=== PATIENT | female | born 1950 | race African-American/Black ===

== ENCOUNTER 2018-09-25 19:46 | Inpatient (IN) | payer OTHER ==
[~2018-09-25] VITALS: Ht 175.3 cm; Wt 109.8 kg
[2018-09-25] MEDS ORDERED: LOSARTAN POTASS25 MG ORAL (20:00)
[2018-09-25] MEDS ORDERED: MULTIVITAMINS1 EA14 PO (20:00)
--- NOTE | 2018-09-25 20:00 | Emergency Room Report ---
History of Present Illness General Chief Complaint: Chest Pain Source: Patient, Medical Record Present Illness HPI Patient presents with complaints of chest pain Reports that she was getting ready to sit down when she felt the pain in the left upper chest radiated to her left arm and shoulder paramedics were summoned patient was given nitroglycerin She was found to have an elevated blood pressure patient reports that she has kidney disease CHF autoimmune disease Patient reports that she is not very good at taking medications as she feels that they have caused her kidney failure denies any other Headache denies any vomiting or diarrhea patient reports that she also has chronic diffuse body pain secondary to her fibromyalgia Allergies: Coded Allergies: GLUTEN (Verified Allergy, Intermediate, 09/25/18) report Nut Tree (Verified Allergy, Intermediate, 09/25/18) breaks out in rash ASPIRIN (Verified Allergy, Unknown, 09/25/18) IODINE (Verified Allergy, Unknown, 09/25/18) PENICILLINS (Verified Allergy, Unknown, 09/25/18) SHELLFISH DERIVED (Verified Allergy, Unknown, 09/25/18) SULFA (SULFONAMIDE ANTIBIOTICS) (Verified Allergy, Unknown, 09/25/18) Patient History Past Medical History: see triage record Pertinent Family History: none Last Menstrual Period: n/a Reviewed Nursing Documentation: PMH: Agreed; PSxH: Agreed Nursing Documentation-PMH Hx COPD: Yes - COPD Review of Systems All Other Systems: negative except mentioned in HPI Physical Exam Vital Signs Date Time Temp Pulse Resp B/P (MAP) Pulse Ox O2 Delivery O2 Flow Rate FiO2 09/25/18 19:38 98.2 60 18 209/112 (144) 99 Room Air Sp02 EP Interpretation: reviewed, normal General Appearance: well appearing, no apparent distress Head: normocephalic, atraumatic Eyes: bilateral eye PERRL, bilateral eye EOMI ENT: hearing grossly normal, normal pharynx, TMs + canals normal, uvula midline Neck: full range of motion, supple, no meningismus, no bony tend Respiratory: lungs clear, normal breath sounds, no rhonchi, no respiratory distress, no retraction, no accessory muscle use Cardiovascular #1: normal peripheral pulses, regular rate, rhythm, no gallop, no JVD, no murmur Gastrointestinal: normal bowel sounds, non tender, soft, no mass, no organomegaly, non-distended, no guarding, no hernia, no pulsatile mass, no rebound Genitourinary: no CVA tenderness Musculoskeletal: other - Some weakness on the left compared to the right from previous CVA Neurologic: oriented x3, responsive, paginator III-XII nml as tested, motor strength/ tone normal, sensory intact Psychiatric: mood/affect normal Skin: palpation normal, other - Edema bilaterally Lymphatic: other - Edema bilaterally Medical Decision Making Diagnostic Impression: Primary Impression: ACS (acute coronary syndrome) Additional Impressions: CHF (congestive heart failure) Hypertensive emergency ER Course Patient is a fairly complex patient with multiple differential to consideration including but not limited to cardiac cardiopulmonary and vascular emergencies Patient's blood work initially are appropriate x-ray shows some evidence of congestion Patient provided with medications continues to do better and requires further inpatient care Labs Test 09/25/18 20:00 White Blood Count 7.1 K/UL (4.8-10.8) Red Blood Count 4.58 M/UL (4.20-5.40) Hemoglobin 13.5 G/DL (12.0-16.0) Hematocrit 40.9 % (37.0-47.0) Mean Corpuscular Volume 89 FL (80-99) Mean Corpuscular Hemoglobin 29.5 PG (27.0-31.0) Mean Corpuscular Hemoglobin Concent 33.0 G/DL (32.0-36.0) Red Cell Distribution Width 12.8 % (11.6-14.8) Platelet Count 217 K/UL (150-450) Mean Platelet Volume 9.1 FL (6.5-10.1) Neutrophils (%) (Auto) 61.8 % (45.0-75.0) Lymphocytes (%) (Auto) 27.2 % (20.0-45.0) Monocytes (%) (Auto) 7.1 % (1.0-10.0) Eosinophils (%) (Auto) 2.6 % (0.0-3.0) Basophils (%) (Auto) 1.3 % (0.0-2.0) Sodium Level 140 MMOL/L (136-145) Potassium Level 4.0 MMOL/L (3.5-5.1) Chloride Level 103 MMOL/L (98-107) Carbon Dioxide Level 30 MMOL/L (21-32) Anion Gap 7 mmol/L (5-15) Blood Urea Nitrogen 19 mg/dL (7-18) Creatinine 1.3 MG/DL (0.55-1.30) Estimat Glomerular Filtration Rate 41.0 mL/min (>60) Glucose Level 110 MG/DL (74-106) Calcium Level 9.9 MG/DL (8.5-10.1) Total Bilirubin 0.4 MG/DL (0.2-1.0) Aspartate Amino Transf (AST/SGOT) 17 U/L (15-37) Alanine Aminotransferase (ALT/SGPT) 25 U/L (12-78) Alkaline Phosphatase 92 U/L (46-116) Total Creatine Kinase 68 U/L (26-308) Creatine Kinase MB < 0.5 NG/ML (0.0-3.6) Creatine Kinase MB Relative Index 0.7 Troponin I 0.005 ng/mL (0.000-0.056) Pro-B-Type Natriuretic Peptide 169 pg/mL (0-125) Total Protein 8.1 G/DL (6.4-8.2) Albumin 4.4 G/DL (3.4-5.0) Globulin 3.7 g/dL Albumin/Globulin Ratio 1.2 (1.0-2.7) Lipase 177 U/L (73-393) EKG Diagnostic Results Rate: normal Rhythm: NSR ST Segments: other - lvh Rhythm Strip Diag. Results EP Interpretation: yes Rate: 66 Rhythm: NSR, no PVC's, no ectopy Chest X-Ray Diagnostic Results Chest X-Ray Diagnostic Results : Chest X-Ray Ordered: Yes # of Views/Limited/Complete: 1 View Indication: Chest Pain EP Interpretation: Yes Interpretation: no consolidation, no effusion, no pneumothorax, other - cardiomegaly Impression: Other - cardiomegaly, mild congestion Electronically Signed by: Lu Diamond DO Last Vital Signs Date Time Temp Pulse Resp B/P (MAP) Pulse Ox O2 Delivery O2 Flow Rate FiO2 09/25/18 19:38 98.2 60 18 209/112 (144) 99 Room Air Status: improved Disposition: ADMITTED INPATIENT Condition: Serious Lu Diamodn DO Sep 25, 2018 20:00
[2018-09-25] MEDS ORDERED: Morphine Sulfate 10mg/ml Inj IVP ONE (20:15)
[2018-09-25 20:20] LABS: BASOPHILS % (AUTO) 1.3 % (0.0-2.0); EOSINOPHILS % (AUTO) 2.6 % (0.0-3.0); HEMATOCRIT 40.9 % (37.0-47.0); HEMOGLOBIN 13.5 G/DL (12.0-16.0); LYMPHOCYTES % (AUTO) 27.2 % (20.0-45.0); MEAN CORPUSCULAR VOLUME 89 FL (80-99); MONOCYTES % (AUTO) 7.1 % (1.0-10.0); NEUTROPHILS % (AUTO) 61.8 % (45.0-75.0); PLATELET COUNT 217 K/UL (150-450); RED BLOOD COUNT 4.58 M/UL (4.20-5.40); RED CELL DISTRIBUTION WIDTH 12.8 % (11.6-14.8); WHITE BLOOD COUNT 7.1 K/UL (4.8-10.8)
[2018-09-25 20:34] LABS: ANION GAP 7 mmol/L (5-15); BLOOD UREA NITROGEN 19 mg/dL (7-18); CALCIUM 9.9 MG/DL (8.5-10.1); CARBON DIOXIDE 30 MMOL/L (21-32); CHLORIDE 103 MMOL/L (98-107); CREATININE 1.3 MG/DL (0.55-1.30); SODIUM 140 MMOL/L (136-145)
[2018-09-25 20:46] VITALS: BP 209/112
--- NOTE | 2018-09-25 20:46 | NUR ---
ER Nurse Note: Pt BIBA 70 from a sober living facility c/o chest pain. Pt stated LT sided chest pain that radiates to LT arm, 10/10 sharp pain, thats been lasting 20-30 mins prior to arrival. Pt a&ox4, BP 210/106 on route, vitals in range besides BP. Pt ambulatory with assist; walker at bedside. Per EMS, 1 spray of nitro given on route, no relief. Pt has not provided urine; will ask again. Will continue to motnior.
[2018-09-25 20:50] LABS: ALANINE AMINOTRANSFERASE 25 U/L (12-78); ALBUMIN 4.4 G/DL (3.4-5.0); ALBUMIN/GLOBULIN RATIO 1.2 (1.0-2.7); ALKALINE PHOSPHATASE 92 U/L (46-116); ASPARTATE AMINO TRANSFERASE 17 U/L (15-37); BILIRUBIN,TOTAL 0.4 MG/DL (0.2-1.0); CKMB < 0.5 NG/ML (0.0-3.6); CREATINE KINASE 68 U/L (26-308)
--- NOTE | 2018-09-25 21:09 | NUR ---
ER Nurse Note: Pt BP 185/92. All orders completed per ERMD orders. Awaiting admission orders and urine. Pt stated she will not take her BP meds because "it is on the list of harmful medications I saw on TV"; but wants to be on a different BP med. All safety measures met; will continue to montior.
[2018-09-25 22:22] VITALS: BP 168/98
--- NOTE | 2018-09-25 22:22 | NUR ---
ER Nurse Note: Report given to CATHLEEN Hackett in telemetry for continuity of care. Pt a&ox4, VSS, no signs of acute distress. All belongings taken with pt; walker taken.
--- NOTE | 2018-09-25 23:00 | NUR ---
NURSE NOTES: Pt arrived on unit. Awake alert and oriented x4 in stable condition. BP has decreased 175/95. Pt belonging form signed, belongings with pt at bedside. Bed is locked in lowest position, side rails x 2, bed alarm on. call light in reach. will continue to monitor.
[2018-09-25 23:08] VITALS: BP 175/95
[2018-09-26] VITALS: BP 148/77
[2018-09-26] MEDS ORDERED: Morphine Sulfate 2mg/ml Inj(IV/IM USE ONLY) IVP PRN (01:00)
--- NOTE | 2018-09-26 07:15 | NUR ---
NURSE NOTES: I received the patient awake and resting in bed. Patient alert and oriented x4. Patient's bed in the lowest and locked position and call light within reach. Patient does not display any signs of distress or SOB. I will continue to monitor the patient and implement care.
[2018-09-26 08:00] VITALS: BP 167/98
--- NOTE | 2018-09-26 11:00 | NUR ---
Social Service Note KEYLA met with patient to assess for homelessness. Patient is alert,oriented and verbally responsive. Patient is residing at [facility] located at [address] [place] [address]. [place] [id number]. KEYLA spoke with youth program director Wojciech [phone] option 3. Wojciech confirmed patient can return to this program upon discharge. Patient requesting permanent housing. SW explained that there is a process in obtaining permanent housing and that her current program assists with this. SW also discussed [facility] Referral form for bridge/interim housing program. Patient would like to complete application and homeless coordinator will help assist with form completion. Patient didn't want to address contributing factors to her homelessness. Patient not interested in shared housing, independent living or any situation in which she needs to share a room. Patient indicates having a mental health disorder however will not provide diagnosis. Rima Enriquez [phone] listed as an emergency contact but patient wouldn't disclose relationship and didn't want her contacted. Patient will return to [facility] upon discharge. Wojciech to be contacted provide to transport. Patient can dc via taxi. Will continue to monitor and assist as needed.
--- NOTE | 2018-09-26 11:56 | NUR ---
HOMELESS COORDINATOR HC spoke with patient and patient is alert and oriented. Patient does have a contact number, . Patient is currently living at [place] [phone] . Patient has been living at this location for two weeks now. Patient has no personal injury legal assistant. Patient is very interested in applying for the permanent housing program. HC will submit application. Patient receives in $1,800 in SSI. Patient states she is currently not using any drugs. Patient states she does have a mental disorder. Patient refuses resources. Patient is okay and aware of returning back to [facility] upon discharge. Patient has a follow up appointment December 19, 2018 @ 11:20am Dr. Rocio Connell at [facility] [address] [place] [phone] .
[2018-09-26 12:00] VITALS: BP 163/88
--- NOTE | 2018-09-26 13:23 | NUR ---
CASE MANAGEMENT:REVIEW 68 YR OLD FEMALE BIBA FROM [place] CC: CHEST PAIN PMH: ALLERGIC TO ASPIRIN SI: HYPERTENSIVE EMERGENCY. 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
--- NOTE | 2018-09-26 14:29 | Consultation ---
Consult Note Consult Note asked to eval for BP management HPI Patient presents with complaints of chest pain Reports that she was getting ready to sit down when she felt the pain in the left upper chest radiated to her left arm and shoulder paramedics were summoned patient was given nitroglycerin She was found to have an elevated blood pressure patient reports that she has kidney disease CHF autoimmune disease Patient reports that she is not very good at taking medications as she feels that they have caused her kidney failure denies any other Headache denies any vomiting or diarrhea patient reports that she also has chronic diffuse body pain secondary to her fibromyalgia Allergies: ASPIRIN (Verified Allergy, Unknown, 09/25/18) IODINE (Verified Allergy, Unknown, 09/25/18) PENICILLINS (Verified Allergy, Unknown, 09/25/18) SHELLFISH DERIVED (Verified Allergy, Unknown, 09/25/18) SULFA (SULFONAMIDE ANTIBIOTICS) (Verified Allergy, Unknown, 09/25/18) Hx COPD: Yes - COPD interviewed examined data reviewed Assessment/Plan HTN OOC Obese COPD CP . r/o Cardiac ischemia BP management UA check labs per orders Gary Pratt MD Sep 26, 2018 14:29
--- NOTE | 2018-09-26 14:31 | Diagnostic Imaging Report ---
Indication: Chest pain Technique: One view of the chest Comparison: Then Findings: Lungs and pleural spaces are clear. The heart is mildly enlarged. Impression: Borderline cardiomegaly. No acute process
--- NOTE | 2018-09-26 15:25 | Cardiology Report ---
APPROVED REPORT EKG Measurement Heart [id number] Sinus bradycardia Moderate voltage criteria for LVH, may be normal variant Borderline ECG
--- NOTE | 2018-09-26 15:25 | NUR ---
*-* INSURANCE *-* ALL CLINICALS AND REVIEWS HAVE BEEN FAXED TO: [employer] NO EVENT MANAGEMENT CONSULTANT ASSIGNED AT THIS TIME PLEASE FAX THE REVIEW/CLINICAL P- [phone] F- [phone]......REVIEW & CLINICALS
[2018-09-26 16:00] VITALS: BP 185/94
[2018-09-26 17:46] LABS: APPEARANCE,URINE CLEAR; BILIRUBIN, URINE NEGATIVE (NEGATIVE); COLOR,URINE PALE YELLOW; GLUCOSE, URINE (UA) NEGATIVE (NEGATIVE); KETONES,URINE NEGATIVE (NEGATIVE); LEUKOCYTE ESTERASE ,URINE NEGATIVE (NEGATIVE); NITRITE,URINE NEGATIVE (NEGATIVE); PH,URINE 8 (4.5-8.0); PROTEIN,URINE NEGATIVE (NEGATIVE); UROBILINOGEN,URINE NORMAL MG/DL (0.0-1.0)
--- NOTE | 2018-09-26 19:13 | NUR ---
HAND-OFF: Report given to Nlei Reynoso RN.
--- NOTE | 2018-09-26 19:15 | NUR ---
NURSE NOTES: Received report from Neli Estevez RN. Patient in bed AAO X4 with no complaints of acute pain or distress at this time. Kept clean, dry, and comfortable in bed at all times. Able to verbally express needs and wants without difficulty. IV line intact and patent and on continuous cardiac monitoring per protocol. On pure-wick for incontinence and changed when soiled PRN. Placed on RA with no S/S of resp distress or SOB noted at this time, 02 sat at 95-96%. Safety precaution in place; siderails X3 up, call light within reach, bed in lowest position, brakes and alarm on at all times. Needs and wants anticipated and attended, will continue plan of care and monitor for any changes noted.
--- NOTE | 2018-09-26 19:26 | Consultation ---
History of Present Illness General Date patient seen: Sep 26, 2018 Chief Complaint: Present Illness Allergies: Coded Allergies: GLUTEN (Verified Allergy, Intermediate, 09/25/18) report Nut Tree (Verified Allergy, Intermediate, 09/25/18) breaks out in rash ASPIRIN (Verified Allergy, Unknown, 09/25/18) IODINE (Verified Allergy, Unknown, 09/25/18) PENICILLINS (Verified Allergy, Unknown, 09/25/18) SHELLFISH DERIVED (Verified Allergy, Unknown, 09/25/18) SULFA (SULFONAMIDE ANTIBIOTICS) (Verified Allergy, Unknown, 09/25/18) Medication History Scheduled Losartan Potassium* (Losartan Potassium*), 25 MG ORAL DAILY, (Reported) Miscellaneous Medications Multivitamin (Multivitamins), 1 EACH PO, (Reported) Patient History Healthcare decision maker Resuscitation status Full Code Advanced Directive on File Physical Exam Last 24 Hour Vital Signs Date Time Temp Pulse Resp B/P (MAP) Pulse Ox O2 Delivery O2 Flow Rate FiO2 09/26/18 16:00 98.7 52 18 185/94 (124) 96 09/26/18 15:34 48 09/26/18 14:45 68 163/88 09/26/18 12:00 98.4 68 20 163/88 (113) 99 09/26/18 11:56 57 09/26/18 11:10 97.9 09/26/18 09:00 Room Air 09/26/18 08:02 52 09/26/18 08:00 97.9 58 20 167/98 (121) 97 09/26/18 04:00 44 09/26/18 01:38 98.2 09/26/18 00:00 52 09/26/18 00:00 98.2 50 18 148/77 (100) 96 09/25/18 23:20 Room Air 09/25/18 23:08 98.6 54 22 175/95 (121) 97 09/25/18 22:22 98.2 82 17 168/98 99 Room Air 09/25/18 22:22 98.2 84 17 168/98 99 Room Air 09/25/18 20:46 60 18 Room Air 09/25/18 20:46 98.2 86 18 209/112 99 Room Air 09/25/18 19:38 98.2 60 18 209/112 (144) 99 Room Air Intake and Output 09/25/18 09/26/18 19:00 07:00 Intake Total 1500 ml Output Total 400 ml Balance 1100 ml IV Total 1500 ml Output Urine Total 400 ml Laboratory Tests Test 09/25/18 20:00 09/26/18 07:00 09/26/18 17:30 White Blood Count 7.1 K/UL (4.8-10.8) Red Blood Count 4.58 M/UL (4.20-5.40) Hemoglobin 13.5 G/DL (12.0-16.0) Hematocrit 40.9 % (37.0-47.0) Mean Corpuscular Volume 89 FL (80-99) Mean Corpuscular Hemoglobin 29.5 PG (27.0-31.0) Mean Corpuscular Hemoglobin Concent 33.0 G/DL (32.0-36.0) Red Cell Distribution Width 12.8 % (11.6-14.8) Platelet Count 217 K/UL (150-450) Mean Platelet Volume 9.1 FL (6.5-10.1) Neutrophils (%) (Auto) 61.8 % (45.0-75.0) Lymphocytes (%) (Auto) 27.2 % (20.0-45.0) Monocytes (%) (Auto) 7.1 % (1.0-10.0) Eosinophils (%) (Auto) 2.6 % (0.0-3.0) Basophils (%) (Auto) 1.3 % (0.0-2.0) Sodium Level 140 MMOL/L (136-145) Potassium Level 4.0 MMOL/L (3.5-5.1) Chloride Level 103 MMOL/L (98-107) Carbon Dioxide Level 30 MMOL/L (21-32) Anion Gap 7 mmol/L (5-15) Blood Urea Nitrogen 19 mg/dL (7-18) H Creatinine 1.3 MG/DL (0.55-1.30) Estimat Glomerular Filtration Rate 41.0 mL/min (>60) Glucose Level 110 MG/DL (74-106) H Calcium Level 9.9 MG/DL (8.5-10.1) Total Bilirubin 0.4 MG/DL (0.2-1.0) Aspartate Amino Transf (AST/SGOT) 17 U/L (15-37) Alanine Aminotransferase (ALT/SGPT) 25 U/L (12-78) Alkaline Phosphatase 92 U/L (46-116) Total Creatine Kinase 68 U/L (26-308) Creatine Kinase MB < 0.5 NG/ML (0.0-3.6) Creatine Kinase MB Relative Index 0.7 Troponin I 0.005 ng/mL (0.000-0.056) Pro-B-Type Natriuretic Peptide 169 pg/mL (0-125) H Total Protein 8.1 G/DL (6.4-8.2) Albumin 4.4 G/DL (3.4-5.0) Globulin 3.7 g/dL Albumin/Globulin Ratio 1.2 (1.0-2.7) Lipase 177 U/L (73-393) Urine Opiates Screen Positive (NEGATIVE) H Urine Barbiturates Screen Negative (NEGATIVE) Phencyclidine (PCP) Screen Negative (NEGATIVE) Urine Amphetamines Screen Negative (NEGATIVE) Urine Benzodiazepines Screen Negative (NEGATIVE) Urine Cocaine Screen Negative (NEGATIVE) Urine Marijuana (THC) Screen Negative (NEGATIVE) Urine Color Pale yellow Urine Appearance Clear Urine pH 8 (4.5-8.0) Urine Specific [place] 1.010 (1.005-1.035) Urine Protein Negative (NEGATIVE) Urine Glucose (UA) Negative (NEGATIVE) Urine Ketones Negative (NEGATIVE) Urine Blood Negative (NEGATIVE) Urine Nitrite Negative (NEGATIVE) Urine Bilirubin Negative (NEGATIVE) Urine Urobilinogen Normal MG/DL (0.0-1.0) Urine Leukocyte Esterase Negative (NEGATIVE) Urine RBC 0 /HPF (0 - 2) Urine WBC 0 /HPF (0 - 2) Urine Squamous Epithelial Cells Few /LPF (NONE/OCC) Urine Bacteria Moderate /HPF (NONE) H Microbiology Date/Time Source Procedure Growth Status 09/25/18 22:10 Rectum Received Height (Feet): 5 Height (Inches): 9.00 Weight (Pounds): 245 Medications Current Medications Medications (Trade) Dose Ordered Sig/Clyde Route PRN Reason Start Time Stop Time Status Last Admin Dose Admin Acetaminophen (Tylenol) 650 mg Q4H PRN ORAL Mild Pain/Temp > 100.5 09/26/18 00:00 10/26/18 00:00 09/26/18 10:40 Amlodipine Besylate (Norvasc) 10 mg DAILY ORAL 09/26/18 14:45 10/26/18 14:44 Hydralazine HCl (Apresoline) 25 mg Q4H PRN ORAL bp over 160 syst 09/26/18 14:45 10/26/18 14:44 Losartan Potassium (Cozaar) 50 mg DAILY ORAL 09/27/18 09:00 10/27/18 08:59 Morphine Sulfate (Morphine Sulfate) 2 mg Q4H PRN IVP For Pain 09/26/18 01:00 10/03/18 00:59 Ondansetron HCl (Zofran) 4 mg Q6H PRN IVP Nausea & Vomiting 09/26/18 01:00 10/26/18 00:59 Assessment/Plan Assessment/Plan: (1) H/o Stroke (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
[2018-09-26 20:00] VITALS: BP 127/59
[2018-09-26] MEDS: Tylenol #3 tab (300mg/30mg) ORAL PRN (20:52)
--- NOTE | 2018-09-26 20:59 | Consultation ---
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 She reports that she was getting ready to sit down when she felt the pain in the left upper chest radiated to her left arm and shoulder. EMS was activated and she was found to be hypertensive at the scene, where she was given Nitroglycerin. She was brought to [facility] where she also reports that she has noted increasing headaches and episodes of blurred vision in the recent past and currently feels , numb / tingly on the left side of her face, arm and leg. She still has residual left weakness from her previously reported stroke but reports that she is weaker presently than she has been since her stroke. Allergies: Coded Allergies: GLUTEN (Verified Allergy, Intermediate, 09/25/18) report Nut Tree (Verified Allergy, Intermediate, 09/25/18) breaks out in rash ASPIRIN (Verified Allergy, Unknown, 09/25/18) IODINE (Verified Allergy, Unknown, 09/25/18) PENICILLINS (Verified Allergy, Unknown, 09/25/18) SHELLFISH DERIVED (Verified Allergy, Unknown, 09/25/18) SULFA (SULFONAMIDE ANTIBIOTICS) (Verified Allergy, Unknown, 09/25/18) Medication History Scheduled Losartan Potassium* (Losartan Potassium*), 25 MG ORAL DAILY, (Reported) Miscellaneous Medications Multivitamin (Multivitamins), 1 EACH PO, (Reported) Patient History History Provided By: Patient, Medical Record Healthcare decision maker Resuscitation status Full Code Advanced Directive on File Past Medical/Surgical History Past Medical/Surgical History: (1) ESRD (end stage renal disease) (2) Fibromyalgia (3) History of CVA with residual deficit (4) CHF (congestive heart failure) Review of Systems Constitutional: Reports: malaise, weakness; Denies: no symptoms, see HPI, chills, sweats, fever, other Eye: Reports: blurred vision; Denies: no symptoms, see HPI, eye pain, tearing, double vision, nose pain, nose congestion, acuity changes, discharge, other ENT: Denies: no symptoms, see HPI, ear pain, ear discharge, nose pain, nose congestion, throat pain, throat swelling, mouth pain, hearing loss, nasal discharge, other Respiratory: Denies: no symptoms, see HPI, cough, orthopnea, shortness of breath, stridor, wheezing, COLEMAN, sputum, other Cardiovascular: Denies: no symptoms, see HPI, chest pain, edema, palpitations, syncope, PND, other Gastrointestinal: Denies: no symptoms, see HPI, abdominal pain, constipation, diarrhea, nausea, vomiting, melena, hematemesis, other Genitourinary: Denies: no symptoms, see HPI, discharge, dysuria, frequency, hematuria, pain, retention, incontinence, urgency, vag bleed/dc, other Musculoskeletal: Reports: joint pain, muscle pain; Denies: no symptoms, see HPI , back pain, gout, joint swelling, muscle stiffness, other Skin: Denies: no symptoms, see HPI, rash, change in color, change in hair/nails , dryness, lesions, other Psychiatric: Reports: anxiety; Denies: no symptoms, see HPI, prior hx, depressed feelings, emotional problems, SI, HI, hallucinations, other Neurological: Reports: headache, numbness, paresthesia, tingling, focal weakness; Denies: no symptoms, see HPI, seizure, tremors, syncope, dizziness, other Endocrine: Reports: excessive sweating Hematologic/Lymphatic: Denies: no symptoms, see HPI, anemia, blood clots, easy bleeding, easy bruising, swollen glands, diathesis, other Physical Exam General Appearance: WD/WN, no apparent distress, alert, obese Lines, tubes and drains: peripheral HEENT: normocephalic, atraumatic, anicteric, mucous membranes moist, PERRL, EOMI, pharynx normal, supple, no JVD Neck: non-tender, normal alignment, supple, normal inspection Respiratory/Chest: normal breath sounds, no respiratory distress, no accessory muscle use Cardiovascular/Chest: normal peripheral pulses, no JVD Extremities: normal capillary refill, non-pitting, calf tenderness, inflammation, moderate edema Skin Exam: normal pigmentation, warm/dry, no diaphoresis Neurologic: alert, oriented x 3, responsive, normal mood/affect, abnormal CN, motor weakness, sensory deficit Musculoskeletal: normal muscle bulk, no effusion Physical Exam Narrative Residual left plegia in face, arm, leg- but reporting new tingling on left face , arm, leg with increased weakness. Has been able to stand and walk. Uses a 4 wheel walker at baseline. Last 24 Hour Vital Signs Date Time Temp Pulse Resp B/P (MAP) Pulse Ox O2 Delivery O2 Flow Rate FiO2 09/26/18 16:00 98.7 52 18 185/94 (124) 96 09/26/18 15:34 48 09/26/18 14:45 68 163/88 09/26/18 12:00 98.4 68 20 163/88 (113) 99 09/26/18 11:56 57 09/26/18 11:10 97.9 09/26/18 09:00 Room Air 09/26/18 08:02 52 09/26/18 08:00 97.9 58 20 167/98 (121) 97 09/26/18 04:00 44 09/26/18 01:38 98.2 09/26/18 00:00 52 09/26/18 00:00 98.2 50 18 148/77 (100) 96 09/25/18 23:20 Room Air 09/25/18 23:08 98.6 54 22 175/95 (121) 97 09/25/18 22:22 98.2 82 17 168/98 99 Room Air 09/25/18 22:22 98.2 84 17 168/98 99 Room Air Intake and Output 09/25/18 09/26/18 19:00 07:00 Intake Total 1500 ml Output Total 400 ml Balance 1100 ml IV Total 1500 ml Output Urine Total 400 ml Laboratory Tests Test 09/26/18 07:00 09/26/18 17:30 Urine Opiates Screen Positive (NEGATIVE) H Urine Barbiturates Screen Negative (NEGATIVE) Phencyclidine (PCP) Screen Negative (NEGATIVE) Urine Amphetamines Screen Negative (NEGATIVE) Urine Benzodiazepines Screen Negative (NEGATIVE) Urine Cocaine Screen Negative (NEGATIVE) Urine Marijuana (THC) Screen Negative (NEGATIVE) Urine Color Pale yellow Urine Appearance Clear Urine pH 8 (4.5-8.0) Urine Specific [place] 1.010 (1.005-1.035) Urine Protein Negative (NEGATIVE) Urine Glucose (UA) Negative (NEGATIVE) Urine Ketones Negative (NEGATIVE) Urine Blood Negative (NEGATIVE) Urine Nitrite Negative (NEGATIVE) Urine Bilirubin Negative (NEGATIVE) Urine Urobilinogen Normal MG/DL (0.0-1.0) Urine Leukocyte Esterase Negative (NEGATIVE) Urine RBC 0 /HPF (0 - 2) Urine WBC 0 /HPF (0 - 2) Urine Squamous Epithelial Cells Few /LPF (NONE/OCC) Urine Bacteria Moderate /HPF (NONE) H Microbiology Date/Time Source Procedure Growth Status 09/25/18 22:10 Rectum Received Height (Feet): 5 Height (Inches): 9.00 Weight (Pounds): 245 Medications Current Medications Medications (Trade) Dose Ordered Sig/Clyde Route PRN Reason Start Time Stop Time Status Last Admin Dose Admin Acetaminophen (Tylenol) 650 mg Q4H PRN ORAL Mild Pain/Temp > 100.5 09/26/18 00:00 10/26/18 00:00 09/26/18 10:40 Acetaminophen/ Codeine Phosphate (Tylenol #3) 1 tab Q6H PRN ORAL Severe Pain (Pain Scale 7-10) 09/26/18 19:30 10/03/18 19:29 09/26/18 20:52 Amlodipine Besylate (Norvasc) 10 mg DAILY ORAL 09/26/18 14:45 10/26/18 14:44 Hydralazine HCl (Apresoline) 25 mg Q4H PRN ORAL bp over 160 syst 09/26/18 14:45 10/26/18 14:44 Losartan Potassium (Cozaar) 50 mg DAILY ORAL 09/27/18 09:00 10/27/18 08:59 Ondansetron HCl (Zofran) 4 mg Q6H PRN IVP Nausea & Vomiting 09/26/18 01:00 10/26/18 00:59 Assessment/Plan Problem List: (1) ACS (acute coronary syndrome) ICD Codes: I24.9 - Acute ischemic heart disease, unspecified SNOMED: 596429240 (2) Hypertensive emergency ICD Codes: I16.1 - Hypertensive emergency SNOMED: 170545475001592 (3) Fibromyalgia ICD Codes: M79.7 - Fibromyalgia SNOMED: 505899908 (4) CHF (congestive heart failure) ICD Codes: I50.9 - Heart failure, unspecified SNOMED: 98046480 (5) ESRD (end stage renal disease) ICD Codes: N18.6 - End stage renal disease SNOMED: 83537647 (6) History of CVA with residual deficit ICD Codes: I69.30 - Unspecified sequelae of cerebral infarction SNOMED: 262932412 Status: stable, tolerating diet Assessment/Plan: MRI Brain w/o contrast to rule out acute CVA Tropnonin negative TTE ST Swallow eval PT Eval Q4 Hour Neuro Obs Maintain SBP<140 Since allergic to ASA , consider starting PLAVIX Check lipids Check HgBA1c Venous U/S of legs bilaterally Sahara Robin N.P. Sep 26, 2018 20:59
[2018-09-27] VITALS (7 sets, daily range): BP systolic 150–170; BP diastolic 80–89
--- NOTE | 2018-09-27 01:15 | Consultation ---
DATE OF CONSULTATION: 09/26/2018 PAIN MANAGEMENT CONSULTATION CONSULTING PHYSICIAN: Smith Crane M.D. REFERRING PHYSICIAN: Lu Membreno M.D. PHYSICIAN SHOE STAINER: Ramy Santizo CHIEF COMPLAINT: Generalized body pain. HISTORY OF PRESENT ILLNESS: The patient is a 68-year-old female who is being seen on the telemetry floor of [facility] for initial pain management consultation. The patient has been under the care of Dr. Membreno due to complaints of hypertensive emergency and has complaint of generalized body pain. She is reporting that she had a stroke in the past with left-sided weakness and multiple joint pains due to osteoarthritis. Due to this, we were consulted so that the patient would have adequate pain control while here in the hospital. Start the patient on Tylenol No. 3 one tablet every six hours as needed for pain. She seems to understand this and does not want to be on any chronic neuropathic pain medication due to history of use and causing her severe side effects. PAST MEDICAL HISTORY: COPD, history of stroke, congestive heart failure, coronary artery disease, hypertension, DVT, GERD, osteoarthritis, hypothyroidism, and chronic kidney disease. PAST SURGICAL HISTORY: Left ankle fracture. SOCIAL HISTORY: Denies smoking tobacco, drinking alcohol, or drug abuse. ALLERGIES: Aspirin, gluten, iodine, penicillin, shellfish, and sulfa. MEDICATIONS: Losartan. REVIEW OF SYSTEMS: Denies rash, fever, chills, sweating, dizziness, drowsiness, blurred vision, sore throat, change in hearing or weight. No nausea, vomiting, or blood in the stool or urine. No bowel or bladder incontinence. No dysuria. She is complaining of generalized body pain. PHYSICAL EXAMINATION: GENERAL: Alert, awake, oriented. VITAL SIGNS: Blood pressure 185/94, heart rate is 52, oxygen saturation 96%, respirations 18, and temperature 98.7 degrees Fahrenheit. HEENT: PERRLA. NECK: Range of motion is decreased due to the patient's condition. No tenderness to paracervical muscles. No adenopathy. LUNGS: Decreased breath sounds bilaterally. HEART: Regular. ABDOMEN: Obese. BACK: Range of motion is decreased in flexion and extension. EXTREMITIES: Range of motion is decreased due to the patient's condition with left-sided weakness noted. No cyanosis. No clubbing. Edema noted. Sensory is reduced. Reflexes are not obtainable. No adenopathy. ASSESSMENT AND PLAN: This is a 68-year-old female with thalamic pain syndrome, history of stroke, multiple joint osteoarthritis pain. We started patient on Tylenol No. 3 one tablet every 6 hours as needed for severe pain. The patient was discussed with Dr. Crane, and Dr. Crane concurred. We will follow the patient. Thank you very much for the courtesy of this consultation. Smith Crane M.D. CASSIDY Santizo DR: SHASHI JOB#: [id number] CC: MARGIE
[2018-09-27] MEDS: HydrALAZINE 25mg tab ORAL PRN (01:40)
--- NOTE | 2018-09-27 01:40 | NUR ---
NURSE NOTES: Given PRN Hydralazine 25mg Po for BP 170/89. Will re-check again in an hour
--- NOTE | 2018-09-27 02:40 | NUR ---
NURSE NOTES: Rechecked BP. 145/67 with no S/S of distress noted. Will continue to monitor
--- NOTE | 2018-09-27 03:00 | History and Physical Report ---
DATE OF ADMISSION: 09/25/2018 HISTORY OF PRESENT ILLNESS: The patient was admitted basically for chest pain and uncontrolled hypertension. Chest x-ray with vascular congestion. The patient also complains of tingling and numbness on the left side and headache, vomiting, and diaphoresis. In general lower extremity weakness for one day. The patient has history of CVA. [place] The patient has left-sided paresis for one day. He has hypertension, noncompliant with medications. PAST MEDICAL HISTORY: History of CVA, hypertension. PAST SURGICAL HISTORY: Foot surgery, hysterectomy. He usually walks with a walker. MEDICATIONS: He cannot tell what are the medications. ALLERGIES: Aspirin, penicillin, . SOCIAL HISTORY: Denies smoking, alcohol, or illicit drugs: Currently lives in a detention. REVIEW OF SYSTEMS: HEENT: Denies headaches. RESPIRATORY: Denies shortness of breath. Denies cough. CARDIOVASCULAR: Positive for chest pain. No radiation. GASTROINTESTINAL: Denies nausea, vomiting, or diarrhea. EXTREMITIES: Denies pain. CENTRAL NERVOUS SYSTEM: No change in vision or speech pattern; however, does have tingling and paresthesia and left-sided weakness for one day on the left side. Also has headache and complains of headache. PHYSICAL EXAMINATION: VITAL SIGNS: Temperature is 98.4, pulse is 68, blood pressure 163/88. HEENT: PERRLA. NECK: Supple. No lymphadenopathy. CHEST: Clear to auscultation. CARDIOVASCULAR: Regular rate and rhythm. No murmurs or extra sounds. GASTROINTESTINAL: Soft, nontender, and nondistended. No organomegaly. EXTREMITIES: No edema. Moves all four extremities. Sensory intact to light touch. Reflexes are equal on both sides. Does have some residual left-sided weakness, however, this could be from previous stroke. The patient has some weakness on the right side. No facial droop. LABORATORY DATA: WBC of 7.1, hemoglobin 13.5, platelets 217. Sodium 140, potassium 4, BUN of 19, creatinine 1.3, and glucose of 110. ASSESSMENT/PLAN: 1. Rule out CVA. 2. Chest pain. 3. Hypertension and hypertensive urgency. I have asked Dr. Gomez, Dr. Pratt, Dr. Carlos Cohen, Dr. Crane see the patient for the above-mentioned diagnoses as well as for generalized pain management so Dr. Crane will be in-charge for pain management since the patient complains of generalized pain. Lu Membreno M.D. DR: Mari JOB#: [id number] CC:
--- NOTE | 2018-09-27 03:00 | NUR ---
NURSE NOTES: Patient in bed asleep with no S/S of distress noted. Will continue to monitor.
[2018-09-27 07:03] LABS: BASOPHILS % (AUTO) 0.8 % (0.0-2.0); EOSINOPHILS % (AUTO) 5.4 % (0.0-3.0); HEMATOCRIT 34.9 % (37.0-47.0); HEMOGLOBIN 11.6 G/DL (12.0-16.0); LYMPHOCYTES % (AUTO) 34.4 % (20.0-45.0); MEAN CORPUSCULAR VOLUME 92 FL (80-99); MONOCYTES % (AUTO) 8.4 % (1.0-10.0); PLATELET COUNT 165 K/UL (150-450); RED BLOOD COUNT 3.79 M/UL (4.20-5.40); RED CELL DISTRIBUTION WIDTH 13.1 % (11.6-14.8); WHITE BLOOD COUNT 4.2 K/UL (4.8-10.8)
[2018-09-27 07:12] LABS: GAMMA GLUTAMYL TRANSPEPTIDASE 20 U/L (5-85); PHOSPHORUS 3.8 MG/DL (2.5-4.9)
--- NOTE | 2018-09-27 07:20 | NUR ---
NURSE NOTES: Report received from CATHLEEN Garibay. Patient awake having breakfast. AOx4. In RA, denies SOB or any pain. IV R AC 22g, patent, intact, SL. Bed on lowest position, side rails upx2, brakes engaged. Call light within easy reach. Addendum: 09/27/18 at 0757 by Benjamin Rene RN NURSE NOTES: Report received from CATHLEEN Hayden. Patient awake having breakfast. AOx4. In RA, denies SOB or any pain. IV R AC 22g, patent, intact, SL. Bed on lowest position, side rails upx2, brakes engaged. Call light within easy reach
[2018-09-27 07:31] LABS: ALANINE AMINOTRANSFERASE 19 U/L (12-78); ALBUMIN 2.9 G/DL (3.4-5.0); ALBUMIN/GLOBULIN RATIO 0.9 (1.0-2.7); ALKALINE PHOSPHATASE 69 U/L (46-116); ANION GAP 6 mmol/L (5-15); ASPARTATE AMINO TRANSFERASE 12 U/L (15-37); BILIRUBIN,TOTAL 0.4 MG/DL (0.2-1.0); BLOOD UREA NITROGEN 24 mg/dL (7-18); CALCIUM 8.5 MG/DL (8.5-10.1); CARBON DIOXIDE 28 MMOL/L (21-32); CHLORIDE 107 MMOL/L (98-107); CHOLESTEROL 184 MG/DL (< 200); CREATININE 1.3 MG/DL (0.55-1.30); HDL CHOLESTEROL 45 MG/DL (40-60); POTASSIUM 4.2 MMOL/L (3.5-5.1); SODIUM 141 MMOL/L (136-145); TRIGLYCERIDES 58 MG/DL (30-150)
--- NOTE | 2018-09-27 07:37 | NUR ---
HAND-OFF: Report given to Tosha Rene RN. Patient in bed with no S/S of distress noted. Endorsed plan of care.
--- NOTE | 2018-09-27 08:50 | NUR ---
NURSE NOTES: Patient refused both BP meds, Cozaar 50mg, Norvasc 10mg. Teaching done. Pt monetant. Dr. Membreno aware. Advised to communicate with Dr. Pratt or Dr. Gomez. Will follow up
[2018-09-27] MEDS ORDERED: Losartan 50mg tab ORAL SCH ×2 (09:00→18:00)
--- NOTE | 2018-09-27 09:13 | General Progress Note ---
Assessment/Plan Assessment/Plan: (1) H/o Stroke (2) Thalamic pain syndrome (3) Multiple joint OA and pain Patient will be continued on Tylenol #3. D/w Dr. Crane and he concurred. Subjective Date patient seen: Sep 27, 2018 Time patient seen: 08:45 - am Allergies: Coded Allergies: GLUTEN (Verified Allergy, Intermediate, 09/25/18) report Nut Tree (Verified Allergy, Intermediate, 09/25/18) breaks out in rash ASPIRIN (Verified Allergy, Unknown, 09/25/18) IODINE (Verified Allergy, Unknown, 09/25/18) PENICILLINS (Verified Allergy, Unknown, 09/25/18) SHELLFISH DERIVED (Verified Allergy, Unknown, 09/25/18) SULFA (SULFONAMIDE ANTIBIOTICS) (Verified Allergy, Unknown, 09/25/18) Subjective REVIEW OF SYSTEMS: Denies rash, fever, chills, sweating, dizziness, drowsiness, blurred vision, sore throat, change in hearing or weight. No nausea, vomiting, or blood in the stool or urine. No bowel or bladder incontinence. No dysuria. She is complaining of generalized body pain. SUBJECTIVE: Patient is in bed continues to c/o pain which was reduced on the Tylenol #3 from a 10/10 to a 2/10 when taken. She has no new complaints at this time. Objective Last 24 Hour Vital Signs Date Time Temp Pulse Resp B/P (MAP) Pulse Ox O2 Delivery O2 Flow Rate FiO2 09/27/18 04:00 96.6 59 18 152/80 (104) 96 09/27/18 04:00 58 09/27/18 01:40 170/89 09/27/18 00:00 59 09/27/18 00:00 97.8 67 18 170/89 (116) 95 09/26/18 21:00 Room Air 09/26/18 20:00 98.7 64 18 127/59 (81) 97 09/26/18 20:00 55 09/26/18 16:00 98.7 52 18 185/94 (124) 96 09/26/18 15:34 48 09/26/18 14:45 68 163/88 09/26/18 12:00 98.4 68 20 163/88 (113) 99 09/26/18 11:56 57 09/26/18 11:10 97.9 Intake and Output 09/26/18 09/27/18 19:00 07:00 Intake Total 620 ml Output Total 1400 ml 600 ml Balance -780 ml -600 ml Intake Oral 620 ml Output Urine Total 1400 ml 600 ml Laboratory Tests 09/26/18 17:30: Urine Color Pale yellow, Urine Appearance Clear, Urine pH 8, Urine Specific [place] 1.010, Urine Protein Negative, Urine Glucose (UA) Negative, Urine Ketones Negative, Urine Blood Negative, Urine Nitrite Negative, Urine Bilirubin Negative, Urine Urobilinogen Normal, Urine Leukocyte Esterase Negative, Urine RBC 0, Urine WBC 0, Urine Squamous Epithelial Cells Few, Urine Bacteria ModerateH 09/27/18 04:50: White Blood Count 4.2L, Red Blood Count 3.79L, Hemoglobin 11.6L, Hematocrit 34.9L, Mean Corpuscular Volume 92, Mean Corpuscular Hemoglobin 30.7, Mean Corpuscular Hemoglobin Concent 33.3, Red Cell Distribution Width 13.1, Platelet Count 165, Mean Platelet Volume 10.0, Neutrophils (%) (Auto) 51.0, Lymphocytes ( %) (Auto) 34.4, Monocytes (%) (Auto) 8.4, Eosinophils (%) (Auto) 5.4H, Basophils (%) (Auto) 0.8, Sodium Level 141, Potassium Level 4.2, Chloride Level 107, Carbon Dioxide Level 28, Anion Gap 6, Blood Urea Nitrogen 24H, Creatinine 1.3, Estimat Glomerular Filtration Rate 49.7, Glucose Level 99, Hemoglobin A1c 5.3, Uric Acid 3.7, Calcium Level 8.5, Phosphorus Level 3.8, Magnesium Level 2.0 , Total Bilirubin 0.4, Gamma Glutamyl Transpeptidase 20, Aspartate Amino Transf (AST/SGOT) 12L, Alanine Aminotransferase (ALT/SGPT) 19, Alkaline Phosphatase 69 , C-Reactive Protein, Quantitative < 0.4, Pro-B-Type Natriuretic Peptide 226H, Total Protein 6.0L, Albumin 2.9L, Globulin 3.1, Albumin/Globulin Ratio 0.9L, Triglycerides Level 58, Cholesterol Level 184, LDL Cholesterol 126H, HDL Cholesterol 45, Cholesterol/HDL Ratio 4.1, Thyroid Stimulating Hormone (TSH) 0.962 Height (Feet): 5 Height (Inches): 9.00 Weight (Pounds): 242 Objective GENERAL: Alert, awake, oriented. LUNGS: Decreased breath sounds bilaterally. HEART: S1 S2 Regular. ABDOMEN: Obese. EXTREMITIES: No cyanosis. No clubbing. Edema noted. NEURO: No changes. Shlomo Bates Sep 27, 2018 09:13
--- NOTE | 2018-09-27 09:19 | NUR ---
ST NOTE: BEDSIDE SWALLOW EVAL RECEIVED BEDSIDE SWALLOW EVAL ORDER CHART REVIEWED PRIOR THE EVALUATION PT IS A 68-YEAR-OLD FEMALE WHO WAS ADMITTED DUE TO HYPERTENSIVE EMERGENCY AND ACUTE CORONARY SYNDROME PT HAS H/O CVA W/L-SIDED WEAKNESS, COPD, HTN, CHF, KIDNEY DZ, FIBROMYALGIA, PER CXR: BORDERLINE CARDIOMEGALY. NO ACUTE PROCESS. MRI IS PENDING. PT RESIDES IN A INTERMEDIATE HOME. CURRENT STATUS: PT SEEN AT BEDSIDE IN AM. ALERT, COOPERATIVE, ORIENTED, ABLE TO FOLLOW DIRECTIONS. PT DENIED ANY SWALLOWING DIFFICULTY. SPEECH AND VOICE IS CLEAR. GIVEN PO TRIALS: THIN(CUP), PUREE(TSP) AND CRACKER. INITIAL IMPRESSION: POSSIBLE MILD OROPHARYNGEAL DYSPHAGIA FACIAL PARESIS ON THE L-SIDED. GOOD DENTITION, GOOD MASTICATION TIME, SLOW BUT FUNCTIONAL LINGUAL MOVEMENT AND STRENGTH GOOD ORAL TRANSIT TIME, MILDLY REDUCED LARYNGEAL ELEVATION, NO OVERT S/S OF ASPIRATION. PENDING MRI TO R/O ANY NEW CVA. RECOMMENDATIONS: 1. CONTINUE REGULAR WITH THIN LIQUID DIET. 2. ASPIRATION PRECAUTIONS. 3. MEAL OBSERVATION. 4. CONSIDER MODIFIED BARIUM SWALLOW STUDY IF NEEDED(PENDING MRI). D/W PT AND DAVID CONNOLLY
--- NOTE | 2018-09-27 10:20 | NUR ---
CASE MANAGEMENT:REVIEW 09/27/18 SI: R/O CVA. CHEST PAIN. HTN URGENCY 98.5 58 20 160/85 97% ON RA H/H-11.6/34.9 IS: COZAAR PO BID NORVASC PO QD HYDRALAZINE PO Q4HRS PRN : TELEMETRY STATUS DCP: HOMELESS PLAN: MRI BRAIN VENOUS DUPLEX
--- NOTE | 2018-09-27 10:26 | NUR ---
MRI BRAIN COMPLETED
--- NOTE | 2018-09-27 11:38 | Diagnostic Imaging Report ---
Indication: Left hemiparesis, chronic headaches Technique: sagittal T1 fast spin echo, axial T1 FLAIR, axial T2 FLAIR, axial T2 FS PROPELLER, axial T2* GRE, axial diffusion weighted images. ADC and exponential ADC maps generated Comparison: none Findings: There is an area of susceptibility artifact in the right lateral basal ganglia region also demonstrating peripheral low T1 and T2 signal, central sliver of high T2 signal, likely residual from an old intraparenchymal hemorrhage. No abnormal areas of restricted diffusion to suggest acute infarction. No acute hemorrhage or edema. There is periventricular high T2 signal which is asymmetric, greater on the right than on the left. Areas of low T2 FLAIR signal within this may reflect old tiny lacunar infarcts or prominent perivascular spaces. One or more tiny lacunar infarcts are also seen in the left basal ganglia No mass effect nor midline shift. There is mild prominence to the ventricles and extra-axial CSF spaces. The vascular flow voids are preserved. Visualized orbits and sinuses are unremarkable. Impression: Evidence of old microhemorrhage or hemorrhagic infarct in the right basal ganglia Negative for acute intracranial bleed, mass effect, or infarct Mild age-related volume loss Asymmetric periventricular high T2 signal, right greater than left. Most likely on the basis of chronic deep white matter ischemic changes, but the possibility of demyelinating disease should also be considered Old right periventricular deep white matter and left basal ganglia lacunar infarcts.
--- NOTE | 2018-09-27 14:17 | Nephrology Progress Note ---
Assessment/Plan Problem List: (1) Hypertensive emergency (2) Bradycardia Assessment: likely medication related (3) Obese Assessment HTN OOC- Obese- COPD CP . r/o Cardiac ischemia Plan BP management watch HR UA check labs per orders Subjective ROS Limited/Unobtainable: No Constitutional: Reports: malaise Objective Objective Last 24 Hour Vital Signs Date Time Temp Pulse Resp B/P (MAP) Pulse Ox O2 Delivery O2 Flow Rate FiO2 09/27/18 11:08 59 162/85 09/27/18 09:00 160/85 09/27/18 09:00 59 160/85 09/27/18 09:00 Room Air 09/27/18 08:00 98.5 58 20 160/85 (110) 97 09/27/18 08:00 65 09/27/18 04:00 96.6 59 18 152/80 (104) 96 09/27/18 04:00 58 09/27/18 01:40 170/89 09/27/18 00:00 59 09/27/18 00:00 97.8 67 18 170/89 (116) 95 09/26/18 21:00 Room Air 09/26/18 20:00 98.7 64 18 127/59 (81) 97 09/26/18 20:00 55 09/26/18 16:00 98.7 52 18 185/94 (124) 96 09/26/18 15:34 48 09/26/18 14:45 68 163/88 Intake and Output 09/26/18 09/27/18 19:00 07:00 Intake Total 620 ml Output Total 1400 ml 600 ml Balance -780 ml -600 ml Intake Oral 620 ml Output Urine Total 1400 ml 600 ml Laboratory Tests 09/26/18 17:30: Urine Color Pale yellow, Urine Appearance Clear, Urine pH 8, Urine Specific [place] 1.010, Urine Protein Negative, Urine Glucose (UA) Negative, Urine Ketones Negative, Urine Blood Negative, Urine Nitrite Negative, Urine Bilirubin Negative, Urine Urobilinogen Normal, Urine Leukocyte Esterase Negative, Urine RBC 0, Urine WBC 0, Urine Squamous Epithelial Cells Few, Urine Bacteria ModerateH 09/27/18 04:50: White Blood Count 4.2L, Red Blood Count 3.79L, Hemoglobin 11.6L, Hematocrit 34.9L, Mean Corpuscular Volume 92, Mean Corpuscular Hemoglobin 30.7, Mean Corpuscular Hemoglobin Concent 33.3, Red Cell Distribution Width 13.1, Platelet Count 165, Mean Platelet Volume 10.0, Neutrophils (%) (Auto) 51.0, Lymphocytes ( %) (Auto) 34.4, Monocytes (%) (Auto) 8.4, Eosinophils (%) (Auto) 5.4H, Basophils (%) (Auto) 0.8, Sodium Level 141, Potassium Level 4.2, Chloride Level 107, Carbon Dioxide Level 28, Anion Gap 6, Blood Urea Nitrogen 24H, Creatinine 1.3, Estimat Glomerular Filtration Rate 49.7, Glucose Level 99, Hemoglobin A1c 5.3, Uric Acid 3.7, Calcium Level 8.5, Phosphorus Level 3.8, Magnesium Level 2.0 , Total Bilirubin 0.4, Gamma Glutamyl Transpeptidase 20, Aspartate Amino Transf (AST/SGOT) 12L, Alanine Aminotransferase (ALT/SGPT) 19, Alkaline Phosphatase 69 , C-Reactive Protein, Quantitative < 0.4, Pro-B-Type Natriuretic Peptide 226H, Total Protein 6.0L, Albumin 2.9L, Globulin 3.1, Albumin/Globulin Ratio 0.9L, Triglycerides Level 58, Cholesterol Level 184, LDL Cholesterol 126H, HDL Cholesterol 45, Cholesterol/HDL Ratio 4.1, Thyroid Stimulating Hormone (TSH) 0.962 Height (Feet): 5 Height (Inches): 9.00 Weight (Pounds): 242 General Appearance: no apparent distress Cardiovascular: bradycardia Respiratory/Chest: decreased breath sounds Abdomen: soft Gary Pratt MD Sep 27, 2018 14:17
--- NOTE | 2018-09-27 14:32 | NUR ---
*-* INSURANCE *-* ALL CLINICALS AND REVIEWS HAVE BEEN FAXED TO: [employer] NO WHIRLEY OPERATOR ASSIGNED AT THIS TIME PLEASE FAX THE REVIEW/CLINICAL P- [phone] F- [phone]......REVIEW & CLINICALS
[2018-09-27] MEDS: Tylenol #3 tab (300mg/30mg) ORAL PRN (16:51)
--- NOTE | 2018-09-27 17:13 | Neurology Progress Note ---
Interim History Interim History ROS Limited/Unobtainable: No Complaints: Paresthesia/ Weakness Interim History This visit was performed on September 27, [address] bruce Hernandez. Review of Systems Neuro Review of Systems Stable, alert and oriented - ambulating with prior residual weakness. Objective Physical Exam Last Vital Signs Date Time Temp Pulse Resp B/P (MAP) Pulse Ox O2 Delivery O2 Flow Rate FiO2 09/27/18 16:00 98.1 58 18 155/85 (108) 96 09/27/18 09:00 Room Air Laboratory Tests Test 09/26/18 17:30 09/27/18 04:50 Urine Color Pale yellow Urine Appearance Clear Urine pH 8 (4.5-8.0) Urine Specific [place] 1.010 (1.005-1.035) Urine Protein Negative (NEGATIVE) Urine Glucose (UA) Negative (NEGATIVE) Urine Ketones Negative (NEGATIVE) Urine Blood Negative (NEGATIVE) Urine Nitrite Negative (NEGATIVE) Urine Bilirubin Negative (NEGATIVE) Urine Urobilinogen Normal MG/DL (0.0-1.0) Urine Leukocyte Esterase Negative (NEGATIVE) Urine RBC 0 /HPF (0 - 2) Urine WBC 0 /HPF (0 - 2) Urine Squamous Epithelial Cells Few /LPF (NONE/OCC) Urine Bacteria Moderate /HPF (NONE) H White Blood Count 4.2 K/UL (4.8-10.8) L Red Blood Count 3.79 M/UL (4.20-5.40) L Hemoglobin 11.6 G/DL (12.0-16.0) L Hematocrit 34.9 % (37.0-47.0) L Mean Corpuscular Volume 92 FL (80-99) Mean Corpuscular Hemoglobin 30.7 PG (27.0-31.0) Mean Corpuscular Hemoglobin Concent 33.3 G/DL (32.0-36.0) Red Cell Distribution Width 13.1 % (11.6-14.8) Platelet Count 165 K/UL (150-450) Mean Platelet Volume 10.0 FL (6.5-10.1) Neutrophils (%) (Auto) 51.0 % (45.0-75.0) Lymphocytes (%) (Auto) 34.4 % (20.0-45.0) Monocytes (%) (Auto) 8.4 % (1.0-10.0) Eosinophils (%) (Auto) 5.4 % (0.0-3.0) H Basophils (%) (Auto) 0.8 % (0.0-2.0) Sodium Level 141 MMOL/L (136-145) Potassium Level 4.2 MMOL/L (3.5-5.1) Chloride Level 107 MMOL/L (98-107) Carbon Dioxide Level 28 MMOL/L (21-32) Anion Gap 6 mmol/L (5-15) Blood Urea Nitrogen 24 mg/dL (7-18) H Creatinine 1.3 MG/DL (0.55-1.30) Estimat Glomerular Filtration Rate 49.7 mL/min (>60) Glucose Level 99 MG/DL (74-106) Hemoglobin A1c 5.3 % (4.3-6.0) Uric Acid 3.7 MG/DL (2.6-7.2) Calcium Level 8.5 MG/DL (8.5-10.1) Phosphorus Level 3.8 MG/DL (2.5-4.9) Magnesium Level 2.0 MG/DL (1.8-2.4) Total Bilirubin 0.4 MG/DL (0.2-1.0) Gamma Glutamyl Transpeptidase 20 U/L (5-85) Aspartate Amino Transf (AST/SGOT) 12 U/L (15-37) L Alanine Aminotransferase (ALT/SGPT) 19 U/L (12-78) Alkaline Phosphatase 69 U/L (46-116) C-Reactive Protein, Quantitative < 0.4 mg/dL (0.00-0.90) Pro-B-Type Natriuretic Peptide 226 pg/mL (0-125) H Total Protein 6.0 G/DL (6.4-8.2) L Albumin 2.9 G/DL (3.4-5.0) L Globulin 3.1 g/dL Albumin/Globulin Ratio 0.9 (1.0-2.7) L Triglycerides Level 58 MG/DL (30-150) Cholesterol Level 184 MG/DL (< 200) LDL Cholesterol 126 mg/dL (<100) H HDL Cholesterol 45 MG/DL (40-60) Cholesterol/HDL Ratio 4.1 (3.3-4.4) Thyroid Stimulating Hormone (TSH) 0.962 uiU/mL (0.358-3.740) General: well developed, well nourished Head: normocophalic Neck: no rigidity EENT: benign Neurologic Exam Mental Status: awake, alert, oriented x4, normal cognition, good mathematical skills, normal recent memory, normal remote memory, preserved visuospatial function Speech: normal speech, no dysarthia Language: normal language, no aphasia Cranial Nerve II: fundus normal, visual dumont, no papilledema Cranial Nerves III, IV, : PERRLA, EOMI, pupils Cranial Nerve V: normal facial sensations, temporales function normal, masseters function normal, pterygoids function normal Cranial Nerve VII: no facial asymmetry, normal facial expressions Cranial Nerve VIII: normal hearing, no nystagmus Cranial Nerve IX: normal palate elevation, gag response Cranial Nerve X: no voice hoarseness Cranial Nerve XI: SCM symmetric, trapezii function normal Cranial Nerve XII: tongue midline, no tongue atrophy/fasciculations Motor System: normal muscle tone, no involuntary movement, no muscle wasting, other Sensory: normal position sense, normal graphesthesia Coordination: normal finger to nose bilaterally, normal heel to rubio bilaterally, negative Romberg test Deep Tendon Reflexes: 2+ bicep (L), 2+ bicep (R), 2+ tricep (L), 2+ tricep (R) , 2+ brachioradialis (L), 2+ brachioradialis (R), 2+ knee (L), 2+ knee (R), 2+ ankle (L), 2+ ankle (R) Stance: normal Gait: stable, normal regular, heel + toe gait Imaging [facility] [address] [facility] [address] [phone], fax [phone] Catracho Vazquez M.D. Natural Resources Manager Patient : ELEONORA SALAZAR Referring Physician: Sahara Robin N.P. ID Number: [id number] Service Date: 09/27/18 : 1950 Report Date: 09/27/18 Gender: F Accession No.: [id number] Location: Procedure: MRI Brain no Contrast Indication: Left hemiparesis, chronic headaches Technique: sagittal T1 fast spin echo, axial T1 FLAIR, axial T2 FLAIR, axial T2 FS PROPELLER, axial T2* GRE, axial diffusion weighted images. ADC and exponential ADC maps generated Comparison: none Findings: There is an area of susceptibility artifact in the right lateral basal ganglia region also demonstrating peripheral low T1 and T2 signal, central sliver of high T2 signal, likely residual from an old intraparenchymal hemorrhage. No abnormal areas of restricted diffusion to suggest acute infarction. No acute hemorrhage or edema. There is periventricular high T2 signal which is asymmetric, greater on the right than on the left. Areas of low T2 FLAIR signal within this may reflect old tiny lacunar infarcts or prominent perivascular spaces. One or more tiny lacunar infarcts are also seen in the left basal ganglia No mass effect nor midline shift. There is mild prominence to the ventricles and extra-axial CSF spaces. The vascular flow voids are preserved. Visualized orbits and sinuses are unremarkable. Impression: Evidence of old microhemorrhage or hemorrhagic infarct in the right basal ganglia Negative for acute intracranial bleed, mass effect, or infarct Mild age-related volume loss Asymmetric periventricular high T2 signal, right greater than left. Most likely on the basis of chronic deep white matter ischemic changes, but the possibility of demyelinating disease should also be considered Old right periventricular deep white matter and left basal ganglia lacunar infarcts. Dictated By: Jasmeet Parry MD Electronically Signed By: Jasmeet Parry MD Signed Date/Time 09/27/18 1133 CC: Sahara Robin N.P. Impression/Recommendations Problems: (1) ACS (acute coronary syndrome) (2) Hypertensive emergency (3) Fibromyalgia (4) CHF (congestive heart failure) (5) ESRD (end stage renal disease) (6) History of CVA with residual deficit Status: stable Recommendations Likely recrudescence of prior stroke symptoms Carotid Doppler Pending/ Venous leg study MRI negative for new acute infarct/ hemorrhage Maintain SBP< 140 Na 135-145 Q4 neuro obs Sahara Robin N.P. Sep 27, 2018 17:13
--- NOTE | 2018-09-27 19:50 | Cardiology Progress Note ---
Assessment/Plan Assessment/Plan The patient is seen and examined, full consult note will be dictated shortly. Objective Last 24 Hour Vital Signs Date Time Temp Pulse Resp B/P (MAP) Pulse Ox O2 Delivery O2 Flow Rate FiO2 09/27/18 17:38 155/85 09/27/18 16:00 61 09/27/18 16:00 98.1 58 18 155/85 (108) 96 09/27/18 12:00 66 09/27/18 12:00 98.1 57 20 158/81 (106) 97 09/27/18 11:08 59 162/85 09/27/18 09:00 160/85 09/27/18 09:00 59 160/85 09/27/18 09:00 Room Air 09/27/18 08:00 98.5 58 20 160/85 (110) 97 09/27/18 08:00 65 09/27/18 04:00 96.6 59 18 152/80 (104) 96 09/27/18 04:00 58 09/27/18 01:40 170/89 09/27/18 00:00 59 09/27/18 00:00 97.8 67 18 170/89 (116) 95 09/26/18 21:00 Room Air 09/26/18 20:00 98.7 64 18 127/59 (81) 97 09/26/18 20:00 55 Intake and Output 09/26/18 09/27/18 18:59 06:59 Intake Total 620 ml Output Total 1400 ml 600 ml Balance -780 ml -600 ml Intake Oral 620 ml Output Urine Total 1400 ml 600 ml Laboratory Tests Test 09/27/18 04:50 White Blood Count 4.2 K/UL (4.8-10.8) L Red Blood Count 3.79 M/UL (4.20-5.40) L Hemoglobin 11.6 G/DL (12.0-16.0) L Hematocrit 34.9 % (37.0-47.0) L Mean Corpuscular Volume 92 FL (80-99) Mean Corpuscular Hemoglobin 30.7 PG (27.0-31.0) Mean Corpuscular Hemoglobin Concent 33.3 G/DL (32.0-36.0) Red Cell Distribution Width 13.1 % (11.6-14.8) Platelet Count 165 K/UL (150-450) Mean Platelet Volume 10.0 FL (6.5-10.1) Neutrophils (%) (Auto) 51.0 % (45.0-75.0) Lymphocytes (%) (Auto) 34.4 % (20.0-45.0) Monocytes (%) (Auto) 8.4 % (1.0-10.0) Eosinophils (%) (Auto) 5.4 % (0.0-3.0) H Basophils (%) (Auto) 0.8 % (0.0-2.0) Sodium Level 141 MMOL/L (136-145) Potassium Level 4.2 MMOL/L (3.5-5.1) Chloride Level 107 MMOL/L (98-107) Carbon Dioxide Level 28 MMOL/L (21-32) Anion Gap 6 mmol/L (5-15) Blood Urea Nitrogen 24 mg/dL (7-18) H Creatinine 1.3 MG/DL (0.55-1.30) Estimat Glomerular Filtration Rate 49.7 mL/min (>60) Glucose Level 99 MG/DL (74-106) Hemoglobin A1c 5.3 % (4.3-6.0) Uric Acid 3.7 MG/DL (2.6-7.2) Calcium Level 8.5 MG/DL (8.5-10.1) Phosphorus Level 3.8 MG/DL (2.5-4.9) Magnesium Level 2.0 MG/DL (1.8-2.4) Total Bilirubin 0.4 MG/DL (0.2-1.0) Gamma Glutamyl Transpeptidase 20 U/L (5-85) Aspartate Amino Transf (AST/SGOT) 12 U/L (15-37) L Alanine Aminotransferase (ALT/SGPT) 19 U/L (12-78) Alkaline Phosphatase 69 U/L (46-116) C-Reactive Protein, Quantitative < 0.4 mg/dL (0.00-0.90) Pro-B-Type Natriuretic Peptide 226 pg/mL (0-125) H Total Protein 6.0 G/DL (6.4-8.2) L Albumin 2.9 G/DL (3.4-5.0) L Globulin 3.1 g/dL Albumin/Globulin Ratio 0.9 (1.0-2.7) L Triglycerides Level 58 MG/DL (30-150) Cholesterol Level 184 MG/DL (< 200) LDL Cholesterol 126 mg/dL (<100) H HDL Cholesterol 45 MG/DL (40-60) Cholesterol/HDL Ratio 4.1 (3.3-4.4) Thyroid Stimulating Hormone (TSH) 0.962 uiU/mL (0.358-3.740) Microbiology Date/Time Source Procedure Growth Status 09/26/18 17:30 Urine,Clean Catch Urine Culture - Preliminary Gram Negative Bacillus 1 Resulted 09/25/18 22:10 Rectum Received Trino Gomez MD Sep 27, 2018 19:50
--- NOTE | 2018-09-27 20:09 | NUR ---
HAND-OFF: Report given to CATHLEEN Lenz. Patient in stable condition. Watching TV.
--- NOTE | 2018-09-27 20:14 | NUR ---
NURSE NOTES: Received patient from Benjamin CONNOLLY. Patient in bed on room air, no signs of respiratory distress. Edema on BLE. Bed in low position, locked, call light within reach.
[2018-09-27] MEDS: Atorvastatin 20mg tab ORAL SCH (21:00)
--- NOTE | 2018-09-27 21:15 | Consultation ---
DATE OF CONSULTATION: 09/27/2018 CARDIOLOGY CONSULTATION CONSULTING PHYSICIAN: Trino Gomez M.D. REFERRING PHYSICIAN: Lu Membreno M.D. REASON FOR CONSULTATION: Management of chest pain. HISTORY OF PRESENT ILLNESS: The patient is a very unfortunate 68-year-old female, who presents to the hospital with complaints of " I was having stroke" when she started to become weak in both lower extremities and sweaty with associated headache. The patient apparently reported different symptoms to the ER doctor and complained of chest pain. She told me that day she is hurting all over her body. At the time of arrival to this facility, blood pressure was 209/112 mmHg and pulse of 60. A 12-lead electrocardiogram was significant for sinus bradycardia, rate of 56 with left ventricular hypertrophy, as well as left atrial enlargement, but no acute ischemic changes. Initial laboratory in the emergency department showed presence of creatinine of 1.3, normal troponin I level at 0.005 and slight beta natriuretic peptide elevation at 169. Chest x-ray revealed no acute cardiopulmonary disease. The patient was admitted to telemetry for further evaluation and management of chest pain. PAST MEDICAL HISTORY: Includes: 1. Chronic kidney disease. 2. Congestive heart failure. 3. Autoimmune disease. 4. COPD. ALLERGIES: Gluten, aspirin, iodine, penicillin, shellfish, and sulfa. PAST SURGICAL HISTORY: None. REVIEW OF SYSTEMS: A 12-system review done essentially negative except what was mentioned in history of present illness. MEDICATIONS: List of medications at home included losartan 25 mg p.o. daily and multivitamin one tablet daily. SOCIAL HISTORY: Denies any tobacco, alcohol, or illicit drug use. PHYSICAL EXAMINATION: VITAL SIGNS: Blood pressure was 209/112 pulse of 60, respiratory rate 18, temperature 98.2 degrees Fahrenheit, and O2 saturation 99% on room air. GENERAL: The patient is a very unfortunate 68-year-old female, obese in no apparent respiratory distress. HEENT: Atraumatic and normocephalic. Anicteric. Pupils are equal, round, and reactive to light and accommodation. Extraocular muscles intact. NECK: JVP less than 5 cm. No carotid bruit. Carotid upstroke is 2+ bilaterally. CVS: Normal S1 and S2. Regular rate and rhythm. No murmurs, gallops, or rubs. PMI is at fourth intercostal space in the midclavicular line. LUNGS: Clear to auscultation bilaterally. ABDOMEN: Soft, nontender, and nondistended. No hepatosplenomegaly. Positive bowel sounds. EXTREMITIES: No evidence of edema, clubbing, or cyanosis. LABORATORY FINDINGS: Chemistry showed sodium 140, potassium 4.0, chloride 103, bicarbonate 30, BUN 19, creatinine 1.3, glucose 110, calcium 9.9, and troponin I 0.005. BNP was 169. LDL 126, HDL 45, triglycerides 58, and total cholesterol was 184. CBC showed WBC 7.1, hemoglobin 13.5, hematocrit 40.9, and platelet count 217. ASSESSMENT AND PLAN: The patient is a very unfortunate 68-year-old female, seen in Cardiology consultation. 1. According to the history that I obtained from the patient chest pain is considered to be noncardiac, first troponin I is negative. I will obtain another troponin I level to ultimately rule out acute myocardial infarction. A 2D echocardiography does not show any ischemia. We will obtain 2D echocardiography for assessment of LV systolic function. Further therapeutic and diagnostic decision will be based on results of this test. 2. Accelerated hypertension. The patient requires to be on two antihypertensive medication, lifestyle modification. 3. Sinus bradycardia most likely secondary to narcotic use. The patient showed opiate in the urine toxicology screen and drug urine test. 4. Morbid obesity. 5. History of autoimmune disease per history. I would like to thank, , for the courtesy of this consultation. Trino Gomez M.D. DR: Jasmin JOB#: [id number] CC:
--- NOTE | 2018-09-27 22:03 | General Progress Note ---
Assessment/Plan Problem List: (1) Fibromyalgia ICD Codes: M79.7 - Fibromyalgia SNOMED: 890474993 (2) History of CVA with residual deficit ICD Codes: I69.30 - Unspecified sequelae of cerebral infarction SNOMED: 341294983 (3) Bradycardia ICD Codes: R00.1 - Bradycardia, unspecified SNOMED: 83708631 (4) Obese ICD Codes: E66.9 - Obesity, unspecified SNOMED: 342578701, 510422129 (5) ACS (acute coronary syndrome) ICD Codes: I24.9 - Acute ischemic heart disease, unspecified SNOMED: 948929312 (6) Hypertensive emergency ICD Codes: I16.1 - Hypertensive emergency SNOMED: 840998068640084 Status: progressing Assessment/Plan: r/o cva has residual deficit from previous cva htn urgency bp is improving not dizzy afebrile Subjective ROS Limited/Unobtainable: Yes Allergies: Coded Allergies: GLUTEN (Verified Allergy, Intermediate, 09/25/18) report Nut Tree (Verified Allergy, Intermediate, 09/25/18) breaks out in rash ASPIRIN (Verified Allergy, Unknown, 09/25/18) IODINE (Verified Allergy, Unknown, 09/25/18) PENICILLINS (Verified Allergy, Unknown, 09/25/18) SHELLFISH DERIVED (Verified Allergy, Unknown, 09/25/18) SULFA (SULFONAMIDE ANTIBIOTICS) (Verified Allergy, Unknown, 09/25/18) Objective Last 24 Hour Vital Signs Date Time Temp Pulse Resp B/P (MAP) Pulse Ox O2 Delivery O2 Flow Rate FiO2 09/27/18 21:15 61 150/81 09/27/18 20:00 98.2 61 20 150/81 (104) 96 09/27/18 17:38 155/85 09/27/18 16:00 61 09/27/18 16:00 98.1 58 18 155/85 (108) 96 09/27/18 12:00 66 09/27/18 12:00 98.1 57 20 158/81 (106) 97 09/27/18 11:08 59 162/85 09/27/18 09:00 160/85 09/27/18 09:00 59 160/85 09/27/18 09:00 Room Air 09/27/18 08:00 98.5 58 20 160/85 (110) 97 09/27/18 08:00 65 09/27/18 04:00 96.6 59 18 152/80 (104) 96 09/27/18 04:00 58 09/27/18 01:40 170/89 09/27/18 00:00 59 09/27/18 00:00 97.8 67 18 170/89 (116) 95 Intake and Output 09/26/18 09/27/18 18:59 06:59 Intake Total 620 ml Output Total 1400 ml 600 ml Balance -780 ml -600 ml Intake Oral 620 ml Output Urine Total 1400 ml 600 ml Laboratory Tests 09/27/18 04:50: White Blood Count 4.2L, Red Blood Count 3.79L, Hemoglobin 11.6L, Hematocrit 34.9L, Mean Corpuscular Volume 92, Mean Corpuscular Hemoglobin 30.7, Mean Corpuscular Hemoglobin Concent 33.3, Red Cell Distribution Width 13.1, Platelet Count 165, Mean Platelet Volume 10.0, Neutrophils (%) (Auto) 51.0, Lymphocytes ( %) (Auto) 34.4, Monocytes (%) (Auto) 8.4, Eosinophils (%) (Auto) 5.4H, Basophils (%) (Auto) 0.8, Sodium Level 141, Potassium Level 4.2, Chloride Level 107, Carbon Dioxide Level 28, Anion Gap 6, Blood Urea Nitrogen 24H, Creatinine 1.3, Estimat Glomerular Filtration Rate 49.7, Glucose Level 99, Hemoglobin A1c 5.3, Uric Acid 3.7, Calcium Level 8.5, Phosphorus Level 3.8, Magnesium Level 2.0 , Total Bilirubin 0.4, Gamma Glutamyl Transpeptidase 20, Aspartate Amino Transf (AST/SGOT) 12L, Alanine Aminotransferase (ALT/SGPT) 19, Alkaline Phosphatase 69 , C-Reactive Protein, Quantitative < 0.4, Pro-B-Type Natriuretic Peptide 226H, Total Protein 6.0L, Albumin 2.9L, Globulin 3.1, Albumin/Globulin Ratio 0.9L, Triglycerides Level 58, Cholesterol Level 184, LDL Cholesterol 126H, HDL Cholesterol 45, Cholesterol/HDL Ratio 4.1, Thyroid Stimulating Hormone (TSH) 0.962 Height (Feet): 5 Height (Inches): 9.00 Weight (Pounds): 242 Cardiovascular: normal rate Respiratory/Chest: lungs clear Abdomen: soft Lu Membreno MD Sep 27, 2018 22:03
[2018-09-28] VITALS (7 sets, daily range): BP systolic 152–175; BP diastolic 78–100
[2018-09-28] MEDS: HydrALAZINE 25mg tab ORAL PRN ×2 (03:59→20:29)
--- NOTE | 2018-09-28 07:34 | NUR ---
HAND-OFF: Report given to Mignon RN. Patient in stable condition. Plan of care endorsed.
--- NOTE | 2018-09-28 07:35 | NUR ---
NURSE NOTES: Received report from Delfin/RN, Patient is awake and alert, Eating breakfast on bed, No acute distress at this time. Denies any pain. IV on right AC, patent, no bleeding or infiltration. Bed in low position and locked. Call light within reach. Will continue plan of care.
[2018-09-28] MEDS: Hyzaar 12.5mg/50mg tab ORAL SCH (08:58)
--- NOTE | 2018-09-28 09:00 | General Progress Note ---
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 D/w Dr. Crane and he concurred. Subjective Date patient seen: Sep 28, 2018 Time patient seen: 08:45 - am Allergies: Coded Allergies: GLUTEN (Verified Allergy, Intermediate, 09/25/18) report Nut Tree (Verified Allergy, Intermediate, 09/25/18) breaks out in rash ASPIRIN (Verified Allergy, Unknown, 09/25/18) IODINE (Verified Allergy, Unknown, 09/25/18) PENICILLINS (Verified Allergy, Unknown, 09/25/18) SHELLFISH DERIVED (Verified Allergy, Unknown, 09/25/18) SULFA (SULFONAMIDE ANTIBIOTICS) (Verified Allergy, Unknown, 09/25/18) Subjective REVIEW OF SYSTEMS: Denies rash, fever, chills, sweating, dizziness, drowsiness, blurred vision, sore throat, change in hearing or weight. No nausea, vomiting, or blood in the stool or urine. No bowel or bladder incontinence. No dysuria. She is complaining of generalized body pain. SUBJECTIVE: Patient shows no signs of pain or distress. Her pain is unchanged and has used one dose of Tylenol #3 in the last 24hrs. No new complaints at this time. Objective Last 24 Hour Vital Signs Date Time Temp Pulse Resp B/P (MAP) Pulse Ox O2 Delivery O2 Flow Rate FiO2 09/28/18 08:00 98.5 59 20 152/81 (104) 99 09/28/18 06:21 63 160/92 (114) 09/28/18 03:59 173/100 09/28/18 03:57 51 09/28/18 03:32 98.3 55 20 173/100 (124) 98 09/27/18 23:59 61 09/27/18 23:45 99.2 58 20 153/87 (109) 93 09/27/18 21:15 61 150/81 09/27/18 21:00 Room Air 09/27/18 20:00 98.2 61 20 150/81 (104) 96 09/27/18 19:08 61 09/27/18 17:38 155/85 09/27/18 16:00 61 09/27/18 16:00 98.1 58 18 155/85 (108) 96 09/27/18 12:00 66 09/27/18 12:00 98.1 57 20 158/81 (106) 97 09/27/18 11:08 59 162/85 09/27/18 09:00 160/85 09/27/18 09:00 59 160/85 09/27/18 09:00 Room Air Intake and Output 09/27/18 09/28/18 18:59 06:59 Intake Total 400 ml Balance 400 ml Intake Oral 400 ml # Voids 3 Height (Feet): 5 Height (Inches): 9.00 Weight (Pounds): 242 Objective GENERAL: Alert, awake, oriented. LUNGS: Decreased breath sounds bilaterally. HEART: S1 S2 Regular. ABDOMEN: Obese. EXTREMITIES: No cyanosis. No clubbing. Edema noted. NEURO: No changes. Shlomo Bates Sep 28, 2018 09:00
--- NOTE | 2018-09-28 09:09 | NUR ---
P.T NOTE: P.T EVALUATION COMPLETED AND TREATMENT INITIATED. PLEASE REFER TO P.T EVALUATION FOR CURRENT FUNCTIONAL STATUS. IS ALERT, O X 4 , PLEASANT AND COOPERATIVE DESPITE C/O GENERALIZED WEAKNESS AND BODY PAIN PARTICULARLY THE L ANKLE AGGRAVATED BY WB 5-10/10. PATIENT CURRENTLY REQUIRE CGA X AND EXTENDED TIME FOR BED MOBILITY, TRANSFERS AND GAIT/AMBULATION ACTIVITIES USING THE [facility]. OVERALL FAIR ACTIVITY TOLERANCE. SKILLED P.T SERVICE IS WARRANTED TO IMPROVE HER STRENGTH AND ACTIVITY TOLERANCE TO INCREASE MOBILITY INDEPENDENCE AND SAFETY. MAY BENEFIT FROM SNF AT [place]. PATIENT IS CLEARED FOR OOB ACTIVITIES WITH FWW WITH NURSING.
--- NOTE | 2018-09-28 10:48 | NUR ---
*-* INSURANCE *-* UPDATED CLINICALS HAVE BEEN FAXED GISELLEE/NINA NO ACADEMIC COACH ASSIGNED AT THIS TIME PLEASE FAX THE REVIEW/CLINICAL P- [phone] F- [phone]......REVIEW & CLINICALS
--- NOTE | 2018-09-28 15:16 | NUR ---
CASE MANAGEMENT:REVIEW 09/28/18 SI: ACS. HYPERTENSIVE EMERGENCY BRADYCARDIA 98.3 59 20 175/83 99% ON RA IS: NORVASC PO BID HYZAAR PO QD LIPITOR PO QHS : TELEMETRY STATUS
--- NOTE | 2018-09-28 15:17 | Cardiology Progress Note ---
Assessment/Plan Assessment/Plan 1. Non-cardiac chest pain, 12 lead ECG does not show any ischemia. Echo shows normal LVEF with no wall motion abnormalities. 2. Accelerated hypertension. Continue amlodipine and Hyzaar. 3. Sinus bradycardia most likely secondary to narcotic use. The patient showed opiate in the urine toxicology screen and drug urine test. 4. Morbid obesity. 5. History of autoimmune disease per history. Subjective Subjective Sinus bradycardia at rate of 59. Objective Last 24 Hour Vital Signs Date Time Temp Pulse Resp B/P (MAP) Pulse Ox O2 Delivery O2 Flow Rate FiO2 09/28/18 12:00 98.3 59 20 175/83 (113) 99 09/28/18 09:00 Room Air 09/28/18 08:58 152/81 09/28/18 08:58 59 152/81 09/28/18 08:00 98.5 59 20 152/81 (104) 99 09/28/18 08:00 79 09/28/18 06:21 63 160/92 (114) 09/28/18 03:59 173/100 09/28/18 03:57 51 09/28/18 03:32 98.3 55 20 173/100 (124) 98 09/27/18 23:59 61 09/27/18 23:45 99.2 58 20 153/87 (109) 93 09/27/18 21:15 61 150/81 09/27/18 21:00 Room Air 09/27/18 20:00 98.2 61 20 150/81 (104) 96 09/27/18 19:08 61 09/27/18 17:38 155/85 09/27/18 16:00 61 09/27/18 16:00 98.1 58 18 155/85 (108) 96 Intake and Output 09/27/18 09/28/18 19:00 07:00 Intake Total 400 ml 120 ml Balance 400 ml 120 ml Intake Oral 400 ml 120 ml # Voids 3 2D Echo: LVEF 55%, Grade I LVDD, Mild MR Microbiology Date/Time Source Procedure Growth Status 09/25/18 22:10 Nasal Nares MRSA Culture - Final NO METHICILLIN RESISTANT STAPH AUREUS... Complete 09/26/18 17:30 Urine,Clean Catch Urine Culture - Final Proteus Mirabilis Complete 09/25/18 22:10 Rectum - Final NO CARBAPENEM-RESISTANT ENTEROBACTERI... Complete 09/25/18 22:10 Rectum VRE Culture - Final NO VANCOMYCIN RESISTANT ENTEROCOCCUS ... Complete Objective HEENT: Atraumatic and normocephalic. Anicteric. Pupils are equal, round, and reactive to light and accommodation. Extraocular muscles intact. NECK: JVP less than 5 cm. No carotid bruit. Carotid upstroke is 2+ bilaterally. CVS: Normal S1 and S2. Regular rate and rhythm. No murmurs, gallops, or rubs. PMI is at fourth intercostal space in the midclavicular line. LUNGS: Clear to auscultation bilaterally. ABDOMEN: Soft, nontender, and nondistended. No hepatosplenomegaly. Positive bowel sounds. EXTREMITIES: No evidence of edema, clubbing, or cyanosis. Trino Gomez MD Sep 28, 2018 15:17
--- NOTE | 2018-09-28 15:29 | Nephrology Progress Note ---
Assessment/Plan Problem List: (1) Hypertensive emergency (2) Bradycardia Assessment: likely medication related (3) Obese Assessment HTN OOC- Obese- COPD CP . r/o Cardiac ischemia Plan BP management watch HR UA check labs per orders Subjective ROS Limited/Unobtainable: No Objective Objective Last 24 Hour Vital Signs Date Time Temp Pulse Resp B/P (MAP) Pulse Ox O2 Delivery O2 Flow Rate FiO2 09/28/18 12:00 98.3 59 20 175/83 (113) 99 09/28/18 09:00 Room Air 09/28/18 08:58 152/81 09/28/18 08:58 59 152/81 09/28/18 08:00 98.5 59 20 152/81 (104) 99 09/28/18 08:00 79 09/28/18 06:21 63 160/92 (114) 09/28/18 03:59 173/100 09/28/18 03:57 51 09/28/18 03:32 98.3 55 20 173/100 (124) 98 09/27/18 23:59 61 09/27/18 23:45 99.2 58 20 153/87 (109) 93 09/27/18 21:15 61 150/81 09/27/18 21:00 Room Air 09/27/18 20:00 98.2 61 20 150/81 (104) 96 09/27/18 19:08 61 09/27/18 17:38 155/85 09/27/18 16:00 61 09/27/18 16:00 98.1 58 18 155/85 (108) 96 Intake and Output 09/27/18 09/28/18 19:00 07:00 Intake Total 400 ml 120 ml Balance 400 ml 120 ml Intake Oral 400 ml 120 ml # Voids 3 Current Medications Medications (Trade) Dose Ordered Sig/Clyde Route PRN Reason Start Time Stop Time Status Last Admin Dose Admin Acetaminophen (Tylenol) 650 mg Q4H PRN ORAL Mild Pain/Temp > 100.5 09/26/18 00:00 10/26/18 00:00 09/26/18 10:40 Acetaminophen/ Codeine Phosphate (Tylenol #3) 1 tab Q6H PRN ORAL Severe Pain (Pain Scale 7-10) 09/26/18 19:30 10/03/18 19:29 09/27/18 16:51 Amlodipine Besylate (Norvasc) 5 mg BID ORAL 09/28/18 18:00 10/27/18 20:14 Atorvastatin Calcium (Lipitor) 40 mg BEDTIME ORAL 09/27/18 21:00 10/27/18 20:59 HCTZ/Losartan Potassium (Hyzaar 50-12.5) 2 tab DAILY ORAL 09/28/18 09:00 10/28/18 08:59 09/28/18 08:58 Hydralazine HCl (Apresoline) 25 mg Q4H PRN ORAL bp over 160 syst 09/26/18 14:45 10/26/18 14:44 09/28/18 03:59 Ondansetron HCl (Zofran) 4 mg Q6H PRN IVP Nausea & Vomiting 09/26/18 01:00 10/26/18 00:59 Height (Feet): 5 Height (Inches): 9.00 Weight (Pounds): 242 General Appearance: no apparent distress Objective no change Gary Pratt MD Sep 28, 2018 15:29
--- NOTE | 2018-09-28 18:17 | Neurology Progress Note ---
Interim History Interim History ROS Limited/Unobtainable: No Complaints: Paresthesia/ Weakness Events: Ambulatory, improved symptoms overall Interim History This visit was performed on September 28, [address] Ish Hernandez Objective Physical Exam Last Vital Signs Date Time Temp Pulse Resp B/P (MAP) Pulse Ox O2 Delivery O2 Flow Rate FiO2 09/28/18 16:00 98.3 62 19 154/86 (108) 94 09/28/18 09:00 Room Air General: well developed, well nourished Head: normocophalic Neck: no rigidity EENT: benign Neurologic Exam Mental Status: awake, alert, oriented x4, normal cognition, good mathematical skills, normal recent memory, normal remote memory, preserved visuospatial function Speech: normal speech, no dysarthia Language: normal language, no aphasia Cranial Nerve II: fundus normal, visual dumont, no papilledema Cranial Nerves III, IV, : PERRLA, EOMI, pupils Cranial Nerve V: normal facial sensations, temporales function normal, masseters function normal, pterygoids function normal Cranial Nerve VII: no facial asymmetry, normal facial expressions Cranial Nerve VIII: normal hearing, no nystagmus Cranial Nerve IX: normal palate elevation, gag response Cranial Nerve X: no voice hoarseness Cranial Nerve XI: SCM symmetric, trapezii function normal Cranial Nerve XII: tongue midline, no tongue atrophy/fasciculations Motor System: normal muscle tone, no involuntary movement, no muscle wasting, other Sensory: normal position sense, normal graphesthesia Coordination: normal finger to nose bilaterally, normal heel to rubio bilaterally, negative Romberg test Deep Tendon Reflexes: 2+ bicep (L), 2+ bicep (R), 2+ tricep (L), 2+ tricep (R) , 2+ brachioradialis (L), 2+ brachioradialis (R), 2+ knee (L), 2+ knee (R), 2+ ankle (L), 2+ ankle (R) Stance: normal Gait: stable, normal regular, heel + toe gait Impression/Recommendations Problems: (1) ACS (acute coronary syndrome) (2) Hypertensive emergency (3) Fibromyalgia (4) CHF (congestive heart failure) (5) ESRD (end stage renal disease) (6) History of CVA with residual deficit Status: stable Recommendations Likely recrudescence of prior stroke symptoms Continue Atorvastatin 40mg Qd on D/C Carotid Doppler Pending/ Venous leg study - Negative MRI negative for new acute infarct/ hemorrhage Maintain SBP< 140 Na 135-145 Q4 neuro obs Clear for discharge from a neurological perspective . Sahara Robin N.P. Sep 28, 2018 18:17
--- NOTE | 2018-09-28 19:28 | NUR ---
HAND-OFF: Report given to Delfin/RN, Patient is resting comfortably, No acute distress/SOB noted. Endorsed plan of care.
--- NOTE | 2018-09-28 19:30 | NUR ---
NURSE NOTES: Received patient from Mignon RN. Patient in bed, awake and oriented x4, on room air, no signs of respiratory distress. Bed locked, in low position, bed alarm on, call light within reach. Patient calm and cooperative.
[2018-09-28] MEDS: Atorvastatin 20mg tab ORAL SCH (21:00)
--- NOTE | 2018-09-28 21:46 | General Progress Note ---
Assessment/Plan Problem List: (1) Fibromyalgia ICD Codes: M79.7 - Fibromyalgia SNOMED: 060502159 (2) History of CVA with residual deficit ICD Codes: I69.30 - Unspecified sequelae of cerebral infarction SNOMED: 832176924 (3) Bradycardia ICD Codes: R00.1 - Bradycardia, unspecified SNOMED: 20949647 (4) Obese ICD Codes: E66.9 - Obesity, unspecified SNOMED: 660556316, 907364211 (5) ACS (acute coronary syndrome) ICD Codes: I24.9 - Acute ischemic heart disease, unspecified SNOMED: 340548693 (6) Hypertensive emergency ICD Codes: I16.1 - Hypertensive emergency SNOMED: 179864464149268 Status: stable Assessment/Plan: r/o cva has residual deficit from previous cva htn urgency bp is improving bradycardia improved chronic pain Subjective ROS Limited/Unobtainable: Yes Allergies: Coded Allergies: GLUTEN (Verified Allergy, Intermediate, 09/25/18) report Nut Tree (Verified Allergy, Intermediate, 09/25/18) breaks out in rash ASPIRIN (Verified Allergy, Unknown, 09/25/18) IODINE (Verified Allergy, Unknown, 09/25/18) PENICILLINS (Verified Allergy, Unknown, 09/25/18) SHELLFISH DERIVED (Verified Allergy, Unknown, 09/25/18) SULFA (SULFONAMIDE ANTIBIOTICS) (Verified Allergy, Unknown, 09/25/18) Objective Last 24 Hour Vital Signs Date Time Temp Pulse Resp B/P (MAP) Pulse Ox O2 Delivery O2 Flow Rate FiO2 09/28/18 20:29 166/88 09/28/18 20:00 98.3 62 20 166/88 (114) 97 09/28/18 18:29 60 154/86 09/28/18 16:00 98.3 62 19 154/86 (108) 94 09/28/18 16:00 60 09/28/18 12:00 98.3 59 20 175/83 (113) 99 09/28/18 12:00 63 09/28/18 09:00 Room Air 09/28/18 08:58 152/81 09/28/18 08:58 59 152/81 09/28/18 08:00 98.5 59 20 152/81 (104) 99 09/28/18 08:00 79 09/28/18 06:21 63 160/92 (114) 09/28/18 03:59 173/100 09/28/18 03:57 51 09/28/18 03:32 98.3 55 20 173/100 (124) 98 09/27/18 23:59 61 09/27/18 23:45 99.2 58 20 153/87 (109) 93 Intake and Output 09/27/18 09/28/18 18:59 06:59 Intake Total 400 ml Balance 400 ml Intake Oral 400 ml # Voids 3 Height (Feet): 5 Height (Inches): 9.00 Weight (Pounds): 242 Cardiovascular: normal rate Respiratory/Chest: lungs clear Abdomen: soft Lu Membreno MD Sep 28, 2018 21:46
[2018-09-29 04:00] VITALS: BP 150/71
--- NOTE | 2018-09-29 07:44 | NUR ---
HAND-OFF: Report given to Fani CONNOLLY. Patient in stable condition, plan of care endorsed.
[2018-09-29 08:00] VITALS: BP_SYST 140; BP_SYST 148; BP_DIAS 66; BP_DIAS 87
[2018-09-29] MEDS: Hyzaar 12.5mg/50mg tab ORAL SCH (09:00)
--- NOTE | 2018-09-29 09:33 | Diagnostic Imaging Report ---
APPROVED REPORT CPT Code: 12874 Present Symptoms Comments: Pain Technically difficult to visualize due to body habitus. BILATERAL: Imaging reveals a patent deep venous system bilaterally. There is no evidence of thrombus within the common femoral, superficial femoral, popliteal or tibial segments. The greater saphenous veins are within normal limits. Doppler indicates normal spontaneous flow within these segments.
--- NOTE | 2018-09-29 10:35 | Nephrology Progress Note ---
Assessment/Plan Problem List: (1) Hypertensive emergency (2) Bradycardia Assessment: likely medication related (3) Obese Assessment HTN OOC- Obese- COPD CP . r/o Cardiac ischemia Plan BP management watch HR UA check labs per orders Subjective ROS Limited/Unobtainable: No Objective Objective Last 24 Hour Vital Signs Date Time Temp Pulse Resp B/P (MAP) Pulse Ox O2 Delivery O2 Flow Rate FiO2 09/29/18 09:32 65 148/87 09/29/18 09:00 148/87 09/29/18 08:21 Room Air 09/29/18 08:00 98.2 65 18 148/87 (107) 96 09/29/18 04:00 97.7 60 20 150/71 (97) 98 09/29/18 03:59 53 09/28/18 23:48 98.4 65 20 153/78 (103) 98 09/28/18 23:33 54 09/28/18 21:00 Room Air 09/28/18 20:29 166/88 09/28/18 20:00 98.3 62 20 166/88 (114) 97 09/28/18 19:56 57 09/28/18 18:29 60 154/86 09/28/18 16:00 98.3 62 19 154/86 (108) 94 09/28/18 16:00 60 09/28/18 12:00 98.3 59 20 175/83 (113) 99 09/28/18 12:00 63 Intake and Output 09/28/18 09/29/18 19:00 07:00 Intake Total 280 ml Balance 280 ml Intake Oral 280 ml # Voids 3 3 Height (Feet): 5 Height (Inches): 9.00 Weight (Pounds): 242 General Appearance: no apparent distress Cardiovascular: normal rate - rate improved Objective no change Gary Pratt MD Sep 29, 2018 10:35
--- NOTE | 2018-09-29 10:44 | NUR ---
NURSE NOTES: received patient A/A/Ox4, in bed. able to make needs known. no acute cardio/resp distress noted. bed is in lowest position. siderails are up x3. call light is within reach. will cont to monitor.
[2018-09-29 12:00] VITALS: BP 157/91
[2018-09-29 15:52] VITALS: BP 147/89
--- NOTE | 2018-09-29 18:57 | NUR ---
HAND-OFF: Report given to
--- NOTE | 2018-09-29 19:15 | NUR ---
NURSE NOTES: Received patient from day shift nurse. Patient in bed, awake x4, calm and cooperative. Bed in low position, locked, bed alarm on. Call light within reach. On room air, no s/s of respiratory distress.
[2018-09-29 20:00] VITALS: BP 146/93
[2018-09-29] MEDS: Tylenol #3 tab (300mg/30mg) ORAL PRN (20:11)
--- NOTE | 2018-09-29 20:12 | NUR ---
NURSE NOTES: Administered Tylenol #3 1 tab for pain 10/10, generalized. Patient states it hurts all over, legs, neck, back, headache.
[2018-09-29] MEDS: Atorvastatin 20mg tab ORAL SCH (21:00)
--- NOTE | 2018-09-29 21:26 | General Progress Note ---
Assessment/Plan Problem List: (1) Fibromyalgia ICD Codes: M79.7 - Fibromyalgia SNOMED: 037310746 (2) History of CVA with residual deficit ICD Codes: I69.30 - Unspecified sequelae of cerebral infarction SNOMED: 578108150 (3) Bradycardia ICD Codes: R00.1 - Bradycardia, unspecified SNOMED: 49774068 (4) Obese ICD Codes: E66.9 - Obesity, unspecified SNOMED: 443295946, 032403207 (5) ACS (acute coronary syndrome) ICD Codes: I24.9 - Acute ischemic heart disease, unspecified SNOMED: 442318459 (6) Hypertensive emergency ICD Codes: I16.1 - Hypertensive emergency SNOMED: 828603964373891 Status: stable, progressing Assessment/Plan: r/o cva reviewed chart and labs htn urgency bp is improving bradycardia improved chronic pain Subjective ROS Limited/Unobtainable: Yes Allergies: Coded Allergies: GLUTEN (Verified Allergy, Intermediate, 09/25/18) report Nut Tree (Verified Allergy, Intermediate, 09/25/18) breaks out in rash ASPIRIN (Verified Allergy, Unknown, 09/25/18) IODINE (Verified Allergy, Unknown, 09/25/18) PENICILLINS (Verified Allergy, Unknown, 09/25/18) SHELLFISH DERIVED (Verified Allergy, Unknown, 09/25/18) SULFA (SULFONAMIDE ANTIBIOTICS) (Verified Allergy, Unknown, 09/25/18) Objective Last 24 Hour Vital Signs Date Time Temp Pulse Resp B/P (MAP) Pulse Ox O2 Delivery O2 Flow Rate FiO2 09/29/18 20:00 98.3 73 18 146/93 (110) 96 09/29/18 17:10 61 147/89 09/29/18 15:52 98.3 61 16 147/89 (108) 98 09/29/18 12:00 67 09/29/18 12:00 98.0 80 17 157/91 (113) 97 09/29/18 09:32 65 148/87 09/29/18 09:00 148/87 09/29/18 08:21 Room Air 09/29/18 08:00 98.2 65 18 148/87 (107) 96 09/29/18 08:00 56 09/29/18 04:00 97.7 60 20 150/71 (97) 98 6/15/19 03:59 53 09/28/18 23:48 98.4 65 20 153/78 (103) 98 09/28/18 23:33 54 Intake and Output 09/28/18 09/29/18 18:59 06:59 Intake Total 400 ml Balance 400 ml Intake Oral 400 ml # Voids 3 3 Height (Feet): 5 Height (Inches): 9.00 Weight (Pounds): 242 Neck: supple Cardiovascular: normal rate Respiratory/Chest: lungs clear Abdomen: soft Lu Membreno MD Sep 29, 2018 21:26
--- NOTE | 2018-09-29 23:36 | Neurology Progress Note ---
Interim History Interim History ROS Limited/Unobtainable: Yes Complaints: Paresthesia/ Weakness Events: Ambulatory, improved symptoms overall Objective Physical Exam Last Vital Signs Date Time Temp Pulse Resp B/P (MAP) Pulse Ox O2 Delivery O2 Flow Rate FiO2 09/29/18 20:00 98.3 73 18 146/93 (110) 96 09/29/18 08:21 Room Air General: well developed, well nourished Head: normocophalic Neck: no rigidity EENT: benign Neurologic Exam Mental Status: awake, alert, oriented x4, normal cognition, good mathematical skills, normal recent memory, normal remote memory, preserved visuospatial function Speech: normal speech, no dysarthia Language: normal language, no aphasia Cranial Nerve II: fundus normal, visual dumont, no papilledema Cranial Nerves III, IV, : PERRLA, EOMI, pupils Cranial Nerve V: normal facial sensations, temporales function normal, masseters function normal, pterygoids function normal Cranial Nerve VII: no facial asymmetry, normal facial expressions Cranial Nerve VIII: normal hearing, no nystagmus Cranial Nerve IX: normal palate elevation, gag response Cranial Nerve X: no voice hoarseness Cranial Nerve XI: SCM symmetric, trapezii function normal Cranial Nerve XII: tongue midline, no tongue atrophy/fasciculations Motor System: normal muscle tone, no involuntary movement, no muscle wasting, other Sensory: normal position sense, normal graphesthesia Coordination: normal finger to nose bilaterally, normal heel to rubio bilaterally, negative Romberg test Deep Tendon Reflexes: 2+ bicep (L), 2+ bicep (R), 2+ tricep (L), 2+ tricep (R) , 2+ brachioradialis (L), 2+ brachioradialis (R), 2+ knee (L), 2+ knee (R), 2+ ankle (L), 2+ ankle (R) Stance: normal Gait: stable, normal regular, heel + toe gait Impression/Recommendations Problems: (1) ACS (acute coronary syndrome) (2) Hypertensive emergency (3) Fibromyalgia (4) CHF (congestive heart failure) (5) ESRD (end stage renal disease) (6) History of CVA with residual deficit Status: stable, progressing Recommendations Likely recrudescence of prior stroke symptoms Continue Atorvastatin 40mg Qd on D/C Carotid Doppler Pending/ Venous leg study - Negative MRI negative for new acute infarct/ hemorrhage Maintain SBP< 140 Na 135-145 Q4 neuro obs Clear for discharge from a neurological perspective . Sahara Robin N.P. Sep 29, 2018 23:36
[2018-09-29 23:56] VITALS: BP 142/87
[2018-09-30 04:00] VITALS: BP 131/79
--- NOTE | 2018-09-30 07:15 | NUR ---
NURSE NOTES: having breakfast with HOB elevated. A/A/Ox4. No acute resp distress noted. IV access patent and intact. bed is in lowest position. siderails are up x2. ambulates to the bathroom with assistance. keep bed alarm and locked when in bed @ all times. will cont to monitor.
[2018-09-30 07:17] LABS: BASOPHILS % (AUTO) 1.2 % (0.0-2.0); EOSINOPHILS % (AUTO) 5.4 % (0.0-3.0); HEMATOCRIT 40.8 % (37.0-47.0); HEMOGLOBIN 13.4 G/DL (12.0-16.0); LYMPHOCYTES % (AUTO) 36.1 % (20.0-45.0); MEAN CORPUSCULAR VOLUME 92 FL (80-99); MONOCYTES % (AUTO) 10.1 % (1.0-10.0); NEUTROPHILS % (AUTO) 47.3 % (45.0-75.0); PLATELET COUNT 204 K/UL (150-450); RED BLOOD COUNT 4.42 M/UL (4.20-5.40); RED CELL DISTRIBUTION WIDTH 13.4 % (11.6-14.8); WHITE BLOOD COUNT 4.7 K/UL (4.8-10.8)
--- NOTE | 2018-09-30 07:20 | NUR ---
HAND-OFF: Report given to dayshift nurse. Plan of care endorsed.
[2018-09-30 07:53] LABS: ALANINE AMINOTRANSFERASE 22 U/L (12-78); ALBUMIN 3.3 G/DL (3.4-5.0); ALBUMIN/GLOBULIN RATIO 0.9 (1.0-2.7); ALKALINE PHOSPHATASE 78 U/L (46-116); ANION GAP 7 mmol/L (5-15); ASPARTATE AMINO TRANSFERASE 13 U/L (15-37); BILIRUBIN,TOTAL 0.6 MG/DL (0.2-1.0); BLOOD UREA NITROGEN 26 mg/dL (7-18); CALCIUM 9.1 MG/DL (8.5-10.1); CARBON DIOXIDE 28 MMOL/L (21-32); CHLORIDE 104 MMOL/L (98-107); CREATININE 1.2 MG/DL (0.55-1.30); PHOSPHORUS 3.4 MG/DL (2.5-4.9); POTASSIUM 4.1 MMOL/L (3.5-5.1); SODIUM 139 MMOL/L (136-145)
[2018-09-30 08:00] VITALS: BP 139/79
[2018-09-30] MEDS ORDERED: Hyzaar 12.5mg/50mg tab ORAL SCH (09:00)
[2018-09-30 11:59] VITALS: BP 141/89
--- NOTE | 2018-09-30 12:01 | Nephrology Progress Note ---
Assessment/Plan Problem List: (1) Hypertensive emergency (2) Bradycardia Assessment: likely medication related (3) Obese Assessment STABLE_ HTN OOC- Obese- COPD CP . r/o Cardiac ischemia Plan BP management watch HR UA check labs per orders med-surg Subjective ROS Limited/Unobtainable: No Objective Objective Last 24 Hour Vital Signs Date Time Temp Pulse Resp B/P (MAP) Pulse Ox O2 Delivery O2 Flow Rate FiO2 09/30/18 09:00 Room Air 09/30/18 08:57 71 139/79 09/30/18 08:00 98.1 71 21 139/79 (99) 95 09/30/18 04:00 60 09/30/18 04:00 98.2 64 18 131/79 (96) 96 09/30/18 00:54 65 09/29/18 23:56 97.6 62 18 142/87 (105) 96 09/29/18 21:00 Room Air 09/29/18 20:00 98.3 73 18 146/93 (110) 96 09/29/18 19:51 64 09/29/18 17:10 61 147/89 09/29/18 15:52 98.3 61 16 147/89 (108) 98 09/29/18 15:45 58 Intake and Output 09/29/18 09/30/18 19:00 07:00 Intake Total 2000 ml 120 ml Balance 2000 ml 120 ml Intake Oral 2000 ml Other 120 ml # Voids 3 2 # Bowel Movements 1 Laboratory Tests 09/30/18 05:55: White Blood Count 4.7L, Red Blood Count 4.42, Hemoglobin 13.4, Hematocrit 40.8, Mean Corpuscular Volume 92, Mean Corpuscular Hemoglobin 30.3, Mean Corpuscular Hemoglobin Concent 32.9, Red Cell Distribution Width 13.4, Platelet Count 204, Mean Platelet Volume 11.3H, Neutrophils (%) (Auto) 47.3, Lymphocytes (%) (Auto) 36.1, Monocytes (%) (Auto) 10.1H, Eosinophils (%) (Auto) 5.4H, Basophils (%) ( Auto) 1.2, Sodium Level 139, Potassium Level 4.1, Chloride Level 104, Carbon Dioxide Level 28, Anion Gap 7, Blood Urea Nitrogen 26H, Creatinine 1.2, Estimat Glomerular Filtration Rate 54.5, Glucose Level 100, Uric Acid 3.7, Calcium Level 9.1, Phosphorus Level 3.4, Magnesium Level 2.0, Total Bilirubin 0.6, Aspartate Amino Transf (AST/SGOT) 13L, Alanine Aminotransferase (ALT/SGPT) 22, Alkaline Phosphatase 78, C-Reactive Protein, Quantitative 0.6, Pro-B-Type Natriuretic Peptide 20, Total Protein 6.8, Albumin 3.3L, Globulin 3.5, Albumin/ Globulin Ratio 0.9L Height (Feet): 5 Height (Inches): 9.00 Weight (Pounds): 242 General Appearance: no apparent distress Cardiovascular: normal rate Respiratory/Chest: decreased breath sounds Abdomen: soft Objective no change Gary Pratt MD Sep 30, 2018 12:01
--- NOTE | 2018-09-30 14:01 | General Progress Note ---
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 D/w Dr. Crane and he concurred. Subjective Date patient seen: Sep 30, 2018 Time patient seen: 14:00 Allergies: Coded Allergies: GLUTEN (Verified Allergy, Intermediate, 09/25/18) report Nut Tree (Verified Allergy, Intermediate, 09/25/18) breaks out in rash ASPIRIN (Verified Allergy, Unknown, 09/25/18) IODINE (Verified Allergy, Unknown, 09/25/18) PENICILLINS (Verified Allergy, Unknown, 09/25/18) SHELLFISH DERIVED (Verified Allergy, Unknown, 09/25/18) SULFA (SULFONAMIDE ANTIBIOTICS) (Verified Allergy, Unknown, 09/25/18) Subjective REVIEW OF SYSTEMS: Denies rash, fever, chills, sweating, dizziness, drowsiness, blurred vision, sore throat, change in hearing or weight. No nausea, vomiting, or blood in the stool or urine. No bowel or bladder incontinence. No dysuria. She is complaining of generalized body pain. SUBJECTIVE: Patient is in bed and reports pain is unchanged tolerated on the Tylenol #3. No new complaints at this time. Objective Last 24 Hour Vital Signs Date Time Temp Pulse Resp B/P (MAP) Pulse Ox O2 Delivery O2 Flow Rate FiO2 09/30/18 11:59 98.1 66 20 141/89 (106) 96 09/30/18 09:00 Room Air 09/30/18 08:57 71 139/79 09/30/18 08:00 98.1 71 21 139/79 (99) 95 09/30/18 04:00 60 09/30/18 04:00 98.2 64 18 131/79 (96) 96 09/30/18 00:54 65 09/29/18 23:56 97.6 62 18 142/87 (105) 96 09/29/18 21:00 Room Air 09/29/18 20:00 98.3 73 18 146/93 (110) 96 09/29/18 19:51 64 09/29/18 17:10 61 147/89 09/29/18 15:52 98.3 61 16 147/89 (108) 98 6/15/19 15:45 58 Intake and Output 09/29/18 09/30/18 19:00 07:00 Intake Total 2000 ml 120 ml Balance 2000 ml 120 ml Intake Oral 2000 ml Other 120 ml # Voids 3 2 # Bowel Movements 1 Laboratory Tests 09/30/18 05:55: White Blood Count 4.7L, Red Blood Count 4.42, Hemoglobin 13.4, Hematocrit 40.8, Mean Corpuscular Volume 92, Mean Corpuscular Hemoglobin 30.3, Mean Corpuscular Hemoglobin Concent 32.9, Red Cell Distribution Width 13.4, Platelet Count 204, Mean Platelet Volume 11.3H, Neutrophils (%) (Auto) 47.3, Lymphocytes (%) (Auto) 36.1, Monocytes (%) (Auto) 10.1H, Eosinophils (%) (Auto) 5.4H, Basophils (%) ( Auto) 1.2, Sodium Level 139, Potassium Level 4.1, Chloride Level 104, Carbon Dioxide Level 28, Anion Gap 7, Blood Urea Nitrogen 26H, Creatinine 1.2, Estimat Glomerular Filtration Rate 54.5, Glucose Level 100, Uric Acid 3.7, Calcium Level 9.1, Phosphorus Level 3.4, Magnesium Level 2.0, Total Bilirubin 0.6, Aspartate Amino Transf (AST/SGOT) 13L, Alanine Aminotransferase (ALT/SGPT) 22, Alkaline Phosphatase 78, C-Reactive Protein, Quantitative 0.6, Pro-B-Type Natriuretic Peptide 20, Total Protein 6.8, Albumin 3.3L, Globulin 3.5, Albumin/ Globulin Ratio 0.9L Height (Feet): 5 Height (Inches): 9.00 Weight (Pounds): 242 Objective GENERAL: Alert, awake, oriented. LUNGS: Decreased breath sounds bilaterally. HEART: S1 S2 Regular. ABDOMEN: Obese. EXTREMITIES: No cyanosis. No clubbing. Edema noted. NEURO: No changes. Shlomo Bates Sep 30, 2018 14:01
--- NOTE | 2018-09-30 15:37 | NUR ---
NURSE NOTES: Received report from Reshma YUNG, pt a/a/o x4 laying in bed with no signs of distress or other issues at this time. belongings check and signed with endorsed nurse. IV was removed by the pt on the way to be transfer. RN will start a new IV. RN will review order and will carry them out. I will f/u as needed.
--- NOTE | 2018-09-30 15:40 | NUR ---
NURSE NOTES: patient is in stable condition. personal belongings noted. skin is intact. patient removed her IV access and had explained the importance and significance. bed is in lowest position. siderails are up x3. bed alarm is on and locked. will cont to monitor.
[2018-09-30] MEDS ORDERED: HydrALAZINE 25mg tab ORAL PRN (15:52)
[2018-09-30] MEDS ORDERED: Tylenol #3 tab (300mg/30mg) ORAL PRN (15:52)
[2018-09-30 16:00] VITALS: BP 133/78
--- NOTE | 2018-09-30 18:44 | NUR ---
CASE MANAGEMENT:REVIEW 09/29/18 SI: ACS. HYPERTENSIVE EMERGENCY BRADYCARDIA T 98.3 HR 73 RR 18 B/P 146/93 SATS 96% ON RA NO LABS TODAY IS: NORVASC PO BID HYZAAR PO QD LIPITOR PO QHS : MED/SURG STATUS 09/30/18 SI: ACS. HYPERTENSIVE EMERGENCY BRADYCARDIA T 98.1 HR 71 RR 21 B/P 139/79 SATS 95% ON RA WBC 4.7 BUN 26 AST 13 IS: NORVASC PO BID HYZAAR PO QD LIPITOR PO QHS : MED/SURG STATUS
--- NOTE | 2018-09-30 19:30 | NUR ---
NURSE NOTES: Received report from CATHLEEN Capellan and rounds made. Received pt in bed, AOX4, denies any pain, no distress noted. Pt states she prefer a female nurse. Informed pt that ANATOLIY Montaño will assist her if she needs anything that she's not comfortable with a male nurse. Pt verbalized and acknowledge instruction. Bed in lowest position and locked. Side rails up x 2, call light within reach. Will continue to monitor.
--- NOTE | 2018-09-30 19:34 | NUR ---
HAND-OFF: Report given to Jonathan Leblanc pt in stable condition.
[2018-09-30 20:00] VITALS: BP 147/83
--- NOTE | 2018-09-30 20:30 | NUR ---
NURSE NOTES: Pt refused IV insertion, education given, pt verbalized understanding of teaching, ANATOLIY Montaño made aware.
[2018-09-30] MEDS ORDERED: Atorvastatin 20mg tab ORAL SCH (21:00)
--- NOTE | 2018-09-30 21:08 | NUR ---
Nurse's note: Refused IV insertion; education given; patient understood teaching; respected patient's wishes; informed Jonathan Rosales RN.
--- NOTE | 2018-09-30 22:02 | General Progress Note ---
Assessment/Plan Problem List: (1) Fibromyalgia ICD Codes: M79.7 - Fibromyalgia SNOMED: 674651822 (2) History of CVA with residual deficit ICD Codes: I69.30 - Unspecified sequelae of cerebral infarction SNOMED: 022989505 (3) Bradycardia ICD Codes: R00.1 - Bradycardia, unspecified SNOMED: 76457052 (4) Obese ICD Codes: E66.9 - Obesity, unspecified SNOMED: 222611527, 650280947 (5) ACS (acute coronary syndrome) ICD Codes: I24.9 - Acute ischemic heart disease, unspecified SNOMED: 804149203 (6) Hypertensive emergency ICD Codes: I16.1 - Hypertensive emergency SNOMED: 235393042720056 Status: stable, progressing Assessment/Plan: dc in am htn urgency is improved chronic pain bp is improving bradycardia improved chronic pain Subjective ROS Limited/Unobtainable: Yes Allergies: Coded Allergies: GLUTEN (Verified Allergy, Intermediate, 09/25/18) report Nut Tree (Verified Allergy, Intermediate, 09/25/18) breaks out in rash ASPIRIN (Verified Allergy, Unknown, 09/25/18) IODINE (Verified Allergy, Unknown, 09/25/18) PENICILLINS (Verified Allergy, Unknown, 09/25/18) SHELLFISH DERIVED (Verified Allergy, Unknown, 09/25/18) SULFA (SULFONAMIDE ANTIBIOTICS) (Verified Allergy, Unknown, 09/25/18) Objective Last 24 Hour Vital Signs Date Time Temp Pulse Resp B/P (MAP) Pulse Ox O2 Delivery O2 Flow Rate FiO2 09/30/18 20:00 97.9 66 17 147/83 (104) 97 09/30/18 17:26 72 133/78 09/30/18 16:00 98.4 72 18 133/78 (96) 96 09/30/18 11:59 98.1 66 20 141/89 (106) 96 09/30/18 09:00 Room Air 09/30/18 08:57 71 139/79 09/30/18 08:00 98.1 71 21 139/79 (99) 95 09/30/18 04:00 60 09/30/18 04:00 98.2 64 18 131/79 (96) 96 09/30/18 00:54 65 09/29/18 23:56 97.6 62 18 142/87 (105) 96 Intake and Output 09/29/18 09/30/18 19:00 07:00 Intake Total 2000 ml 120 ml Balance 2000 ml 120 ml Intake Oral 2000 ml Other 120 ml # Voids 3 2 # Bowel Movements 1 Laboratory Tests 09/30/18 05:55: White Blood Count 4.7L, Red Blood Count 4.42, Hemoglobin 13.4, Hematocrit 40.8, Mean Corpuscular Volume 92, Mean Corpuscular Hemoglobin 30.3, Mean Corpuscular Hemoglobin Concent 32.9, Red Cell Distribution Width 13.4, Platelet Count 204, Mean Platelet Volume 11.3H, Neutrophils (%) (Auto) 47.3, Lymphocytes (%) (Auto) 36.1, Monocytes (%) (Auto) 10.1H, Eosinophils (%) (Auto) 5.4H, Basophils (%) ( Auto) 1.2, Sodium Level 139, Potassium Level 4.1, Chloride Level 104, Carbon Dioxide Level 28, Anion Gap 7, Blood Urea Nitrogen 26H, Creatinine 1.2, Estimat Glomerular Filtration Rate 54.5, Glucose Level 100, Uric Acid 3.7, Calcium Level 9.1, Phosphorus Level 3.4, Magnesium Level 2.0, Total Bilirubin 0.6, Aspartate Amino Transf (AST/SGOT) 13L, Alanine Aminotransferase (ALT/SGPT) 22, Alkaline Phosphatase 78, C-Reactive Protein, Quantitative 0.6, Pro-B-Type Natriuretic Peptide 20, Total Protein 6.8, Albumin 3.3L, Globulin 3.5, Albumin/ Globulin Ratio 0.9L Height (Feet): 5 Height (Inches): 9.00 Weight (Pounds): 242 Neck: supple Cardiovascular: normal rate Respiratory/Chest: lungs clear Abdomen: soft Lu Membreno MD Sep 30, 2018 22:02
--- NOTE | 2018-10-01 | Neurology Progress Note ---
Interim History Interim History ROS Limited/Unobtainable: Yes Complaints: Paresthesia/ Weakness Events: Ambulatory, improved symptoms overall Objective Physical Exam Last Vital Signs Date Time Temp Pulse Resp B/P (MAP) Pulse Ox O2 Delivery O2 Flow Rate FiO2 09/30/18 21:00 Room Air 09/30/18 20:00 97.9 66 17 147/83 (104) 97 Laboratory Tests Test 09/30/18 05:55 White Blood Count 4.7 K/UL (4.8-10.8) L Red Blood Count 4.42 M/UL (4.20-5.40) Hemoglobin 13.4 G/DL (12.0-16.0) Hematocrit 40.8 % (37.0-47.0) Mean Corpuscular Volume 92 FL (80-99) Mean Corpuscular Hemoglobin 30.3 PG (27.0-31.0) Mean Corpuscular Hemoglobin Concent 32.9 G/DL (32.0-36.0) Red Cell Distribution Width 13.4 % (11.6-14.8) Platelet Count 204 K/UL (150-450) Mean Platelet Volume 11.3 FL (6.5-10.1) H Neutrophils (%) (Auto) 47.3 % (45.0-75.0) Lymphocytes (%) (Auto) 36.1 % (20.0-45.0) Monocytes (%) (Auto) 10.1 % (1.0-10.0) H Eosinophils (%) (Auto) 5.4 % (0.0-3.0) H Basophils (%) (Auto) 1.2 % (0.0-2.0) Sodium Level 139 MMOL/L (136-145) Potassium Level 4.1 MMOL/L (3.5-5.1) Chloride Level 104 MMOL/L (98-107) Carbon Dioxide Level 28 MMOL/L (21-32) Anion Gap 7 mmol/L (5-15) Blood Urea Nitrogen 26 mg/dL (7-18) H Creatinine 1.2 MG/DL (0.55-1.30) Estimat Glomerular Filtration Rate 54.5 mL/min (>60) Glucose Level 100 MG/DL (74-106) Uric Acid 3.7 MG/DL (2.6-7.2) Calcium Level 9.1 MG/DL (8.5-10.1) Phosphorus Level 3.4 MG/DL (2.5-4.9) Magnesium Level 2.0 MG/DL (1.8-2.4) Total Bilirubin 0.6 MG/DL (0.2-1.0) Aspartate Amino Transf (AST/SGOT) 13 U/L (15-37) L Alanine Aminotransferase (ALT/SGPT) 22 U/L (12-78) Alkaline Phosphatase 78 U/L (46-116) C-Reactive Protein, Quantitative 0.6 mg/dL (0.00-0.90) Pro-B-Type Natriuretic Peptide 20 pg/mL (0-125) Total Protein 6.8 G/DL (6.4-8.2) Albumin 3.3 G/DL (3.4-5.0) L Globulin 3.5 g/dL Albumin/Globulin Ratio 0.9 (1.0-2.7) L General: well developed, well nourished Head: normocophalic Neck: no rigidity EENT: benign Neurologic Exam Mental Status: awake, alert, oriented x4, normal cognition, good mathematical skills, normal recent memory, normal remote memory, preserved visuospatial function Speech: normal speech, no dysarthia Language: normal language, no aphasia Cranial Nerve II: fundus normal, visual dumont, no papilledema Cranial Nerves III, IV, : PERRLA, EOMI, pupils Cranial Nerve V: normal facial sensations, temporales function normal, masseters function normal, pterygoids function normal Cranial Nerve VII: no facial asymmetry, normal facial expressions Cranial Nerve VIII: normal hearing, no nystagmus Cranial Nerve IX: normal palate elevation, gag response Cranial Nerve X: no voice hoarseness Cranial Nerve XI: SCM symmetric, trapezii function normal Cranial Nerve XII: tongue midline, no tongue atrophy/fasciculations Motor System: normal muscle tone, no involuntary movement, no muscle wasting, other Sensory: normal position sense, normal graphesthesia Coordination: normal finger to nose bilaterally, normal heel to rubio bilaterally, negative Romberg test Deep Tendon Reflexes: 2+ bicep (L), 2+ bicep (R), 2+ tricep (L), 2+ tricep (R) , 2+ brachioradialis (L), 2+ brachioradialis (R), 2+ knee (L), 2+ knee (R), 2+ ankle (L), 2+ ankle (R) Stance: normal Gait: stable, normal regular, heel + toe gait Impression/Recommendations Problems: (1) ACS (acute coronary syndrome) (2) Hypertensive emergency (3) Fibromyalgia (4) CHF (congestive heart failure) (5) ESRD (end stage renal disease) (6) History of CVA with residual deficit Status: stable, progressing Recommendations Likely recrudescence of prior stroke symptoms Continue Atorvastatin 40mg Qd on D/C Carotid Doppler Pending/ Venous leg study - Negative MRI negative for new acute infarct/ hemorrhage Maintain SBP< 140 Na 135-145 Q4 neuro obs Clear for discharge from a neurological perspective . Sahara Robin N.P. Oct 01, 2018 00:00
[2018-10-01 06:09] VITALS: BP 151/91
--- NOTE | 2018-10-01 07:28 | NUR ---
NURSE NOTES:bedside rounds done.patient awake,a/ox4,room air,nad.will continue plan of care.
--- NOTE | 2018-10-01 07:36 | NUR ---
NURSE NOTES:bedside rounds done,awake,a/ox4,room air.no c/o pain.
--- NOTE | 2018-10-01 07:36 | NUR ---
HAND-OFF: Report given to CATHLEEN King. Pt in stable condition.
[2018-10-01 08:00] VITALS: BP 180/95
--- NOTE | 2018-10-01 08:38 | NUR ---
NURSE NOTES:schedule meds. given.c/o generalized pain(claims h/o sickle cell)refused for pain med when offered,including prn bp med.will continue plan of care.
[2018-10-01] MEDS ORDERED: Hyzaar 12.5mg/50mg tab ORAL SCH (09:00)
--- NOTE | 2018-10-01 09:51 | Cardiology Report ---
APPROVED REPORT EXAM: Two-dimensional and M-mode echocardiogram with Doppler and color Doppler. INDICATION Bradycardia M-Mode DIMENSIONS IVSd0.8 (0.7-1.1cm)Left Atrium (MM)3.5 (1.6-4.0cm) LVDd4.8 (3.5-5.6cm)Aortic Root3.0 (2.0-3.7cm) PWd1.0 (0.7-1.1cm)Aortic Cusp Exc.2.0 (1.5-2.0cm) LVDs3.6 (2.5-4.0cm) PWs1.4 cm Normal left ventricular chamber size, systolic function and wall motion. Left ventricular ejection fraction estimated to be 60 %. No evidence of left ventricular hypertrophy. No evidence of pericardial effusion. All other cardiac chamber sizes are within normal limits. Focal aortic valve sclerosis with adequate cusp excursion. Thickened mitral valve leaflets with normal excursion. Mitral annulus and aortic root calcification. Pulmonic valve not well visualized. Normal tricuspid valve structure. IVC is normal in size with physiological collapse. A color flow and spectral Doppler study was performed and revealed: Trace aortic regurgitation. Mild mitral regurgitation. Mitral diastolic velocities suggest mild left ventricular diastolic dysfunction (Grade I). Trace tricuspid regurgitation. Tricuspid systolic velocities suggests peak right ventricular systolic pressure of 12 mmHg. Mild pulmonic regurgitation present.
--- NOTE | 2018-10-01 10:08 | NUR ---
CASE MANAGEMENT:REVIEW 10/01/18 SI: ACS. HYPERTENSIVE EMERGENCY BRADYCARDIA 97.2 72 18 180/95 98% ON RA IS: PROCARDIA XL PO BID HYZAAR PO QD : MED/SURG STATUS 3 EAST DCP: RETURN TO RECUPERATIVE CARE
--- NOTE | 2018-10-01 10:43 | Nephrology Progress Note ---
Assessment/Plan Problem List: (1) Hypertensive emergency (2) Bradycardia Assessment: likely medication related (3) Obese Assessment STABLE_ HTN OOC- Obese- COPD CP . r/o Cardiac ischemia Plan DC planning? Perscription given to see PMD in next 3-5 days previously: BP management watch HR UA check labs Subjective ROS Limited/Unobtainable: No Objective Objective Last 24 Hour Vital Signs Date Time Temp Pulse Resp B/P (MAP) Pulse Ox O2 Delivery O2 Flow Rate FiO2 10/01/18 08:31 180/95 10/01/18 08:26 71 180/95 10/01/18 08:25 180/95 10/01/18 08:00 97.2 72 18 180/95 (123) 98 10/01/18 07:28 Room Air 10/01/18 06:09 98.0 67 19 151/91 (111) 97 09/30/18 21:00 Room Air 09/30/18 20:00 97.9 66 17 147/83 (104) 97 09/30/18 17:26 72 133/78 09/30/18 16:00 98.4 72 18 133/78 (96) 96 09/30/18 11:59 98.1 66 20 141/89 (106) 96 Intake and Output 09/30/18 10/01/18 19:00 07:00 Intake Total 240 ml 100 ml Balance 240 ml 100 ml Intake Oral 240 ml 100 ml # Voids 2 Current Medications Medications (Trade) Dose Ordered Sig/Clyde Route PRN Reason Start Time Stop Time Status Last Admin Dose Admin Acetaminophen (Tylenol) 650 mg Q4H PRN ORAL Mild Pain/Temp > 100.5 09/30/18 15:51 10/30/18 15:50 Acetaminophen/ Codeine Phosphate (Tylenol #3) 1 tab Q6H PRN ORAL Severe Pain (Pain Scale 7-10) 09/30/18 15:52 10/07/18 15:51 Atorvastatin Calcium (Lipitor) 40 mg BEDTIME ORAL 09/30/18 21:00 10/27/18 20:59 HCTZ/Losartan Potassium (Hyzaar 50-12.5) 2 tab DAILY ORAL 10/01/18 09:00 10/28/18 08:59 10/01/18 08:25 Hydralazine HCl (Apresoline) 25 mg Q4H PRN ORAL bp over 160 syst 6/16/19 15:52 10/30/18 15:51 Lidocaine (Xylocaine 5% cream) 1 applic TIDPRN PRN TOPIC CHRONIC PAIN 09/30/18 18:45 10/28/18 18:44 Nifedipine (Procardia XL) 60 mg BID ORAL 10/01/18 18:00 10/28/18 17:59 Ondansetron HCl (Zofran) 4 mg Q6H PRN IVP Nausea & Vomiting 09/30/18 15:52 10/30/18 15:51 Height (Feet): 5 Height (Inches): 9.00 Weight (Pounds): 242 General Appearance: no apparent distress Respiratory/Chest: lungs clear Abdomen: soft Objective no change Gary Pratt MD Oct 01, 2018 10:43
[2018-10-01] MEDS ORDERED: COZAAR50 MG ORAL (11:05)
[2018-10-01] MEDS ORDERED: PROCARDIA XL90 M4 ORAL (11:05)
[2018-10-01] MEDS ORDERED: HYDROCHLOROTH12.5 M2 ORAL (11:06)
--- NOTE | 2018-10-01 11:56 | NUR ---
*-* INSURANCE *-* UPDATED CLINICALS HAVE BEEN FAXED GISELLEE/NINA NO FIELD CONTACT PERSON ASSIGNED AT THIS TIME PLEASE FAX THE REVIEW/CLINICAL P- [phone] F- [phone]......REVIEW & CLINICALS
[2018-10-01 12:00] VITALS: BP 154/96
--- NOTE | 2018-10-01 12:54 | NUR ---
HOMELESS COORDINATOR HC spoke with Gabriel from [facility] and they will be accepting the patient back. Gabriel stated Patient can return anytime of the day. [phone] [place] [address]
[2018-10-01 16:00] VITALS: BP 121/69
--- NOTE | 2018-10-01 17:25 | NUR ---
NURSE NOTES:MESSAGE LEFT TO GABRIELLE YUNG([facility])RE:PATIENT TO BE DISCHARGE TODAY.
--- NOTE | 2018-10-01 17:35 | NUR ---
NURSE NOTES:D/C INSTRUCTIONS INCLUDING BELONGINGS,RX MEDS GIVEN AND VERBALIZED UNDERSTANDING.
--- NOTE | 2018-10-01 18:08 | General Progress Note ---
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 D/w Dr. Crane and he concurred. Subjective Date patient seen: Oct 01, 2018 Time patient seen: 18:07 Allergies: Coded Allergies: GLUTEN (Verified Allergy, Intermediate, 09/25/18) report Nut Tree (Verified Allergy, Intermediate, 09/25/18) breaks out in rash ASPIRIN (Verified Allergy, Unknown, 09/25/18) IODINE (Verified Allergy, Unknown, 09/25/18) PENICILLINS (Verified Allergy, Unknown, 09/25/18) SHELLFISH DERIVED (Verified Allergy, Unknown, 09/25/18) SULFA (SULFONAMIDE ANTIBIOTICS) (Verified Allergy, Unknown, 09/25/18) Subjective REVIEW OF SYSTEMS: Denies rash, fever, chills, sweating, dizziness, drowsiness, blurred vision, sore throat, change in hearing or weight. No nausea, vomiting, or blood in the stool or urine. No bowel or bladder incontinence. No dysuria. She is complaining of generalized body pain. SUBJECTIVE: Patient has no signs of pain or distress. Has no requested the Tylenol #3 in the last 24 hrs. Objective Last 24 Hour Vital Signs Date Time Temp Pulse Resp B/P (MAP) Pulse Ox O2 Delivery O2 Flow Rate FiO2 10/01/18 16:00 97.7 60 20 121/69 (86) 95 10/01/18 12:00 98.0 68 18 154/96 (115) 100 10/01/18 08:31 180/95 10/01/18 08:26 71 180/95 10/01/18 08:25 180/95 10/01/18 08:00 97.2 72 18 180/95 (123) 98 10/01/18 07:28 Room Air 10/01/18 06:09 98.0 67 19 151/91 (111) 97 09/30/18 21:00 Room Air 09/30/18 20:00 97.9 66 17 147/83 (104) 97 Intake and Output 09/30/18 10/01/18 19:00 07:00 Intake Total 240 ml 100 ml Balance 240 ml 100 ml Intake Oral 240 ml 100 ml # Voids 2 Height (Feet): 5 Height (Inches): 9.00 Weight (Pounds): 242 Objective GENERAL: Alert, awake, oriented. LUNGS: Decreased breath sounds bilaterally. HEART: S1 S2 Regular. ABDOMEN: Obese. EXTREMITIES: No cyanosis. No clubbing. Edema noted. NEURO: No changes. Shlomo Bates Oct 01, 2018 18:08
[2018-10-01 18:18] VITALS: BP 121/69
--- NOTE | 2018-10-01 18:30 | NUR ---
NURSE NOTES:d/c to pending sale to [facility] by cab.patient stable
--- NOTE | 2018-10-02 11:31 | NUR ---
*-* INSURANCE *-* UPDATED CLINICALS HAVE BEEN FAXED GISELLEE/NINA NO CAR WHACKER ASSIGNED AT THIS TIME PLEASE FAX THE REVIEW/CLINICAL P- [phone] F- [phone]......REVIEW & CLINICALS
--- NOTE | 2018-10-02 12:34 | Discharge Summary ---
Discharge Summary Discharge Summary _ DATE OF ADMISSION: 09/25/2018 DATE OF DISCHARGE: 10/01/2018 DISCHARGED BY: Dr. Jerez REASON FOR ADMISSION: 68 years old female with past medical history of hypertension, cerebrovascular accident, kidney disease, autoimmune disease , presented with chest pain and uncontrolled hypertension. Patient reported left-sided chest pain with radiation to left arm and shoulder. Patient reported not being compliant with taking all her medications. She denied headache. She denied nausea , vomiting or diarrhea. Patient reported chronic diffuse body pain, secondary to fibromyalgia . Patient received nitroglycerin , given by paramedics. Upon evaluation in the ED , patient had significantly elevated blood pressure. 209/112. Laboratory work-up revealed no leukocytosis , stable hemoglobin and hematocrit. Stable electrolytes. BUN 19, creatinine 1.3. Glucose 110. Stable LFT. Troponin- 0.005. Pro BNP 169. EKG revealed normal sinus rhythm, no acute ischemic changes. Chest x-ray demonstrated borderline cardiomegaly, no acute process. Urine toxicology screen was positive for opiates. Patient subsequently admitted for chest pain and hypertensive emergency. rule out acute coronary syndrome. CONSULTANTS: public address system installer Dr. Feldman neurologist Dr. Hernandez information clerk brokerage Dr. Pratt pain specialist Dr. Crane [facility] COURSE: Patient admitted to telemetry floor. Echocardiogram demonstrated preserved ejection fraction of 60% with no evidence of left ventricular hypertrophy. No evidence of wall motion abnormality. Right ventricular systolic pressure of 12. Lipid panel demonstrated elevated LDL 126 with normal total cholesterol 184, normal triglycerides 58 and HDL of 45. TSH was within normal limits. Per public address system installer , patient had a noncardiac chest pain. EKG showed no evidence of acute ischemia. Blood pressure was managed with multiple antihypertensive regimen, including nifedipine, hydralazine and Hyzaar. Blood pressure stabilized, and prior to discharge blood pressure 121/69. Heart rate in 60s. Sinus bradycardia was likely secondary to narcotic use, and resolved. Venous duplex bilateral lower extremity revealed no evidence of acute DVT, Supplemental oxygen was on board as needed to keep pulse oximetry above 90% along with nebulizing treatment. No signs of respiratory distress or COPD exacerbation. Neurologist followed. Patient undergone MRI of the brain , which revealed evidence of old microhemorrhage or hemorrhagic infarct in the right basal ganglia. MRI was negative for acute intracranial bleeding, mass-effect or infarct. Old right periventricular deep white matter and left basal ganglia infarcts. Patient was continued on statin. Neurologist recommended to maintain systolic blood pressure below 140 , sodium in the range 135-145. Neuro-checks were done every 4 hours. Patient had no evidence of new focal weakness. House Mother followed. Renal parameters and electrolytes were closely monitored, electrolytes corrected as needed , and nephrotoxins were avoided as possible. Pain management was addressed as per pain specialist recommendation. Pain was controlled. Supportive care provided. Bowel regimen instituted. Patient clinically stabilized and was ready for discharge home. 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 DISCHARGE INSTRUCTIONS: Patient was discharged home . Follow up with primary care provider in one week. I have been assigned to dictate discharge summary for this account. I was not involved in the patient's management. Kristina León NP Oct 02, 2018 12:34
== END 2018-10-01 18:40 | disposition home or self-care (01) | DRG 199 ==
LOC: EDBD 19:46 → EMR 20:53 → 2E 21:22 → EDBEDREQ 21:46 → 3E 09-30 15:31
DX: I16.1 Hypertensive emergency (principal); I69.854 Hemiplegia and hemiparesis following other cerebrovascular disease affecting left non-dominant side; E66.01 Morbid (severe) obesity due to excess calories; I50.9 Heart failure, unspecified; G89.0 Central pain syndrome; N18.6 End stage renal disease; J44.9 Chronic obstructive pulmonary disease, unspecified; R51 Headache; R07.89 Other chest pain; I13.2 Hypertensive heart and chronic kidney disease with heart failure and with stage 5 chronic kidney disease, or end stage renal disease; R00.1 Bradycardia, unspecified; Z88.6 Allergy status to analgesic agent; Z88.0 Allergy status to penicillin; M79.7 Fibromyalgia; M15.9 Polyosteoarthritis, unspecified; Z68.35 Body mass index [BMI] 35.0-35.9, adult; M35.9 Systemic involvement of connective tissue, unspecified; Z88.2 Allergy status to sulfonamides; Z88.8 Allergy status to other drugs, medicaments and biological substances; T40.605A Adverse effect of unspecified narcotics, initial encounter; R20.2 Paresthesia of skin
CPT/HCPCS: 36415; 70551; 71045; 80053; 80061; 80307; 81001; 82550; 82553; 82977; 83036; 83690; 83735; 83880; 84100; 84443; 84484; 84550; 85025; 86140; 87081; 87086; 87181; 93005; 93306; 93970; 96374; 96375; 99285; J2405

== ENCOUNTER 2020-02-02 01:40 | Inpatient (IN) | payer OTHER ==
[~2020-02-02] VITALS: Ht 172.7 cm; Wt 122.4 kg
[2020-02-02] VITALS (9 sets, daily range): BP systolic 134–219; BP diastolic 67–114
[~2020-02-02 01:40] MED LIST: COZAAR50 MG ORAL; HYDROCHLOROTH12.5 M2 ORAL; LOSARTAN POTASS25 MG ORAL; MULTIVITAMINS1 EA14 PO; PROCARDIA XL90 M4 ORAL
--- NOTE | 2020-02-02 01:40 | NUR ---
ED Nurse Note: Patient brought in by ambulance ra [id number] from [facility] with c/o generalized pain. States she has increased low back pain and bilateral leg weakness. Pain is 9/10. Patient stated she has increased difficulty walking and was able to normally walk with a cane before. Patient denies trauma or injury, Patient denies CP/SOB/, N&V, fever and chills. Patient placed on monitor bed. Patient AAOX4.
--- NOTE | 2020-02-02 01:41 | NUR ---
ED Nurse Note: ERMD at bedside
--- NOTE | 2020-02-02 01:57 | Emergency Room Report ---
History of Present Illness General Chief Complaint: Pain Source: Patient Present Illness HPI Patient is a 70-year-old female who presents for increased low back pain and bilateral leg weakness. Had prior history of CVA with residual left-sided deficit. Is currently staying at [facility]. Patient states that she had a chronic history of CHF as well as COPD. Additionally states she has colon cancer and fibromyalgia. Reports having pain to her back for approximately 1 week. States that she had been having increased difficulty with ambulation and normally is able to walk with a cane. Denies any recent trauma. Reports having chronic incontinence since her stroke. Allergies: Coded Allergies: GLUTEN (Verified Allergy, Intermediate, 09/25/18) report Nut Tree (Verified Allergy, Intermediate, 09/25/18) breaks out in rash ASPIRIN (Verified Allergy, Unknown, 09/25/18) IODINE (Verified Allergy, Unknown, 09/25/18) PENICILLINS (Verified Allergy, Unknown, 09/25/18) SHELLFISH DERIVED (Verified Allergy, Unknown, 09/25/18) SULFA (SULFONAMIDE ANTIBIOTICS) (Verified Allergy, Unknown, 09/25/18) Uncoded Allergies: IV CONTRAST (Allergy, Unknown, 02/02/20) PENICILLIN (Allergy, Unknown, 02/02/20) SULFA (Allergy, Unknown, 02/02/20) COVID-19 Screening Contact w/high risk pt: No Experienced COVID-19 symptoms?: No COVID-19 Testing performed FAMILY ADVOCATE: No Patient History Past Medical History: see triage record Now: No : 0 Para: 0 Reviewed Nursing Documentation: PMH: Agreed; PSxH: Agreed Nursing Documentation-PMH Hx Cardiac Problems: Yes - CHF, CKD, arthritis Hx Hypertension: Yes Hx COPD: Yes 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 Hx Neurological Problems: Yes Hx Cerebrovascular Accident: Yes - 2016 Hx Concentration Difficulty: Yes Hx Dizziness: Yes Hx Headaches: Yes Hx Numbness: Yes - peripheral neuropathy Hx Weakness: Yes Hx Fatigue: Yes Physical Exam Vital Signs Date Time Temp Pulse Resp B/P (MAP) Pulse Ox O2 Delivery O2 Flow Rate FiO2 02/02/20 01:33 98.2 76 20 219/113 (148) 100 Room Air Sp02 EP Interpretation: reviewed, normal General Appearance: normal inspection, no apparent distress, alert, GCS 15, obese, Chronically Ill Head: atraumatic ENT: normal ENT inspection, hearing grossly normal, normal voice Neck: normal inspection, full range of motion, supple, no bony tend Respiratory: normal inspection, lungs clear, normal breath sounds, no respiratory distress, no retraction, no wheezing Cardiovascular #1: regular rate, rhythm, edema - 2+ Gastrointestinal: normal inspection, normal bowel sounds, non tender, soft, no guarding, no hernia Genitourinary: no CVA tenderness Musculoskeletal: back normal, other - Left lower extremity with external rotation, upper extremity with normal strength Neurologic: alert, environmental adviser III-XII nml as tested, oriented x3, motor weakness - Left lower extremity, responsive, speech normal, normal inspection Psychiatric: normal inspection, judgement/insight normal, mood/affect normal Skin: no rash Medical Decision Making Diagnostic Impression: Primary Impression: Leg weakness Additional Impressions: Hypokalemia Hypertension CHF (congestive heart failure) ER Course Patient presented for low back pain. Differential diagnosis include was not limited to herniated disc, fibromyalgia, CVA, aortic aneurysm among others. Because of complexity of patient's case laboratory tests and imaging studies were ordered. Laboratory testing showed minimal elevation of the BNP as well as slight elevation of the patient's creatinine. Patient had prior history of CVA. CT imaging did not show any evidence of acute intracranial process. CT of lumbar spine showed multilevel degenerative changes without evident fracture. See radiology report for full details. Patient was given oral potassium. She w as started on IV Lasix as well as medications for blood pressure. Dr. Perez was contacted for inpatient management due to covering physician for [facility] group. Labs Test 02/02/20 01:45 White Blood Count 5.0 K/UL (4.8-10.8) Red Blood Count 4.27 M/UL (4.20-5.40) Hemoglobin 12.8 G/DL (12.0-16.0) Hematocrit 37.0 % (37.0-47.0) Mean Corpuscular Volume 87 FL (80-99) Mean Corpuscular Hemoglobin 29.9 PG (27.0-31.0) Mean Corpuscular Hemoglobin Concent 34.5 G/DL (32.0-36.0) Red Cell Distribution Width 12.6 % (11.6-14.8) Platelet Count 191 K/UL (150-450) Mean Platelet Volume 8.8 FL (6.5-10.1) Neutrophils (%) (Auto) 38.0 % (45.0-75.0) Lymphocytes (%) (Auto) 46.4 % (20.0-45.0) Monocytes (%) (Auto) 10.5 % (1.0-10.0) Eosinophils (%) (Auto) 3.6 % (0.0-3.0) Basophils (%) (Auto) 1.5 % (0.0-2.0) Prothrombin Time 10.6 SEC (9.30-11.50) Prothromb Time International Ratio 1.0 (0.9-1.1) Activated Partial Thromboplast Time 27 SEC (23-33) Sodium Level 141 MMOL/L (136-145) Potassium Level 3.0 MMOL/L (3.5-5.1) Chloride Level 103 MMOL/L (98-107) Carbon Dioxide Level 31 MMOL/L (21-32) Anion Gap 7 mmol/L (5-15) Blood Urea Nitrogen 13 mg/dL (7-18) Creatinine 1.7 MG/DL (0.55-1.30) Estimat Glomerular Filtration Rate 36.2 mL/min (>60) Glucose Level 104 MG/DL (74-106) Calcium Level 9.2 MG/DL (8.5-10.1) Total Bilirubin 0.5 MG/DL (0.2-1.0) Aspartate Amino Transf (AST/SGOT) 21 U/L (15-37) Alanine Aminotransferase (ALT/SGPT) 22 U/L (12-78) Alkaline Phosphatase 82 U/L (46-116) Troponin I 0.020 ng/mL (0.000-0.056) Pro-B-Type Natriuretic Peptide 184 pg/mL (0-125) Total Protein 7.0 G/DL (6.4-8.2) Albumin 3.4 G/DL (3.4-5.0) Globulin 3.6 g/dL Albumin/Globulin Ratio 0.9 (1.0-2.7) Lipase 136 U/L (73-393) EKG Diagnostic Results Rate: normal Rhythm: NSR ST Segments: no acute changes Last Vital Signs Date Time Temp Pulse Resp B/P (MAP) Pulse Ox O2 Delivery O2 Flow Rate FiO2 02/02/20 01:33 98.2 76 20 219/113 (148) 100 Room Air Status: unchanged Disposition: ADMITTED INPATIENT Condition: Stable Perico Carranza MD Feb 02, 2020 01:57
--- NOTE | 2020-02-02 02:00 | NUR ---
ED Nurse Note: Blood sent to lab
[2020-02-02] MEDS ORDERED: Morphine Sulfate 2mg/ml Inj(IV/IM USE ONLY) IVP ONE (02:15)
--- NOTE | 2020-02-02 02:15 | NUR ---
ED Nurse Note: Xray done at bedside
[2020-02-02 02:26] LABS: BASOPHILS % (AUTO) 1.5 % (0.0-2.0); EOSINOPHILS % (AUTO) 3.6 % (0.0-3.0); HEMOGLOBIN 12.8 G/DL (12.0-16.0); LYMPHOCYTES % (AUTO) 46.4 % (20.0-45.0); MEAN CORPUSCULAR VOLUME 87 FL (80-99); MONOCYTES % (AUTO) 10.5 % (1.0-10.0); PLATELET COUNT 191 K/UL (150-450); RED BLOOD COUNT 4.27 M/UL (4.20-5.40); RED CELL DISTRIBUTION WIDTH 12.6 % (11.6-14.8)
[2020-02-02 02:38] LABS: CALCIUM 9.2 MG/DL (8.5-10.1); CREATININE 1.7 MG/DL (0.55-1.30)
--- NOTE | 2020-02-02 02:39 | Diagnostic Imaging Report ---
EXAM: XR Chest, 1 View CLINICAL HISTORY: SOB TECHNIQUE: Frontal view of the chest. COMPARISON: 09/25/18 FINDINGS: Lungs: Normal lung volumes. No airspace consolidation. No pulmonary edema. Pleural space: Unremarkable. No pneumothorax. Heart: Unremarkable. No cardiomegaly. Mediastinum: Unremarkable. No mediastinal widening or shift. Bones/joints: No acute osseous abnormality. IMPRESSION: No evidence of active cardiopulmonary abnormality.
[2020-02-02 02:42] LABS: ALBUMIN 3.4 G/DL (3.4-5.0); ALBUMIN/GLOBULIN RATIO 0.9 (1.0-2.7); BILIRUBIN,TOTAL 0.5 MG/DL (0.2-1.0)
--- NOTE | 2020-02-02 03:20 | NUR ---
ED Nurse Note: CT scan done
--- NOTE | 2020-02-02 03:22 | Diagnostic Imaging Report ---
EXAM: CT Head Without Intravenous Contrast CLINICAL HISTORY: WEAK TECHNIQUE: Axial computed tomography images of the head/brain without intravenous contrast. CTDI is 53.40 mGy and DLP is 1045.50 mGy-cm. One or more of the following dose reduction techniques were used: automated exposure control, adjustment of the mA and/or kV according to patient size, use of iterative reconstruction technique. COMPARISON: Brain MRI dated 09/27/18. FINDINGS: Brain: No evidence of acute intracranial hemorrhage. No mass effect or midline shift. No abnormal extra-axial fluid collections. Mild small vessel ischemic disease. Ventricles: Ventricular volumes are within normal limits. Bones/joints: Unremarkable. No acute fracture. Soft tissues: Unremarkable. Sinuses: Unremarkable as visualized. No acute sinusitis. Mastoid air cells: Unremarkable as visualized. No mastoid effusion. IMPRESSION: No evidence of acute intracranial abnormality.
--- NOTE | 2020-02-02 03:39 | Diagnostic Imaging Report ---
EXAM: CT Lumbar Spine Without Intravenous Contrast CLINICAL HISTORY: PAIN TECHNIQUE: Axial computed tomography images of the lumbar spine without intravenous contrast. CTDI is 19.20 mGy and DLP is 945.10 mGy-cm. One or more of the following dose reduction techniques were used: automated exposure control, adjustment of the mA and/or kV according to patient size, use of iterative reconstruction technique. COMPARISON: No relevant prior studies available. FINDINGS: Vertebrae: No acute fracture. No subluxation. Discs/spinal canal/neural foramina: No acute findings. No spinal canal stenosis. Moderate multilevel facet arthropathy. Soft tissues: Unremarkable. IMPRESSION: There is no evidence of acute fracture or malalignment of the lumbar spine. Multilevel degenerative changes.
[2020-02-02] MEDS ORDERED: LOSARTAN POTASS50 MG ORAL (04:40)
--- NOTE | 2020-02-02 04:40 | NUR ---
ED Nurse Note: BP 197/92; ERMD notified = Losartan 100mg/ PO ordered and carried out
[2020-02-02] MEDS ORDERED: Losartan 25mg tab ORAL ONE (04:45)
--- NOTE | 2020-02-02 04:45 | NUR ---
ED Nurse Note: Spoke to ADRIAN KWAN of [facility]. No authorization given yet for admission. Will wait for BP results after 1 hour of giving anti hpn meds per angella
[2020-02-02 06:15] LABS: APPEARANCE,URINE CLEAR; BILIRUBIN, URINE NEGATIVE (NEGATIVE); COLOR,URINE PALE YELLOW; GLUCOSE, URINE (UA) NEGATIVE (NEGATIVE); KETONES,URINE NEGATIVE (NEGATIVE); LEUKOCYTE ESTERASE ,URINE NEGATIVE (NEGATIVE); NITRITE,URINE NEGATIVE (NEGATIVE); PH,URINE 7 (4.5-8.0); PROTEIN,URINE NEGATIVE (NEGATIVE); UROBILINOGEN,URINE NORMAL MG/DL (0.0-1.0)
--- NOTE | 2020-02-02 08:30 | NUR ---
ED Nurse Note: Latest BP: 191/100. Pt denies any pain nor any discomfort. Notified ERMD.
--- NOTE | 2020-02-02 08:50 | NUR ---
ED Nurse Note: Latest BP downgrading to 175/89 now; pt denies any pain nor any discomfort. Notified ERMD and CN, may bring pt to Telemetry unit now.
--- NOTE | 2020-02-02 09:08 | History and Physical ---
History of Present Illness General Date patient seen: Feb 02, 2020 Reason for Hospitalization: pain and weakness in legs Present Illness HPI 70 year old obese female, poor historian presented from [facility] with complaint of low back pain and bilateral leg weakness for one week. At baseline uses a cane to ambulate and that is getting more difficult. She says she has chronic kidney disease and doesn't want to take pain meds due to her kidneys. She tells me she has CHF, COPD, history of colon cancer, fibromyalgia, and CVA with residual left sided weakness. Denies recent fall or trauma. Has baseline swelling in her legs which she thinks is worse now. Says she always has chest pain and she is always short of breath. Denies palpitations. In the ER she was hypertensive. CT head negative for acute abnormality. CXR showed no acute cardiopulmonary disease. CT spine showed no evidence of acute fracture or malalignment of the lumbar spine. Multilevel degenerative changes. Scr 1.7,last 1.2 in 2018. Potassium low at 3. BNP 184, Troponin negative x1. EKG NSR with no st-t changes Past medical and surgical history: HTN, CVA, CHF, COPD, CKD Social history: [facility] Family history: Denies family history of sudden cardiac . Allergies: Coded Allergies: GLUTEN (Verified Allergy, Intermediate, 09/25/18) report Nut Tree (Verified Allergy, Intermediate, 09/25/18) breaks out in rash ASPIRIN (Verified Allergy, Unknown, 09/25/18) IODINE (Verified Allergy, Unknown, 09/25/18) PENICILLINS (Verified Allergy, Unknown, 09/25/18) SHELLFISH DERIVED (Verified Allergy, Unknown, 09/25/18) SULFA (SULFONAMIDE ANTIBIOTICS) (Verified Allergy, Unknown, 09/25/18) Uncoded Allergies: IV CONTRAST (Allergy, Unknown, 02/02/20) PENICILLIN (Allergy, Unknown, 02/02/20) SULFA (Allergy, Unknown, 02/02/20) COVID-19 Screening Contact w/high risk pt: No Experienced COVID-19 symptoms?: No Medication History Scheduled Hydrochlorothiazide* (Hydrochlorothiazide*), 12.5 MG ORAL DAILY, (Reported) Nifedipine Xl* (Procardia Xl*), 90 MG ORAL DAILY, (Reported) Scheduled PRN Losartan Potassium* (Losartan Potassium*), 100 MG ORAL BID PRN for For High Blood Pressure, (Reported) Miscellaneous Medications Multivitamin (Multivitamins), 1 EACH PO, (Reported) Patient History Healthcare decision maker Resuscitation status Advanced Directive on File Review of Systems Constitutional: Reports: weakness Eye: Denies: no symptoms, see HPI, eye pain, blurred vision, tearing, double vision, nose pain, nose congestion, acuity changes, discharge, other ENT: Denies: no symptoms, see HPI, ear pain, ear discharge, nose pain, nose congestion, throat pain, throat swelling, mouth pain, hearing loss, nasal discharge, other Respiratory: Reports: see HPI Cardiovascular: Reports: see HPI, edema Gastrointestinal: Denies: no symptoms, see HPI, abdominal pain, constipation, diarrhea, nausea, vomiting, melena, hematemesis, other Genitourinary: Denies: no symptoms, see HPI, discharge, dysuria, frequency, hematuria, pain, retention, incontinence, urgency, vag bleed/dc, other Musculoskeletal: Denies: no symptoms, see HPI, back pain, gout, joint pain, joint swelling, muscle pain, muscle stiffness, other Skin: Denies: no symptoms, see HPI, rash, change in color, change in hair/nails, dryness, lesions, other Psychiatric: Denies: no symptoms, see HPI, prior hx, anxiety, depressed feelings, emotional problems, SI, HI, hallucinations, other Neurological: Denies: no symptoms, see HPI, headache, numbness, paresthesia, seizure, tingling, tremors, focal weakness, syncope, dizziness, other Hematologic/Lymphatic: Denies: no symptoms, see HPI, anemia, blood clots, easy bleeding, easy bruising, swollen glands, diathesis, other Physical Exam General Appearance: no apparent distress, alert, obese Lines, tubes and drains: peripheral HEENT: normocephalic, atraumatic, anicteric, mucous membranes moist, PERRL, EOMI Neck: non-tender, normal alignment, supple, normal inspection Respiratory/Chest: chest wall non-tender, lungs clear, normal breath sounds, no respiratory distress Extremities: normal range of motion, non-tender, normal inspection, no calf tenderness, moderate edema, pitting Skin Exam: normal pigmentation Neurologic: steam shovelman II-XII grossly normal, alert, oriented x 3 Musculoskeletal: normal muscle bulk Last 24 Hour Vital Signs Date Time Temp Pulse Resp B/P (MAP) Pulse Ox O2 Delivery O2 Flow Rate FiO2 02/02/20 09:05 98.3 84 20 175/93 99 Room Air 02/02/20 08:49 191/100 02/02/20 08:45 98.3 86 21 191/100 99 Room Air 02/02/20 04:47 197/92 02/02/20 04:27 98.3 84 20 197/114 99 Room Air 02/02/20 02:40 98.2 02/02/20 02:20 98.2 78 20 219/113 100 Room Air 02/02/20 01:33 98.2 76 20 219/113 (148) 100 Room Air Laboratory Tests Test 02/02/20 01:45 02/02/20 06:10 White Blood Count 5.0 K/UL (4.8-10.8) Red Blood Count 4.27 M/UL (4.20-5.40) Hemoglobin 12.8 G/DL (12.0-16.0) Hematocrit 37.0 % (37.0-47.0) Mean Corpuscular Volume 87 FL (80-99) Mean Corpuscular Hemoglobin 29.9 PG (27.0-31.0) Mean Corpuscular Hemoglobin Concent 34.5 G/DL (32.0-36.0) Red Cell Distribution Width 12.6 % (11.6-14.8) Platelet Count 191 K/UL (150-450) Mean Platelet Volume 8.8 FL (6.5-10.1) Neutrophils (%) (Auto) 38.0 % (45.0-75.0) L Lymphocytes (%) (Auto) 46.4 % (20.0-45.0) H Monocytes (%) (Auto) 10.5 % (1.0-10.0) H Eosinophils (%) (Auto) 3.6 % (0.0-3.0) H Basophils (%) (Auto) 1.5 % (0.0-2.0) Prothrombin Time 10.6 SEC (9.30-11.50) Prothromb Time International Ratio 1.0 (0.9-1.1) Activated Partial Thromboplast Time 27 SEC (23-33) Sodium Level 141 MMOL/L (136-145) Potassium Level 3.0 MMOL/L (3.5-5.1) L Chloride Level 103 MMOL/L (98-107) Carbon Dioxide Level 31 MMOL/L (21-32) Anion Gap 7 mmol/L (5-15) Blood Urea Nitrogen 13 mg/dL (7-18) Creatinine 1.7 MG/DL (0.55-1.30) H Estimat Glomerular Filtration Rate 36.2 mL/min (>60) Glucose Level 104 MG/DL (74-106) Calcium Level 9.2 MG/DL (8.5-10.1) Total Bilirubin 0.5 MG/DL (0.2-1.0) Aspartate Amino Transf (AST/SGOT) 21 U/L (15-37) Alanine Aminotransferase (ALT/SGPT) 22 U/L (12-78) Alkaline Phosphatase 82 U/L (46-116) Troponin I 0.020 ng/mL (0.000-0.056) Pro-B-Type Natriuretic Peptide 184 pg/mL (0-125) H Total Protein 7.0 G/DL (6.4-8.2) Albumin 3.4 G/DL (3.4-5.0) Globulin 3.6 g/dL Albumin/Globulin Ratio 0.9 (1.0-2.7) L Lipase 136 U/L (73-393) Urine Color Pale yellow Urine Appearance Clear Urine pH 7 (4.5-8.0) Urine Specific [place] 1.010 (1.005-1.035) Urine Protein Negative (NEGATIVE) Urine Glucose (UA) Negative (NEGATIVE) Urine Ketones Negative (NEGATIVE) Urine Blood Negative (NEGATIVE) Urine Nitrite Negative (NEGATIVE) Urine Bilirubin Negative (NEGATIVE) Urine Urobilinogen Normal MG/DL (0.0-1.0) Urine Leukocyte Esterase Negative (NEGATIVE) Height (Feet): 5 Height (Inches): 8.00 Weight (Pounds): 272 Assessment/Plan Problem List: (1) KACIE (acute kidney injury) ICD Codes: N17.9 - Acute kidney failure, unspecified SNOMED: 8140932, 79995185 (2) CKD (chronic kidney disease) ICD Codes: N18.9 - Chronic kidney disease, unspecified SNOMED: 833435642 (3) Leg weakness ICD Codes: R29.898 - Other symptoms and signs involving the musculoskeletal system SNOMED: 792057699, 829471198 (4) History of CVA with residual deficit ICD Codes: I69.30 - Unspecified sequelae of cerebral infarction SNOMED: 435812564 (5) Hypertension ICD Codes: I10 - Essential (primary) hypertension SNOMED: 12219841, 373738039 (6) Hypokalemia ICD Codes: E87.6 - Hypokalemia SNOMED: 19266888, 424609915 (7) CHF (congestive heart failure) ICD Codes: I50.9 - Heart failure, unspecified SNOMED: 01605264 (8) Obese ICD Codes: E66.9 - Obesity, unspecified SNOMED: 789721035, 947800254 (9) Fibromyalgia ICD Codes: M79.7 - Fibromyalgia SNOMED: 163056052 Status: stable Assessment/Plan: 70 year old female with multiple medical problems presented with bilateral LE weakness and swelling #BL LE weakness- multifactorial- imagining negative for acute pathology admit PT/OT out of bed to chair #Hypertensive emergency- possible end organ damage (KACIE) -Hold home HCTZ hold losartan given KACIE procardia not on formulary Amlodipine 10- patient refusing Hydralazine prn #KACIE- vs KACIE on CKD -monitor renal function -Nephrology consult #History of CVA statin she is allergic to ASA #CHF- mild exacerbation. systolic vs diastolic tele 2d echo gentle diuresis with lasix monitor electrolytes cardiology consult #Hypokalemia replace prn #Obesity counselled to lose weight, life style modifications offered vte ppx: lovenox diet: cardiac Code status: full code I spent 72 minutes on this encounter. 35 minutes spent on counselling and care coordination Perico Perez M.D. Feb 02, 2020 09:07
--- NOTE | 2020-02-02 09:10 | NUR ---
ED Nurse Note: Report given to CATHLEEN Gao in Telemetry Unit
[2020-02-02] MEDS ORDERED: Albuterol/Ipratropium 3ml neb HHN PRN (09:15)
[2020-02-02] MEDS ORDERED: Milk of Magnesia 30ml Ud ORAL PRN (09:15)
[2020-02-02] MEDS ORDERED: Morphine Sulfate 2mg/ml Inj(IV/IM USE ONLY) IVP PRN (09:15)
[2020-02-02] MEDS ORDERED: Miralax 17gm pkt ORAL PRN (09:15)
[2020-02-02] MEDS ORDERED: HydrALAZINE 25mg tab ORAL PRN (09:15)
[2020-02-02] MEDS ORDERED: Zolpidem 5mg tab ORAL PRN (09:15)
--- NOTE | 2020-02-02 09:41 | NUR ---
NURSE NOTES: Received report from CATHLEEN Lopez. Pt is stable and resting in bed. Pt on RA with no s/s or complaints of distress at this time. pt purewick changed. pt on tele monitor, gown changed. bed low and locked clal light in reach and bed alarm on. pt verbalized understanding to call for help. Pt VS at this time: 229/110, 73HR, 17RR, 96.8 F oral. and 96% on RA, even and unlabored breathing. MD bedside notified of current BP, orders acknowledged and carried out. IV on RAC 20g, SL asymptomatic and intact.
[2020-02-02] MEDS: Enoxaparin 40mg Inj SUBQ SCH ×2 (10:08→10:28)
--- NOTE | 2020-02-02 10:17 | NUR ---
NURSE NOTES: Pt refusing Amlodipine because in the past it has caused her to swell up her legs and feet, and SOB. added to Pt allergy list. Pt also refusing to take Enoxaparin. Risks and benefits explained thoroughly, says "she doesnt like shots especially with the pandemic". Addendum: 02/02/20 at 1029 by Sima Cisneros RN RN Amlodipine not an allergy, side effect. Pt still refuses Addendum: 02/02/20 at 1122 by Sima Cisneros RN RN Dr Perez notified of refusal of Amlodipine and Enoxaparin. orders to give hydralazine SALLY and SCDs. Orders ackowledged and carried out. last BP 163/80, stable
--- NOTE | 2020-02-02 11:30 | NUR ---
NURSE NOTES: SCDs applied, Pt tolerating well.
--- NOTE | 2020-02-02 12:40 | NUR ---
NURSE NOTES: BP rechecked 143/67
--- NOTE | 2020-02-02 15:00 | NUR ---
NURSE NOTES: Pt BP 163/90 at this time. Pt has no PRN BP med due until 3 hours from now and no scheduled medication. Pt is stable aside from elevated BP. Phoned Dr Perez and left msg, regarding Pt BP. awaiting call back Addendum: 02/02/20 at 1721 by Sima Cisneros RN RN Dr Gray to see Pt. Pt medications adjusted. Orders acknowledged and carried out
[2020-02-02] MEDS ORDERED: HydrALAZINE 50mg tab ORAL PRN (15:30)
--- NOTE | 2020-02-02 15:51 | Cardiac Electrophysiology PN ---
Subjective Subjective [id number] Objective Last 24 Hour Vital Signs Date Time Temp Pulse Resp B/P (MAP) Pulse Ox O2 Delivery O2 Flow Rate FiO2 02/02/20 12:00 97.7 66 20 163/90 (114) 98 02/02/20 12:00 68 02/02/20 11:19 163/80 02/02/20 10:00 68 163/90 02/02/20 09:41 Room Air 02/02/20 09:05 98.3 84 20 175/93 99 Room Air 02/02/20 09:00 98.3 86 20 175/89 100 Room Air 02/02/20 08:49 191/100 02/02/20 08:45 98.3 86 21 191/100 99 Room Air 02/02/20 04:47 197/92 02/02/20 04:27 98.3 84 20 197/114 99 Room Air 02/02/20 02:40 98.2 02/02/20 02:20 98.2 78 20 219/113 100 Room Air 02/02/20 01:33 98.2 76 20 219/113 (148) 100 Room Air Laboratory Tests Test 02/02/20 01:45 02/02/20 06:10 02/02/20 15:00 White Blood Count 5.0 K/UL (4.8-10.8) Red Blood Count 4.27 M/UL (4.20-5.40) Hemoglobin 12.8 G/DL (12.0-16.0) Hematocrit 37.0 % (37.0-47.0) Mean Corpuscular Volume 87 FL (80-99) Mean Corpuscular Hemoglobin 29.9 PG (27.0-31.0) Mean Corpuscular Hemoglobin Concent 34.5 G/DL (32.0-36.0) Red Cell Distribution Width 12.6 % (11.6-14.8) Platelet Count 191 K/UL (150-450) Mean Platelet Volume 8.8 FL (6.5-10.1) Neutrophils (%) (Auto) 38.0 % (45.0-75.0) L Lymphocytes (%) (Auto) 46.4 % (20.0-45.0) H Monocytes (%) (Auto) 10.5 % (1.0-10.0) H Eosinophils (%) (Auto) 3.6 % (0.0-3.0) H Basophils (%) (Auto) 1.5 % (0.0-2.0) Prothrombin Time 10.6 SEC (9.30-11.50) Prothromb Time International Ratio 1.0 (0.9-1.1) Activated Partial Thromboplast Time 27 SEC (23-33) Sodium Level 141 MMOL/L (136-145) Potassium Level 3.0 MMOL/L (3.5-5.1) L Chloride Level 103 MMOL/L (98-107) Carbon Dioxide Level 31 MMOL/L (21-32) Anion Gap 7 mmol/L (5-15) Blood Urea Nitrogen 13 mg/dL (7-18) Creatinine 1.7 MG/DL (0.55-1.30) H Estimat Glomerular Filtration Rate 36.2 mL/min (>60) Glucose Level 104 MG/DL (74-106) Calcium Level 9.2 MG/DL (8.5-10.1) Total Bilirubin 0.5 MG/DL (0.2-1.0) Aspartate Amino Transf (AST/SGOT) 21 U/L (15-37) Alanine Aminotransferase (ALT/SGPT) 22 U/L (12-78) Alkaline Phosphatase 82 U/L (46-116) Troponin I 0.020 ng/mL (0.000-0.056) 0.018 ng/mL (0.000-0.056) Pro-B-Type Natriuretic Peptide 184 pg/mL (0-125) H Total Protein 7.0 G/DL (6.4-8.2) Albumin 3.4 G/DL (3.4-5.0) Globulin 3.6 g/dL Albumin/Globulin Ratio 0.9 (1.0-2.7) L Lipase 136 U/L (73-393) Urine Color Pale yellow Urine Appearance Clear Urine pH 7 (4.5-8.0) Urine Specific [place] 1.010 (1.005-1.035) Urine Protein Negative (NEGATIVE) Urine Glucose (UA) Negative (NEGATIVE) Urine Ketones Negative (NEGATIVE) Urine Blood Negative (NEGATIVE) Urine Nitrite Negative (NEGATIVE) Urine Bilirubin Negative (NEGATIVE) Urine Urobilinogen Normal MG/DL (0.0-1.0) Urine Leukocyte Esterase Negative (NEGATIVE) Trino Gray MD Feb 02, 2020 15:51
--- NOTE | 2020-02-02 16:03 | NUR ---
CASE MANAGEMENT: Faxed clinical info (face sheet /H&P/ ER MD notes/ cardio progress notes/ lab and imaging reports inc admit order) to [facility] @ [phone] / [phone].
--- NOTE | 2020-02-02 17:00 | Consultation ---
DATE OF CONSULTATION: 02/02/2020 CARDIOLOGY CONSULTATION REASON FOR CONSULTATION: Accelerated hypertension. HISTORY OF PRESENT ILLNESS: The patient is a 70-year-old lady with history of obesity as well as history of CVA with left-sided weakness presented to the emergency room for back pain as well as bilateral leg weakness for a week. The patient was noted to have a history of accelerated hypertension with blood pressure of 200. Cardiology consultation was obtained for further evaluation. The patient also has history of congestive heart failure, COPD, colon cancer, and fibromyalgia. The patient denies any coronary artery disease or prior myocardial infarction or any cardiac device implantation. REVIEW OF SYSTEMS: Negative other than what is mentioned in the history of present illness. PAST MEDICAL HISTORY: As mentioned above. FAMILY HISTORY: Noncontributory. SOCIAL HISTORY: She lives in . Does not smoke or drink alcohol. ALLERGIES: She is allergic to gluten, aspirin, iodine, penicillin, shellfish, sulfa. PHYSICAL EXAMINATION: VITAL SIGNS: Show blood pressure of 180/90, pulse is 70, respirations 18, temperature is afebrile. HEAD AND NECK: Shows no JVD. LUNGS: Clear. CARDIOVASCULAR: Regular S1 and S2 with no gallop. ABDOMEN: Soft. EXTREMITIES: Bilateral lower extremity edema. LABORATORY AND DIAGNOSTIC DATA: Labs show white count of 5, hemoglobin 12.8, hematocrit 37 and platelet count is 191. Sodium 141, potassium 3.0, BUN of 15, creatinine 1.7. Troponin negative x2. ASSESSMENT AND PLAN: 1. Chest pain. The patient was ruled out for myocardial infarction with serial cardiac enzymes. We will repeat EKG and get an echocardiogram for further evaluation. 2. Accelerated hypertension. The patient is refusing amlodipine. She states that caused her legs to swell up even more. Discontinue amlodipine and increase Lasix 40 mg IV b.i.d. Start the patient on hydralazine 50 mg b.i.d. for better blood pressure control. The patient also on p.r.n. clonidine as p.r.n. hydralazine as well. 3. History of congestive heart failure. Echocardiogram has already been performed which showed ejection fraction of 60%. Original EKG shows sinus rhythm with LVH. 4. History of CVA with left-sided hemiparesis. Thank you very much for allowing me to participate in the care of this patient. Please do not hesitate to contact me for any questions regarding my evaluation. Sincerely, Trino Gray M.D. DR: Prasad JOB#: [id number] CC:
[2020-02-02] MEDS: HydrALAZINE 25mg tab ORAL SCH (17:13)
--- NOTE | 2020-02-02 17:21 | NUR ---
NURSE NOTES: Pt given education regarding preventing pressure ulcers. Pt verbalized understanding of and importance of turning self every 1-2hr. Pt says she can do independently and does not want help.
--- NOTE | 2020-02-02 17:58 | NUR ---
NURSE NOTES: BP reassessment after Hydralazine. BP down to 143/67
--- NOTE | 2020-02-02 19:30 | NUR ---
NURSE NOTES: Received pt and report from CATHLEEN Gao. Observed pt resting in bed with both eyes open and watching television. Pt is A/Ox4. synchronizer is in placed; pt is NSR. IV site intact, asymptomatic, and patent. Bed in the lowest position and locked. Call light and bedside table is within reach. No signs/symptoms of acute distress noted. Will continue plan of care.
--- NOTE | 2020-02-02 19:31 | NUR ---
NURSE HAND-OFF REPORT: Important Events on Shift: extreme hypertension SBP 225-- now is 143/67 Patient Status: fc, stable Diet: low sodium diet Pending Orders: Pending Results/Labs: Pending MD notification: Latest Vital Signs: Temperature 98.4 , Pulse 82 , B/P 134 /67 , Respiratory Rate 17 , O2 SAT 98 , Room Air, O2 Flow Rate . Vital Sign Comment: EKG Rhythm: Sinus Rhythm Rhythm change?: N MD Notified?: - MD Response: Latest Gutierrez Fall Score: 70 Fall Risk: High Risk Safety Measures: Call light Within Reach, Bed Alarm Zone 2, Side Rails Side Rails x2, Bed position Low and Locked. Fall Precautions: Yellow Socks Door Sign Patient Fall Education Report given to CATHLEEN Garibay.
--- NOTE | 2020-02-02 23:44 | NUR ---
NURSE NOTES: Observed pt resting in bed with both eyes closed. No signs/symptoms of acute distress noted.
[2020-02-03] VITALS: BP 133/84
[2020-02-03 04:00] VITALS: BP 148/87
[2020-02-03 06:44] LABS: BASOPHILS % (AUTO) 1.2 % (0.0-2.0); EOSINOPHILS % (AUTO) 3.5 % (0.0-3.0); HEMATOCRIT 35.1 % (37.0-47.0); HEMOGLOBIN 11.8 G/DL (12.0-16.0); LYMPHOCYTES % (AUTO) 45.6 % (20.0-45.0); MEAN CORPUSCULAR VOLUME 87 FL (80-99); MONOCYTES % (AUTO) 10.9 % (1.0-10.0); NEUTROPHILS % (AUTO) 38.8 % (45.0-75.0); PLATELET COUNT 175 K/UL (150-450); RED BLOOD COUNT 4.04 M/UL (4.20-5.40); RED CELL DISTRIBUTION WIDTH 12.6 % (11.6-14.8); WHITE BLOOD COUNT 3.9 K/UL (4.8-10.8)
[2020-02-03 07:13] LABS: ANION GAP 6 mmol/L (5-15); BLOOD UREA NITROGEN 21 mg/dL (7-18); CALCIUM 8.3 MG/DL (8.5-10.1); CARBON DIOXIDE 28 MMOL/L (21-32); CHLORIDE 106 MMOL/L (98-107); CHOLESTEROL 194 MG/DL (< 200); CREATININE 1.5 MG/DL (0.55-1.30); HDL CHOLESTEROL 55 MG/DL (40-60); POTASSIUM 3.5 MMOL/L (3.5-5.1); SODIUM 140 MMOL/L (136-145); TRIGLYCERIDES 63 MG/DL (30-150)
--- NOTE | 2020-02-03 07:24 | NUR ---
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 Patient Status: Stable Diet: Low Sodium Pending Orders: N Pending Results/Labs: AM Labs Pending MD notification: N Latest Vital Signs: Temperature 98.6 , Pulse 64 , B/P 148 /87 , Respiratory Rate 19 , O2 SAT 96 , Room Air, O2 Flow Rate . EKG Rhythm: Sinus Rhythm Rhythm change?: N Latest Gutierrez Fall Score: 70 Fall Risk: High Risk Safety Measures: Call light Within Reach, Bed Alarm Zone 1, Side Rails Side Rails x2, Bed position Low and Locked. Fall Precautions: Yellow Socks Yellow Gown Door Sign Patient Fall Education Report given to CATHLEEN Hernandez.
--- NOTE | 2020-02-03 07:35 | NUR ---
NURSE NOTES: Received pt and report from Lani RN. Pt is resting in bed with both eyes open and eating breakfast. Pt is A/O x4 and verbally responsive. CM shows NSR. Pt has IV site RAC 20G intact, asymptomatic, and patent. Bed in the lowest position and locked. Call light and bedside table is within reach. Will continue plan of care.
[2020-02-03 08:00] VITALS: BP 155/78
--- NOTE | 2020-02-03 08:18 | Cardiology Report ---
APPROVED REPORT EXAM: Two-dimensional and M-mode echocardiogram with Doppler and color Doppler. INDICATION Hypertension M-Mode DIMENSIONS IVSd0.9 (0.7-1.1cm)Left Atrium (MM)3.3 (1.6-4.0cm) LVDd5.2 (3.5-5.6cm)Aortic Root3.2 (2.0-3.7cm) PWd0.9 (0.7-1.1cm)Aortic Cusp Exc.1.8 (1.5-2.0cm) IVSs0.8 cmEPSS1.0 (>1.0cm) LVDs3.5 (2.5-4.0cm) PWs0.9 cm <Conclusion> Normal left ventricular chamber size, systolic function and wall motion. Left ventricular ejection fraction estimated to be 60 %. No evidence of left ventricular hypertrophy. No evidence of pericardial effusion. All other cardiac chamber sizes are within normal limits. Focal aortic valve sclerosis with adequate cusp excursion. Thickened mitral valve leaflets with normal excursion. Mitral annulus and aortic root calcification. Pulmonic valve not well visualized. Normal tricuspid valve structure. IVC is normal in size with physiological collapse. A color flow and spectral Doppler study was performed and revealed: No aortic regurgitation. No mitral regurgitation. Mitral diastolic velocities suggest mild left ventricular diastolic dysfunction (Grade I). No tricuspid regurgitation. Tricuspid systolic velocities suggests peak right ventricular systolic pressure of 14 mmHg.
--- NOTE | 2020-02-03 08:57 | General Progress Note ---
Subjective Date patient seen: Feb 03, 2020 ROS Limited/Unobtainable: No Constitutional: Reports: no symptoms, chills, diaphoresis, fever, malaise, weakness, other HEENT: Denies: no symptoms, eye pain, blurred vision, tearing, double vision, ear pain, ear discharge, nose pain, nose congestion, throat pain, throat swelling, mouth pain, mouth swelling, other Cardiovascular: Reports: edema Respiratory: Denies: no symptoms, cough, orthopnea, shortness of breath, SOB with excertion, SOB at rest, sputum, stridor, wheezing, other Gastrointestinal/Abdominal: Denies: no symptoms, abdomen distended, abdominal pain, black stools, tarry stools, blood in stool, constipated, diarrhea, difficulty swallowing, nausea, poor appetite, poor fluid intake, rectal bleeding, vomiting, other Genitourinary: Denies: no symptoms, burning, discharge, frequency, flank pain, hematuria, incontinence, pain, urgency, other Neurologic/Psychiatric: Denies: no symptoms, anxiety, depressed, emotional problems, headache, numbness, paresthesia, pre-existing deficit, seizure, tingling, tremors, weakness, other Endocrine: Denies: no symptoms, excessive sweating, flushing, intolerance to cold, intolerance to heat, increased hunger, increased thirst, increased urine, unexplained weight gain, unexplained weight loss, other Hematologic/Lymphatic: Denies: no symptoms, anemia, easy bleeding, easy bruising, other Allergies: Coded Allergies: GLUTEN (Verified Allergy, Intermediate, 09/25/18) report Nut Tree (Verified Allergy, Intermediate, 09/25/18) breaks out in rash ASPIRIN (Verified Allergy, Unknown, 09/25/18) IODINE (Verified Allergy, Unknown, 09/25/18) PENICILLINS (Verified Allergy, Unknown, 09/25/18) SHELLFISH DERIVED (Verified Allergy, Unknown, 09/25/18) SULFA (SULFONAMIDE ANTIBIOTICS) (Verified Allergy, Unknown, 09/25/18) Uncoded Allergies: IV CONTRAST (Allergy, Unknown, 02/02/20) PENICILLIN (Allergy, Unknown, 02/02/20) SULFA (Allergy, Unknown, 02/02/20) Subjective no acute events bp high, refused amlodipine. cardialogy started on hydralazine bid denies chest pain, son, palps echo ef 60% renal function improving with diuresis ACS ruled out Objective Last 24 Hour Vital Signs Date Time Temp Pulse Resp B/P (MAP) Pulse Ox O2 Delivery O2 Flow Rate FiO2 02/03/20 08:05 Room Air 02/03/20 08:00 98.3 69 20 155/78 (103) 96 02/03/20 04:00 98.6 65 19 148/87 (107) 96 02/03/20 04:00 64 02/03/20 00:00 99.3 68 17 133/84 (100) 95 02/03/20 00:00 68 02/02/20 21:00 Room Air 02/02/20 20:00 99.6 73 17 136/79 (98) 95 02/02/20 20:00 88 02/02/20 17:58 82 17 134/67 (89) 02/02/20 17:20 67 18 142/76 (98) 02/02/20 17:13 162/90 02/02/20 16:00 98.4 68 18 162/90 (114) 98 02/02/20 16:00 70 02/02/20 12:00 97.7 66 20 163/90 (114) 98 02/02/20 12:00 68 02/02/20 11:19 163/80 02/02/20 10:00 68 163/90 02/02/20 09:41 Room Air 02/02/20 09:05 98.3 84 20 175/93 99 Room Air 02/02/20 09:00 98.3 86 20 175/89 100 Room Air Intake and Output 02/02/20 02/03/20 19:00 07:00 Intake Total 240 ml Output Total 550 ml 600 ml Balance -310 ml -600 ml Intake Oral 240 ml Output Urine Total 550 ml 600 ml # Voids 1 # Bowel Movements 1 Laboratory Tests 02/02/20 15:00: Troponin I 0.018 02/03/20 05:32: White Blood Count 3.9L, Red Blood Count 4.04L, Hemoglobin 11.8L, Hematocrit 35.1L, Mean Corpuscular Volume 87, Mean Corpuscular Hemoglobin 29.3, Mean Corpuscular Hemoglobin Concent 33.8, Red Cell Distribution Width 12.6, Platelet Count 175, Mean Platelet Volume 8.5, Neutrophils (%) (Auto) 38.8L, Lymphocytes (%) (Auto) 45.6H, Monocytes (%) (Auto) 10.9H, Eosinophils (%) (Auto) 3.5H, Basophils (%) (Auto) 1.2, Sodium Level 140, Potassium Level 3.5, Chloride Level 106, Carbon Dioxide Level 28, Anion Gap 6, Blood Urea Nitrogen 21H, Creatinine 1.5H, Estimat Glomerular Filtration Rate 41.8, Glucose Level 94, Calcium Level 8.3L, Pro-B-Type Natriuretic Peptide 60, Triglycerides Level 63, Cholesterol Level 194, LDL Cholesterol 120H, HDL Cholesterol 55, Cholesterol/HDL Ratio 3.5 Height (Feet): 5 Height (Inches): 8.00 Weight (Pounds): 272 General Appearance: no apparent distress, alert EENT: PERRL/EOMI, normal ENT inspection, TMs normal, pharynx normal Neck: non-tender, normal alignment, supple, normal inspection Cardiovascular: normal peripheral pulses, normal rate, regular rhythm, no gallop/murmur, no JVD Respiratory/Chest: chest wall non-tender, lungs clear, normal breath sounds, no respiratory distress Abdomen: non tender, soft Extremities: non-tender, no calf tenderness Edema: mild edema 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, alert, oriented x 3, responsive, motor weakness - left 4/5 Assessment/Plan Problem List: (1) KACIE (acute kidney injury) ICD Codes: N17.9 - Acute kidney failure, unspecified SNOMED: 5833402, 59045079 (2) CKD (chronic kidney disease) ICD Codes: N18.9 - Chronic kidney disease, unspecified SNOMED: 043997482 (3) Leg weakness ICD Codes: R29.898 - Other symptoms and signs involving the musculoskeletal system SNOMED: 412638401, 169999412 (4) History of CVA with residual deficit ICD Codes: I69.30 - Unspecified sequelae of cerebral infarction SNOMED: 171639574 (5) Hypertension ICD Codes: I10 - Essential (primary) hypertension SNOMED: 98768120, 943512311 (6) Hypokalemia ICD Codes: E87.6 - Hypokalemia SNOMED: 47867906, 278851787 (7) CHF (congestive heart failure) ICD Codes: I50.9 - Heart failure, unspecified SNOMED: 99761046 (8) Obese ICD Codes: E66.9 - Obesity, unspecified SNOMED: 408489835, 369235027 (9) Fibromyalgia ICD Codes: M79.7 - Fibromyalgia SNOMED: 476351620 Status: stable Assessment/Plan: 70 year old female with multiple medical problems presented with bilateral LE weakness and swelling #BL LE weakness- multifactorial- imagining negative for acute pathology admit PT/OT out of bed to chair #Hypertensive emergency- possible end organ damage (KACIE) -Hold home HCTZ hold losartan given KACIE procardia not on formulary Amlodipine 10- patient refusing- stop Hydralazine prn . hydralazine 50 bid, cozzar 100 reyna, clonidine prn #KACIE- vs KACIE on CKD -monitor renal function -Nephrology consult -improving #History of CVA statin she is allergic to ASA #CHF- mild exacerbation. diastolic #chest pain, ACS ruled out tele 2d echo- reviewed ef 60% stress test gentle diuresis with lasix 40 mg iv bid monitor electrolytes cardiology consult #Hypokalemia replace prn #Obesity counselled to lose weight, life style modifications offered vte ppx: lovenox diet: cardiac Code status: full code I spent 42 minutes on this encounter. 25 minutes spent on counselling and care coordination Perico Perez M.D. Feb 03, 2020 08:57
[2020-02-03] MEDS: Losartan 50mg tab ORAL SCH (09:15)
[2020-02-03] MEDS: HydrALAZINE 25mg tab ORAL SCH ×2 (09:16→17:20)
--- NOTE | 2020-02-03 10:10 | NUR ---
PT EVALUATION NOTE Patient seen for initial evaluation and treatment initiated. Patient presents with generalized weakness and multiple c/o pain which impairs patient's ability to perform mobility tasks safely. Patient requires min assist for bed mobility. Patient able to transfer with SBA and FWW. Patient ambulated 50 ft with SBA/CGA and FWW, slowed pace with decreased foot clearance and bilateral step length. Patient c/o low back, neck, LUE and L hip pain rated at 10/10. Patient will benefit from skilled inpatient PT intervention to increase LE strength and postural stability for improved level of functional mobility with decreased pain and increased safety. Recommend discharge to short term SNF for rehab vs return to recup care depending on patient's progress once medically cleared by MD. Recommend FWW for increased stability with ambulation. Addendum: 02/03/20 at 1145 by BI AGUIRRE PT Amended: Links added.
[2020-02-03] MEDS: Enoxaparin 40mg Inj SUBQ SCH (10:20)
--- NOTE | 2020-02-03 10:21 | NUR ---
NURSES NOTES: Explained to the pt that it was ordered to give her Lovenox and pt stated your not giving me anything as a shot. Explained risks and benefits of not getting the blood thinner. Pt still continued to refused. Informed Dr. Perez of the refusal while she was on the floor.
--- NOTE | 2020-02-03 10:43 | NUR ---
CASE MANAGEMENT:REVIEW BIBA FROM [facility] CC: BLE PAIN. SI: CHF. HTN. HYPOKALEMIA 98.3 76 20 219/113 100% ON RA K-3.0 CR+1.7 IS: IV MORPHINE IV MAG SULFATE CLONIDINE PO KCL PO LOSARTAN PO IV LASIX CT HEAD CHEST RAY CT L SPINE : TO TELEMETRY DCP: FROM HOME
[2020-02-03 12:00] VITALS: BP 143/74
--- NOTE | 2020-02-03 13:10 | Cardiac Electrophysiology PN ---
Assessment/Plan Assessment/Plan 1. Chest pain. The patient was ruled out for myocardial infarction with serial cardiac enzymes. Echocardiogram Nl EF 60%.Schedule for stress test in am 2. Accelerated hypertension. The patient is refusing amlodipine. On Lasix 40 mg IV daily. and hydralazine 25 mg b.i.d. and Cozaar 100 daily The patient also on p.r.n. clonidine as p.r.n. hydralazine as well. 3. History of congestive heart failure. Echocardiogram has already been performed which showed ejection fraction of 60%. Original EKG shows sinus rhythm with LVH. 4. History of CVA with left-sided hemiparesis. Subjective Subjective Feeling better. No CP Objective Last 24 Hour Vital Signs Date Time Temp Pulse Resp B/P (MAP) Pulse Ox O2 Delivery O2 Flow Rate FiO2 02/03/20 12:00 63 02/03/20 12:00 97.9 65 20 143/74 (97) 97 02/03/20 09:16 155/78 02/03/20 09:15 155/78 02/03/20 08:05 Room Air 02/03/20 08:00 98.3 69 20 155/78 (103) 96 02/03/20 08:00 71 02/03/20 04:00 98.6 65 19 148/87 (107) 96 02/03/20 04:00 64 02/03/20 00:00 99.3 68 17 133/84 (100) 95 02/03/20 00:00 68 02/02/20 21:00 Room Air 02/02/20 20:00 99.6 73 17 136/79 (98) 95 02/02/20 20:00 88 02/02/20 17:58 82 17 134/67 (89) 02/02/20 17:20 67 18 142/76 (98) 02/02/20 17:13 162/90 02/02/20 16:00 98.4 68 18 162/90 (114) 98 02/02/20 16:00 70 Intake and Output 02/02/20 02/03/20 19:00 07:00 Intake Total 240 ml Output Total 550 ml 600 ml Balance -310 ml -600 ml Intake Oral 240 ml Output Urine Total 550 ml 600 ml # Voids 1 # Bowel Movements 1 Laboratory Tests Test 02/02/20 15:00 02/03/20 05:32 Troponin I 0.018 ng/mL (0.000-0.056) White Blood Count 3.9 K/UL (4.8-10.8) L Red Blood Count 4.04 M/UL (4.20-5.40) L Hemoglobin 11.8 G/DL (12.0-16.0) L Hematocrit 35.1 % (37.0-47.0) L Mean Corpuscular Volume 87 FL (80-99) Mean Corpuscular Hemoglobin 29.3 PG (27.0-31.0) Mean Corpuscular Hemoglobin Concent 33.8 G/DL (32.0-36.0) Red Cell Distribution Width 12.6 % (11.6-14.8) Platelet Count 175 K/UL (150-450) Mean Platelet Volume 8.5 FL (6.5-10.1) Neutrophils (%) (Auto) 38.8 % (45.0-75.0) L Lymphocytes (%) (Auto) 45.6 % (20.0-45.0) H Monocytes (%) (Auto) 10.9 % (1.0-10.0) H Eosinophils (%) (Auto) 3.5 % (0.0-3.0) H Basophils (%) (Auto) 1.2 % (0.0-2.0) Sodium Level 140 MMOL/L (136-145) Potassium Level 3.5 MMOL/L (3.5-5.1) Chloride Level 106 MMOL/L (98-107) Carbon Dioxide Level 28 MMOL/L (21-32) Anion Gap 6 mmol/L (5-15) Blood Urea Nitrogen 21 mg/dL (7-18) H Creatinine 1.5 MG/DL (0.55-1.30) H Estimat Glomerular Filtration Rate 41.8 mL/min (>60) Glucose Level 94 MG/DL (74-106) Calcium Level 8.3 MG/DL (8.5-10.1) L Pro-B-Type Natriuretic Peptide 60 pg/mL (0-125) Triglycerides Level 63 MG/DL (30-150) Cholesterol Level 194 MG/DL (< 200) LDL Cholesterol 120 mg/dL (<100) H HDL Cholesterol 55 MG/DL (40-60) Cholesterol/HDL Ratio 3.5 (3.3-4.4) Objective HEAD AND NECK: Shows no JVD. LUNGS: Clear. CARDIOVASCULAR: Regular S1 and S2 with no gallop. ABDOMEN: Soft. EXTREMITIES: Bilateral lower extremity edema. Trino Gray MD Feb 03, 2020 13:10
[2020-02-03] MEDS ORDERED: Lexiscan 0.4mg/5ml syringe IV PRN (13:15)
--- NOTE | 2020-02-03 14:01 | Consultation ---
History of Present Illness General Chief Complaint: Pain Reason for Consultation: KACIE Present Illness HPI 70 year old obese female, poor [facility] back pain and bilateral leg weakness for one week. At baseline uses a cane to ambulate and that is getting more difficult. She says she has chronic kidney disease and doesn't want to take pain meds due to her kidneys. She tells me she has CHF, COPD, history of colon cancer, fibromyalgia, and CVA with residual left sided weakness. Denies recent fall or trauma. Has baseline swelling in her legs which she thinks is worse now. Says she always has chest pain and she is always short of breath. Denies palpitations. In the ER she was hypertensive. CT head negative for acute abnormality. CXR showed no acute cardiopulmonary disease. CT spine showed no evidence of acute fracture or malalignment of the lumbar spine. Multilevel degenerative changes. Scr 1.7,last 1.2 in 2019. Potassium low at 3. BNP 184, Troponin negative x1. EKG NSR with no st-t changes Past medical and surgical history: HTN, CVA, CHF, COPD, CKD Social history: Lives in [facility] Family history: Denies family history of sudden cardiac Allergies: Coded Allergies: GLUTEN (Verified Allergy, Intermediate, 09/25/18) report Nut Tree (Verified Allergy, Intermediate, 09/25/18) breaks out in rash ASPIRIN (Verified Allergy, Unknown, 09/25/18) IODINE (Verified Allergy, Unknown, 09/25/18) PENICILLINS (Verified Allergy, Unknown, 09/25/18) SHELLFISH DERIVED (Verified Allergy, Unknown, 09/25/18) SULFA (SULFONAMIDE ANTIBIOTICS) (Verified Allergy, Unknown, 09/25/18) Uncoded Allergies: IV CONTRAST (Allergy, Unknown, 02/02/20) PENICILLIN (Allergy, Unknown, 02/02/20) SULFA (Allergy, Unknown, 02/02/20) Medication History Scheduled Losartan Potassium (Losartan Potassium), 100 MG ORAL BID, (Reported) Multivitamin (Multivitamins), 1 TAB PO DAILY, (Reported) Discontinued Medications Hydrochlorothiazide* (Hydrochlorothiazide*), 12.5 MG ORAL DAILY, (Reported) Discontinued Reason: Therapy completed Losartan Potassium* (Losartan Potassium*), 100 MG ORAL BID PRN for For High Blood Pressure, (Reported) Discontinued Reason: Prescription changed Nifedipine Xl* (Procardia Xl*), 90 MG ORAL DAILY, (Reported) Discontinued Reason: Therapy completed Patient History Healthcare decision maker Resuscitation status Advanced Directive on File Review of Systems All Other Systems: negative except mentioned in HPI Physical Exam Physical Exam Narrative General Appearance: no apparent distress, alert, obese Lines, tubes and drains: peripheral HEENT: normocephalic, atraumatic, anicteric, mucous membranes moist, PERRL, EOMI Neck: non-tender, normal alignment, supple, normal inspection Respiratory/Chest: chest wall non-tender, lungs clear, normal breath sounds, no respiratory distress Extremities: normal range of motion, non-tender, normal inspection, no calf tenderness, moderate edema, pitting Skin Exam: normal pigmentation 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 II-XII grossly normal, alert, oriented x 3 Musculoskeletal: normal muscle bulk Last 24 Hour Vital Signs Date Time Temp Pulse Resp B/P (MAP) Pulse Ox O2 Delivery O2 Flow Rate FiO2 02/03/20 12:00 63 02/03/20 12:00 97.9 65 20 143/74 (97) 97 02/03/20 09:16 155/78 02/03/20 09:15 155/78 02/03/20 08:05 Room Air 02/03/20 08:00 98.3 69 20 155/78 (103) 96 02/03/20 08:00 71 02/03/20 04:00 98.6 65 19 148/87 (107) 96 02/03/20 04:00 64 02/03/20 00:00 99.3 68 17 133/84 (100) 95 02/03/20 00:00 68 02/02/20 21:00 Room Air 02/02/20 20:00 99.6 73 17 136/79 (98) 95 02/02/20 20:00 88 02/02/20 17:58 82 17 134/67 (89) 02/02/20 17:20 67 18 142/76 (98) 02/02/20 17:13 162/90 02/02/20 16:00 98.4 68 18 162/90 (114) 98 02/02/20 16:00 70 Intake and Output 02/02/20 02/03/20 19:00 07:00 Intake Total 240 ml Output Total 550 ml 600 ml Balance -310 ml -600 ml Intake Oral 240 ml Output Urine Total 550 ml 600 ml # Voids 1 # Bowel Movements 1 Laboratory Tests Test 02/02/20 15:00 02/03/20 05:32 Troponin I 0.018 ng/mL (0.000-0.056) White Blood Count 3.9 K/UL (4.8-10.8) L Red Blood Count 4.04 M/UL (4.20-5.40) L Hemoglobin 11.8 G/DL (12.0-16.0) L Hematocrit 35.1 % (37.0-47.0) L Mean Corpuscular Volume 87 FL (80-99) Mean Corpuscular Hemoglobin 29.3 PG (27.0-31.0) Mean Corpuscular Hemoglobin Concent 33.8 G/DL (32.0-36.0) Red Cell Distribution Width 12.6 % (11.6-14.8) Platelet Count 175 K/UL (150-450) Mean Platelet Volume 8.5 FL (6.5-10.1) Neutrophils (%) (Auto) 38.8 % (45.0-75.0) L Lymphocytes (%) (Auto) 45.6 % (20.0-45.0) H Monocytes (%) (Auto) 10.9 % (1.0-10.0) H Eosinophils (%) (Auto) 3.5 % (0.0-3.0) H Basophils (%) (Auto) 1.2 % (0.0-2.0) Sodium Level 140 MMOL/L (136-145) Potassium Level 3.5 MMOL/L (3.5-5.1) Chloride Level 106 MMOL/L (98-107) Carbon Dioxide Level 28 MMOL/L (21-32) Anion Gap 6 mmol/L (5-15) Blood Urea Nitrogen 21 mg/dL (7-18) H Creatinine 1.5 MG/DL (0.55-1.30) H Estimat Glomerular Filtration Rate 41.8 mL/min (>60) Glucose Level 94 MG/DL (74-106) Calcium Level 8.3 MG/DL (8.5-10.1) L Pro-B-Type Natriuretic Peptide 60 pg/mL (0-125) Triglycerides Level 63 MG/DL (30-150) Cholesterol Level 194 MG/DL (< 200) LDL Cholesterol 120 mg/dL (<100) H HDL Cholesterol 55 MG/DL (40-60) Cholesterol/HDL Ratio 3.5 (3.3-4.4) Height (Feet): 5 Height (Inches): 8.00 Weight (Pounds): 272 Medications Current Medications Medications (Trade) Dose Ordered Sig/Clyde Route PRN Reason Start Time Stop Time Status Last Admin Dose Admin Acetaminophen (Tylenol) 650 mg Q4H PRN ORAL Temp >100.5 02/02/20 09:15 03/03/20 09:14 02/03/20 11:06 Acetaminophen (Tylenol) 650 mg Q4H PRN ORAL Mild Pain (Pain Scale 1-3) 02/02/20 09:15 03/03/20 09:14 Albuterol/ Ipratropium (Albuterol/ Ipratropium) 3 ml Q4HR PRN HHN Shortness of Breath 02/02/20 09:15 02/07/20 09:14 Bisacodyl (Dulcolax) 10 mg DAILYPRN PRN RECTAL Constipation 02/02/20 09:15 05/02/20 09:14 Clonidine HCl (Catapres Tab) 0.1 mg Q6H PRN ORAL htn 02/02/20 15:30 05/02/20 15:29 Dextrose (Dextrose 50%) 25 ml Q30M PRN IV Hypoglycemia 02/02/20 09:15 05/02/20 09:14 Dextrose (Dextrose 50%) 50 ml Q30M PRN IV Hypoglycemia 02/02/20 09:15 05/02/20 09:14 Diphenhydramine HCl (Benadryl) 25 mg Q6H PRN ORAL Itching/Pruritis 02/02/20 09:15 03/03/20 09:14 Enoxaparin Sodium (Lovenox) 40 mg Q24H SUBQ 02/02/20 11:00 05/02/20 10:59 Furosemide (Lasix) 40 mg DAILY IV 02/03/20 09:00 03/03/20 09:59 02/03/20 09:16 Hydralazine HCl (Apresoline) 25 mg BID ORAL 02/02/20 18:00 05/02/20 17:59 02/03/20 09:16 Hydralazine HCl (Apresoline) 50 mg Q6H PRN ORAL htn 02/02/20 15:30 05/02/20 15:29 Hydromorphone HCl (Dilaudid) 1 mg Q4HR PRN IVP Moderate Pain (Pain Scale 4-6) 02/02/20 09:15 02/09/20 09:14 Losartan Potassium (Cozaar) 100 mg DAILY ORAL 02/03/20 09:00 03/04/20 08:59 02/03/20 09:15 Magnesium Hydroxide (Mom) 30 ml HSPRN PRN ORAL Constipation 02/02/20 09:15 03/03/20 09:14 Morphine Sulfate (Morphine Sulfate) 2 mg Q4HR PRN IVP Moderate Pain (Pain Scale 4-6) 02/02/20 09:15 02/09/20 09:14 Ondansetron HCl (Zofran) 4 mg Q6H PRN IVP Nausea & Vomiting 02/02/20 09:15 03/03/20 09:14 Polyethylene Glycol (Miralax) 17 gm DAILYPRN PRN ORAL Constipation 02/02/20 09:15 03/03/20 09:14 Regadenoson (Lexiscan) 0.4 mg ONCE PRN IV stress test 02/03/20 13:15 02/05/20 13:14 Temazepam (Restoril) 15 mg DAILYPRN PRN ORAL Insomnia 02/02/20 09:15 02/09/20 09:14 Zolpidem Tartrate (Ambien) 5 mg DAILYPRN PRN ORAL Insomnia 02/02/20 09:15 02/09/20 09:14 Assessment/Plan Diagnosis Porter I: #Kacie on CKD- likely due to CRS1 #acute on chronic CHF #HTN #CVA # COPD - lasix 40mg Iv BID - strict I&Os - monitor weights - 2d echo - amlodipine 10mg daily - losartan 100mg daily - hold for cr continues to rise - hydralazine 25mg Saturnino Ag M.D. Feb 03, 2020 14:01
[2020-02-03 16:00] VITALS: BP 136/71
[2020-02-03] MEDS: HYDROmorphone 1mg/ml Carpuject IVP PRN (18:47)
--- NOTE | 2020-02-03 19:25 | NUR ---
NURSE HAND-OFF REPORT: Important Events on Shift: Pt scheduled for Lexiscan tomorrow. Patient Status: Stable Diet: Low Sodium Pending Orders: Pending Results/Labs: Pending MD notification: Latest Vital Signs: Temperature 98.1 , Pulse 69 , B/P 136 /71 , Respiratory Rate 18 , O2 SAT 98 , Room Air, O2 Flow Rate . Vital Sign Comment: EKG Rhythm: Sinus Rhythm Rhythm change?: N MD Notified?: - MD Response: Latest Gutierrez Fall Score: 70 Fall Risk: High Risk Safety Measures: Call light Within Reach, Bed Alarm Zone 1, Side Rails Side Rails x2, Bed position Low and Locked. Fall Precautions: Yellow Socks Yellow Gown Door Sign Patient Fall Education Report given to Marjorie.
[2020-02-03 20:00] VITALS: BP 152/96
[2020-02-03] MEDS ORDERED: LOSARTAN POTAS100 MG ORAL (20:21)
--- NOTE | 2020-02-03 20:39 | NUR ---
NURSE NOTES: Received patient report from CATHLEEN Hernandez. Patient shows no signs of distress and 4/10 pain. She was given 1 mg dilaudid @ 1645. Patient is AO x4. SCDs on. IV is patent and intact. There are no signs of erythema, infiltration, or bleeding. Bed is in the lowest position, call light is within reach, side rails up x3. Patient is on room air with no signs of respiratory distress. Will continue to monitor.
[2020-02-04] VITALS: BP 121/61
[2020-02-04 04:00] VITALS: BP 122/63
[2020-02-04 07:03] LABS: CALCIUM 8.4 MG/DL (8.5-10.1); CREATININE 1.4 MG/DL (0.55-1.30); PHOSPHORUS 3.3 MG/DL (2.5-4.9); POTASSIUM 3.5 MMOL/L (3.5-5.1)
--- NOTE | 2020-02-04 07:44 | NUR ---
NURSE HAND-OFF REPORT: Important Events on Shift:[NA] Patient Status: [NA] Diet: []NPO Pending Orders: [Lexiscan] Pending Results/Labs:[NA] Pending MD notification:[]NA Latest Vital Signs: Temperature 99.5 , Pulse 66 , B/P 122 /63 , Respiratory Rate 16 , O2 SAT 96 , Room Air, O2 Flow Rate . Vital Sign Comment: [] NA EKG Rhythm: Sinus Rhythm Rhythm change?: N MD Notified?: - MD Response: Latest Gutierrez Fall Score: 70 Fall Risk: High Risk Safety Measures: Call light Within Reach, Bed Alarm Zone 1, Side Rails Side Rails x2, Bed position Low and Locked. Fall Precautions: Yellow Socks Yellow Gown Door Sign Patient Fall Education Report given to [CATHLEEN Crow].
--- NOTE | 2020-02-04 07:46 | NUR ---
NURSE NOTES: Received report from Marjorie/RN, Observed patient awake, lying semi-alberto's, resting comfortably. On room air, no acute distress/SOB noted, Breathing even and unlabored. AAO x4. able to make needs known, Denies pain at this time. NPO since midnight for Lexiscan. IV right Wrist patent and intact. Bed in low position and locked, Call light within reach. Encouraged to use call light when needed. Will continue plan of care
[2020-02-04 08:00] VITALS: BP 149/79
--- NOTE | 2020-02-04 08:30 | CDS Physician Query ---
Clarification is required for compliance, coding accuracy, and to reflect severity of illness for this patient Dear Dr. Balbuena Date: CDS Name: Paramjit Hayden "Heart Failure / CHF" documented in by Sree Murrieta and Dr. Gibbs #Amalia on CKD- likely due to CRS1 #acute on chronic CHF #HTN #CVA - lasix 40mg Iv BID - strict I&Os # COPD documented by Bernie on 02-03-20 History of congestive heart failure. Echocardiogram has already been performed which showed ejection fraction of 60%. Original EKG shows sinus rhythm with LVH. Documented by Dr. Balbuena on 02-03-20 Please Clarify: Type [] Systolic [] Diastolic [] Systolic & Diastolic (Combined) [] Other: Present on Admission: [] Yes [] No [] Clinically Undetermined Physician signature Date Please also document in your Progress Notes and/or Discharge Summary and indicate if the condition was present on admission. MTDD
[2020-02-04] MEDS: Losartan 50mg tab ORAL SCH (08:53)
[2020-02-04] MEDS: HydrALAZINE 25mg tab ORAL SCH (08:53)
--- NOTE | 2020-02-04 10:05 | General Progress Note ---
Subjective Constitutional: Denies: no symptoms, chills, diaphoresis, fever, malaise, weakness, other HEENT: Denies: no symptoms, eye pain, blurred vision, tearing, double vision, ear pain, ear discharge, nose pain, nose congestion, throat pain, throat swelling, mouth pain, mouth swelling, other Cardiovascular: Denies: no symptoms, chest pain, edema, irregular heart rate, lightheadedness, palpitations, syncope, other Respiratory: Denies: no symptoms, cough, orthopnea, shortness of breath, SOB with excertion, SOB at rest, sputum, stridor, wheezing, other Gastrointestinal/Abdominal: Denies: no symptoms, abdomen distended, abdominal pain, black stools, tarry stools, blood in stool, constipated, diarrhea, difficulty swallowing, nausea, poor appetite, poor fluid intake, rectal bleeding, vomiting, other Genitourinary: Denies: no symptoms, burning, discharge, frequency, flank pain, hematuria, incontinence, pain, urgency, other Neurologic/Psychiatric: Reports: tingling, weakness; Denies: no symptoms, anxiety, depressed, emotional problems, headache, numbness, paresthesia, pre- existing deficit, seizure, tremors, other Endocrine: Denies: no symptoms, excessive sweating, flushing, intolerance to cold, intolerance to heat, increased hunger, increased thirst, increased urine, unexplained weight gain, unexplained weight loss, other Hematologic/Lymphatic: Denies: no symptoms, anemia, easy bleeding, easy b ruising, other Allergies: Coded Allergies: GLUTEN (Verified Allergy, Intermediate, 09/25/18) report Nut Tree (Verified Allergy, Intermediate, 09/25/18) breaks out in rash ASPIRIN (Verified Allergy, Unknown, 09/25/18) IODINE (Verified Allergy, Unknown, 09/25/18) PENICILLINS (Verified Allergy, Unknown, 09/25/18) SHELLFISH DERIVED (Verified Allergy, Unknown, 09/25/18) SULFA (SULFONAMIDE ANTIBIOTICS) (Verified Allergy, Unknown, 09/25/18) Uncoded Allergies: IV CONTRAST (Allergy, Unknown, 02/02/20) PENICILLIN (Allergy, Unknown, 02/02/20) SULFA (Allergy, Unknown, 02/02/20) Subjective no acute events overnight. Patient complains of neuropathy in LE which is chronic. Pending lexiscan today. Objective Last 24 Hour Vital Signs Date Time Temp Pulse Resp B/P (MAP) Pulse Ox O2 Delivery O2 Flow Rate FiO2 02/04/20 08:53 149/79 02/04/20 08:53 149/79 02/04/20 08:00 97.7 69 18 149/79 (102) 97 02/04/20 04:00 99.5 66 16 122/63 (82) 96 02/04/20 04:00 66 02/04/20 00:00 66 02/04/20 00:00 98.8 68 16 121/61 (81) 95 02/03/20 21:00 Room Air 02/03/20 20:00 99.1 70 20 152/96 (114) 95 02/03/20 20:00 68 02/03/20 19:17 98.1 02/03/20 17:20 136/71 02/03/20 16:00 69 02/03/20 16:00 98.1 69 18 136/71 (92) 98 02/03/20 12:00 63 02/03/20 12:00 97.9 65 20 143/74 (97) 97 Intake and Output 02/03/20 02/04/20 19:00 07:00 Intake Total 940 ml Output Total 600 ml 200 ml Balance 340 ml -200 ml Intake Oral 940 ml Output Urine Total 600 ml 200 ml # Voids 2 2 Laboratory Tests 02/04/20 05:30: Sodium Level 138, Potassium Level 3.5, Chloride Level 105, Carbon Dioxide Level 29, Anion Gap 4L, Blood Urea Nitrogen 21H, Creatinine 1.4H, Estimat Glomerular Filtration Rate 45.3, Glucose Level 98, Calcium Level 8.4L, Phosphorus Level 3.3, Magnesium Level 2.0 Height (Feet): 5 Height (Inches): 8.00 Weight (Pounds): 272 General Appearance: no apparent distress, obese, alert oriented x3 EENT: PERRL/EOMI, normal ENT inspection Neck: non-tender, supple Cardiovascular: normal rate, regular rhythm, no JVD Respiratory/Chest: lungs clear, normal breath sounds, no respiratory distress Abdomen: normal bowel sounds, non tender, soft Edema: no edema noted Arm (L), no edema noted Arm (R), no edema noted Leg (L), no edema noted Leg (R), no edema noted Pedal (L), no edema noted Pedal (R), no edema noted Generalized Neurologic: minute clerk for basic traffic II-XII grossly normal, oriented x 3 Assessment/Plan Status: stable Assessment/Plan: 70 year old female with multiple medical problems presented with bilateral LE weakness and swelling. #BL LE weakness- multifactorial- imagining negative for acute pathology admit PT/OT out of bed to chair #Hypertensive emergency- possible end organ damage (KACIE) -Hold home HCTZ - continue losartan 100 mg daily Amlodipine 10- patient refusing- stop Hydralazine prn . hydralazine 50 TID, cozzar 100 reyna, clonidine prn #KACIE- vs KACIE on CKD -monitor renal function -Nephrology consult -improving #History of CVA statin she is allergic to ASA #CHF- mild exacerbation. diastolic #chest pain, ACS ruled out tele 2d echo- reviewed ef 60% f/u stress test pending gentle diuresis with lasix 40 mg iv daily monitor electrolytes cardiology consult #Hypokalemia replace prn #Obesity counselled to lose weight, life style modifications offered vte ppx: lovenox diet: cardiac Code status: full code I spent 41 minutes on this encounter. 25 minutes spent on counselling and care coordination Time may of note may not reflect time patient was seen. Diogenes Kent D.O Feb 04, 2020 10:05
[2020-02-04] MEDS ORDERED: HydrALAZINE 25mg tab ORAL SCH (10:45)
[2020-02-04] MEDS: Enoxaparin 40mg Inj SUBQ SCH (11:00)
--- NOTE | 2020-02-04 11:50 | Cardiac Electrophysiology PN ---
Assessment/Plan Assessment/Plan 1. Chest pain. The patient was ruled out for myocardial infarction with serial cardiac enzymes. Echocardiogram Nl EF 60%. Stress test results from today is pending 2. Accelerated hypertension. Refusing amlodipine for leg edema. On Lasix 40 mg IV daily. and hydralazine 25 mg b.i.d. and Cozaar 100 daily The patient also on p.r.n. clonidine as p.r.n. hydralazine as well. 3. History of congestive heart failure. Echocardiogram showed ejection fraction of 60%. EKG shows sinus rhythm with LVH. 4. History of CVA with left-sided hemiparesis. DW RN Subjective Subjective Feeling better. No CP. Just had stress test today. Results pending Objective Last 24 Hour Vital Signs Date Time Temp Pulse Resp B/P (MAP) Pulse Ox O2 Delivery O2 Flow Rate FiO2 02/04/20 11:02 164/105 02/04/20 09:00 Room Air 02/04/20 08:53 149/79 02/04/20 08:53 149/79 02/04/20 08:00 65 02/04/20 08:00 97.7 69 18 149/79 (102) 97 02/04/20 04:00 99.5 66 16 122/63 (82) 96 02/04/20 04:00 66 02/04/20 00:00 66 02/04/20 00:00 98.8 68 16 121/61 (81) 95 02/03/20 21:00 Room Air 02/03/20 20:00 99.1 70 20 152/96 (114) 95 02/03/20 20:00 68 02/03/20 19:17 98.1 02/03/20 17:20 136/71 02/03/20 16:00 69 02/03/20 16:00 98.1 69 18 136/71 (92) 98 02/03/20 12:00 63 02/03/20 12:00 97.9 65 20 143/74 (97) 97 Intake and Output 02/03/20 02/04/20 19:00 07:00 Intake Total 940 ml Output Total 600 ml 200 ml Balance 340 ml -200 ml Intake Oral 940 ml Output Urine Total 600 ml 200 ml # Voids 2 2 Laboratory Tests Test 02/04/20 05:30 Sodium Level 138 MMOL/L (136-145) Potassium Level 3.5 MMOL/L (3.5-5.1) Chloride Level 105 MMOL/L (98-107) Carbon Dioxide Level 29 MMOL/L (21-32) Anion Gap 4 mmol/L (5-15) L Blood Urea Nitrogen 21 mg/dL (7-18) H Creatinine 1.4 MG/DL (0.55-1.30) H Estimat Glomerular Filtration Rate 45.3 mL/min (>60) Glucose Level 98 MG/DL (74-106) Calcium Level 8.4 MG/DL (8.5-10.1) L Phosphorus Level 3.3 MG/DL (2.5-4.9) Magnesium Level 2.0 MG/DL (1.8-2.4) Objective HEAD AND NECK: No JVD. LUNGS: Clear. CARDIOVASCULAR: Regular S1 and S2 with no gallop. ABDOMEN: Soft. EXTREMITIES: Bilateral lower extremity edema. Trino Gray MD Feb 04, 2020 11:50
[2020-02-04 12:00] VITALS: BP 165/98
[2020-02-04] MEDS: HydrALAZINE 50mg tab ORAL SCH ×2 (13:24→21:36)
[2020-02-04] MEDS: HYDROmorphone 1mg/ml Carpuject IVP PRN (13:25)
[2020-02-04 16:00] VITALS: BP 163/93
--- NOTE | 2020-02-04 16:07 | NUR ---
CASE MANAGEMENT:REVIEW 02/04/20 SI: CHF EXACERBATION. KACIE. BLE WEAKNESS 98.1 74 18 165/98 96% ON RA BUN+21 CR+1.4 TROPONIN(-) X2 IS: IV LEXISCAN X1 HYDRALAZINE PO Q8 COZAAR PO QD IV LASIX QD LOVENOX SQ Q24 IV DILAUDID Q4HRS PRN : TELEMETRY STATUS
--- NOTE | 2020-02-04 17:01 | Nephrology Progress Note ---
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 Iv daily - strict I&Os - monitor weights - 2d echo noted - amlodipine 10mg daily - losartan 100mg daily - hold for cr continues to rise - hydralazine 25mg BID - clonidine 0.1 q6hr prn - stress test today Subjective ROS Limited/Unobtainable: No Constitutional: Reports: weakness HEENT: Denies: no symptoms, eye pain, blurred vision, tearing, double vision, ear pain, ear discharge, nose pain, nose congestion, throat pain, throat swelling, mouth pain, mouth swelling, other Genitourinary: Denies: no symptoms, burning, discharge, frequency, flank pain, hematuria, incontinence, pain, urgency, other Neurologic/Psychiatric: Denies: no symptoms, anxiety, depressed, emotional problems, headache, numbness, paresthesia, pre-existing deficit, seizure, tingling, tremors, weakness, other Subjective stress test today Cr downtrending Objective Objective Last 24 Hour Vital Signs Date Time Temp Pulse Resp B/P (MAP) Pulse Ox O2 Delivery O2 Flow Rate FiO2 02/04/20 13:24 165/98 02/04/20 12:00 85 02/04/20 12:00 98.1 74 18 165/98 (120) 96 02/04/20 11:02 164/105 02/04/20 09:00 Room Air 02/04/20 08:53 149/79 02/04/20 08:53 149/79 02/04/20 08:00 65 02/04/20 08:00 97.7 69 18 149/79 (102) 97 02/04/20 04:00 99.5 66 16 122/63 (82) 96 02/04/20 04:00 66 02/04/20 00:00 66 02/04/20 00:00 98.8 68 16 121/61 (81) 95 02/03/20 21:00 Room Air 02/03/20 20:00 99.1 70 20 152/96 (114) 95 02/03/20 20:00 68 02/03/20 19:17 98.1 02/03/20 17:20 136/71 Intake and Output 02/03/20 02/04/20 19:00 07:00 Intake Total 940 ml Output Total 600 ml 200 ml Balance 340 ml -200 ml Intake Oral 940 ml Output Urine Total 600 ml 200 ml # Voids 2 2 Laboratory Tests 02/04/20 05:30: Sodium Level 138, Potassium Level 3.5, Chloride Level 105, Carbon Dioxide Level 29, Anion Gap 4L, Blood Urea Nitrogen 21H, Creatinine 1.4H, Estimat Glomerular Filtration Rate 45.3, Glucose Level 98, Calcium Level 8.4L, Phosphorus Level 3.3, Magnesium Level 2.0 Height (Feet): 5 Height (Inches): 8.00 Weight (Pounds): 272 General Appearance: no apparent distress EENT: PERRL/EOMI Neck: non-tender, normal alignment Cardiovascular: normal peripheral pulses Respiratory/Chest: chest wall non-tender, lungs clear Abdomen: normal bowel sounds, non tender Saturnino Diaz M.D. Feb 04, 2020 17:01
--- NOTE | 2020-02-04 17:52 | NUR ---
INSURANCE CLINICALS/REVIEW FAXED TO [phone] [facility] [phone]
--- NOTE | 2020-02-04 19:10 | NUR ---
NURSE HAND-OFF REPORT: Important Events on Shift:pt gregorio Barrios Patient Status: stable Diet: low sodium Pending Orders: n/a Pending Results/Labs:n/a Pending MD notification:n/a Latest Vital Signs: Temperature 97.9 , Pulse 68 , B/P 163 /93 , Respiratory Rate 18 , O2 SAT 99 , Room Air, O2 Flow Rate . Vital Sign Comment: stable EKG Rhythm: Sinus Rhythm Rhythm change?: N MD Notified?: - MD Response: Latest Gutierrez Fall Score: 70 Fall Risk: High Risk Safety Measures: Call light Within Reach, Bed Alarm Zone 1, Side Rails Side Rails x2, Bed position Low and Locked. Fall Precautions: Yellow Socks Yellow Gown Door Sign Patient Fall Education Report given to Marjorie/CATHLEEN .
--- NOTE | 2020-02-04 19:56 | NUR ---
NURSE NOTES: Received patient report from CATHLEEN Crow. Patient shows no signs of distress or pain at the time. Patient is AO x4. IV is intact and patent. There are no signs of erythema, infiltration, or bleeding. Patient is on room air and shows no signs of respiratory distress. SCDs on . Bed is in the lowest position, call light is within reach, side rails up x3. Will continue plan of care.
[2020-02-04 20:00] VITALS: BP 147/81
--- NOTE | 2020-02-04 22:06 | NUR ---
NURSE NOTES: Patient had episode of V tach 11 beats. Patient denied chest pain. BP was 147/81. Dr. Gray was informed. He ordered BMP, Phosphate, and Calcium labs tomorrow morning.
[2020-02-05] VITALS (7 sets, daily range): BP systolic 129–179; BP diastolic 75–97
[2020-02-05] MEDS: HydrALAZINE 50mg tab ORAL SCH (05:59)
--- NOTE | 2020-02-05 07:33 | NUR ---
NURSE NOTES: Pt received from Marjorie Barnard RN. Pt in bed eating breakfast. No complaint of pain or distress at this time. Bed low and locked. Call light within reach.
[2020-02-05 07:42] LABS: BASOPHILS % (AUTO) 1.1 % (0.0-2.0); EOSINOPHILS % (AUTO) 2.8 % (0.0-3.0); HEMATOCRIT 37.1 % (37.0-47.0); HEMOGLOBIN 11.8 G/DL (12.0-16.0); LYMPHOCYTES % (AUTO) 41.5 % (20.0-45.0); MEAN CORPUSCULAR VOLUME 93 FL (80-99); MONOCYTES % (AUTO) 8.7 % (1.0-10.0); NEUTROPHILS % (AUTO) 45.9 % (45.0-75.0); PLATELET COUNT 170 K/UL (150-450); RED CELL DISTRIBUTION WIDTH 13.7 % (11.6-14.8); WHITE BLOOD COUNT 4.3 K/UL (4.8-10.8)
--- NOTE | 2020-02-05 07:44 | NUR ---
NURSE HAND-OFF REPORT: Important Events on Shift:[NA] Patient Status: [Full code] Diet: [Low sodium] Pending Orders: [NA] Pending Results/Labs:[NA] Pending MD notification:[] Latest Vital Signs: Temperature 99.1 , Pulse 70 , B/P 143 /75 , Respiratory Rate 20 , O2 SAT 95 , Room Air, O2 Flow Rate . Vital Sign Comment: [] EKG Rhythm: Sinus Rhythm Rhythm change?: N MD Notified?: - MD Response: Latest Gutierrez Fall Score: 70 Fall Risk: High Risk Safety Measures: Call light Within Reach, Bed Alarm Zone 1, Side Rails Side Rails x2, Bed position Low and Locked. Fall Precautions: Yellow Socks Yellow Gown Door Sign Patient Fall Education Report given to []CATHLEEN Lopez.
[2020-02-05 07:47] LABS: CALCIUM 8.9 MG/DL (8.5-10.1); CREATININE 1.4 MG/DL (0.55-1.30); PHOSPHORUS 3.4 MG/DL (2.5-4.9); POTASSIUM 3.7 MMOL/L (3.5-5.1)
[2020-02-05] MEDS: Enoxaparin 40mg Inj SUBQ SCH (08:00)
[2020-02-05] MEDS: Losartan 50mg tab ORAL SCH (08:06)
[2020-02-05] MEDS ORDERED: HydrALAZINE 25mg tab ORAL SCH ×2 (08:14→14:00)
[2020-02-05] MEDS: Nitroglycerin Subl 0.4mg tab SL PRN ×3 (09:20→09:40)
--- NOTE | 2020-02-05 09:51 | General Progress Note ---
Subjective Constitutional: Denies: no symptoms, chills, diaphoresis, fever, malaise, weakness, other HEENT: Denies: no symptoms, eye pain, blurred vision, tearing, double vision, ear pain, ear discharge, nose pain, nose congestion, throat pain, throat swelling, mouth pain, mouth swelling, other Cardiovascular: Denies: no symptoms, chest pain, edema, irregular heart rate, lightheadedness, palpitations, syncope, other Respiratory: Denies: no symptoms, cough, orthopnea, shortness of breath, SOB with excertion, SOB at rest, sputum, stridor, wheezing, other Gastrointestinal/Abdominal: Denies: no symptoms, abdomen distended, abdominal pain, black stools, tarry stools, blood in stool, constipated, diarrhea, difficulty swallowing, nausea, poor appetite, poor fluid intake, rectal bleeding, vomiting, other Genitourinary: Denies: no symptoms, burning, discharge, frequency, flank pain, hematuria, incontinence, pain, urgency, other Neurologic/Psychiatric: Denies: no symptoms, anxiety, depressed, emotional problems, headache, numbness, paresthesia, pre-existing deficit, seizure, tingling, tremors, weakness, other Endocrine: Denies: no symptoms, excessive sweating, flushing, intolerance to cold, intolerance to heat, increased hunger, increased thirst, increased urine, unexplained weight gain, unexplained weight loss, other Hematologic/Lymphatic: Denies: no symptoms, anemia, easy bleeding, easy bruising, other Allergies: Coded Allergies: GLUTEN (Verified Allergy, Intermediate, 09/25/18) report Nut Tree (Verified Allergy, Intermediate, 09/25/18) breaks out in rash ASPIRIN (Verified Allergy, Unknown, 09/25/18) IODINE (Verified Allergy, Unknown, 09/25/18) PENICILLINS (Verified Allergy, Unknown, 09/25/18) SHELLFISH DERIVED (Verified Allergy, Unknown, 09/25/18) SULFA (SULFONAMIDE ANTIBIOTICS) (Verified Allergy, Unknown, 09/25/18) Uncoded Allergies: IV CONTRAST (Allergy, Unknown, 02/02/20) PENICILLIN (Allergy, Unknown, 02/02/20) SULFA (Allergy, Unknown, 02/02/20) Subjective no acute events overnight. Lexiscan completed yesterday, results pending. BP elevated due to back pain, now improved. Objective Last 24 Hour Vital Signs Date Time Temp Pulse Resp B/P (MAP) Pulse Ox O2 Delivery O2 Flow Rate FiO2 02/05/20 09:40 142/70 02/05/20 09:30 152/51 02/05/20 09:20 146/90 02/05/20 08:06 179/90 02/05/20 08:00 78 02/05/20 08:00 96.8 79 20 179/90 (119) 96 02/05/20 05:59 143/75 02/05/20 04:00 99.1 78 20 143/75 (97) 95 02/05/20 04:00 70 02/05/20 00:00 73 02/05/20 00:00 98.1 75 16 134/75 (94) 97 02/04/20 21:36 147/81 02/04/20 21:00 Room Air 02/04/20 20:00 97.7 72 20 147/81 (103) 97 02/04/20 16:00 97.9 72 18 163/93 (116) 99 02/04/20 16:00 68 02/04/20 13:24 165/98 02/04/20 12:00 85 02/04/20 12:00 98.1 74 18 165/98 (120) 96 02/04/20 11:02 164/105 Intake and Output 02/04/20 02/05/20 19:00 07:00 Intake Total 840 ml Output Total 900 ml 800 ml Balance -60 ml -800 ml Intake Oral 840 ml Output Urine Total 900 ml 800 ml # Voids 2 Laboratory Tests 02/05/20 06:14: White Blood Count 4.3L, Red Blood Count 4.00L, Hemoglobin 11.8L, Hematocrit 37. 1, Mean Corpuscular Volume 93, Mean Corpuscular Hemoglobin 29.5, Mean Corpuscular Hemoglobin Concent 31.8L, Red Cell Distribution Width 13.7, Platelet Count 170, Mean Platelet Volume 11.5H, Neutrophils (%) (Auto) 45.9, Lymphocytes (%) (Auto) 41.5, Monocytes (%) (Auto) 8.7, Eosinophils (%) (Auto) 2.8, Basophils (%) (Auto) 1.1, Sodium Level 138, Potassium Level 3.7, Chloride Level 103, Carbon Dioxide Level 30, Anion Gap 5, Blood Urea Nitrogen 20H, Creatinine 1.4H, Estimat Glomerular Filtration Rate 45.3, Glucose Level 103, Calcium Level 8.9, Phosphorus Level 3.4, Magnesium Level 2.0 Height (Feet): 5 Height (Inches): 8.00 Weight (Pounds): 272 General Appearance: no apparent distress, morbidly obese, alert oriented x3 EENT: PERRL/EOMI Cardiovascular: normal rate, regular rhythm, no JVD Respiratory/Chest: lungs clear, normal breath sounds, no respiratory distress Abdomen: normal bowel sounds, non tender, soft Extremities: normal range of motion, non-tender Edema: trace edema 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 #BL LE weakness- multifactorial- imagining negative for acute pathology admit PT/OT out of bed to chair #Hypertensive emergency- possible end organ damage (KACIE) -Hold home HCTZ - continue losartan 100 mg daily Amlodipine 10- patient refusing- stop Hydralazine prn . hydralazine 50 TID, cozzar 100 reyna, clonidine prn #KACIE- vs KACIE on CKD -monitor renal function -Nephrology consult -improving #History of CVA statin she is allergic to ASA #CHF- mild exacerbation. diastolic #chest pain, ACS ruled out tele 2d echo- reviewed ef 60% f/u stress test completed, test results still pending gentle diuresis with lasix 40 mg iv daily monitor electrolytes cardiology consult #Hypokalemia replace prn #Obesity counselled to lose weight, life style modifications offered vte ppx: lovenox diet: cardiac Code status: full code I spent 31 minutes on this encounter. 21 minutes spent on counselling and care coordination Time may of note may not reflect time patient was seen. Diogenes Kent D.O Feb 05, 2020 09:50
[2020-02-05] MEDS ORDERED: HydrALAZINE 50mg tab ORAL PRN (10:00)
--- NOTE | 2020-02-05 10:30 | NUR ---
NURSE NOTES: Earlier pt reported 8/10 chest pain radiating to left arm and left leg. Informed Dr. Gray who ordered nitro x3. Gave all three doses and pain did not resolve. Pt states she does not want any tylenol to ease some of the pain. No pain in jaw or shoulder nor upper abdominal pain/burning. Dr. Gray informed that nitro Sl x 3 was not successful. Ordered to continue monitoring pain and inform him once nuclear med updates final perfusion results.
--- NOTE | 2020-02-05 11:04 | Cardiac Electrophysiology PN ---
Assessment/Plan Assessment/Plan 1. Chest pain. The patient was ruled out for myocardial infarction with serial cardiac enzymes. Echocardiogram Nl EF 60%. Stress test results pending 2. Accelerated hypertension. Refusing amlodipine for leg edema. Increase hydralazine to 50 q 8hr and add Lopressor 25 bid. On Cozaar 100 daily The patient also on p.r.n. clonidine as p.r.n. hydralazine as well. 3. Nonsustained VT 11 beats. No syncope or prior NM. Awaiting stress test result. Add Lopressor 25 bid 4. History of congestive heart failure. Echocardiogram showed ejection fraction of 60%. EKG shows sinus rhythm with LVH. 5. History of CVA with left-sided hemiparesis. 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 No CP. Had stress test yesterday. Results pending. Had 11 beats of V tach yesterday Objective Last 24 Hour Vital Signs Date Time Temp Pulse Resp B/P (MAP) Pulse Ox O2 Delivery O2 Flow Rate FiO2 02/05/20 09:40 142/70 02/05/20 09:30 152/51 02/05/20 09:20 146/90 02/05/20 09:00 Room Air 02/05/20 08:06 179/90 02/05/20 08:00 78 02/05/20 08:00 96.8 79 20 179/90 (119) 96 02/05/20 05:59 143/75 02/05/20 04:00 99.1 78 20 143/75 (97) 95 02/05/20 04:00 70 02/05/20 00:00 73 02/05/20 00:00 98.1 75 16 134/75 (94) 97 02/04/20 21:36 147/81 02/04/20 21:00 Room Air 02/04/20 20:00 97.7 72 20 147/81 (103) 97 02/04/20 16:00 97.9 72 18 163/93 (116) 99 02/04/20 16:00 68 02/04/20 13:24 165/98 02/04/20 12:00 85 02/04/20 12:00 98.1 74 18 165/98 (120) 96 02/04/20 11:02 164/105 Intake and Output 02/04/20 02/05/20 19:00 07:00 Intake Total 840 ml Output Total 900 ml 800 ml Balance -60 ml -800 ml Intake Oral 840 ml Output Urine Total 900 ml 800 ml # Voids 2 Laboratory Tests Test 02/05/20 06:14 White Blood Count 4.3 K/UL (4.8-10.8) L Red Blood Count 4.00 M/UL (4.20-5.40) L Hemoglobin 11.8 G/DL (12.0-16.0) L Hematocrit 37.1 % (37.0-47.0) Mean Corpuscular Volume 93 FL (80-99) Mean Corpuscular Hemoglobin 29.5 PG (27.0-31.0) Mean Corpuscular Hemoglobin Concent 31.8 G/DL (32.0-36.0) L Red Cell Distribution Width 13.7 % (11.6-14.8) Platelet Count 170 K/UL (150-450) Mean Platelet Volume 11.5 FL (6.5-10.1) H Neutrophils (%) (Auto) 45.9 % (45.0-75.0) Lymphocytes (%) (Auto) 41.5 % (20.0-45.0) Monocytes (%) (Auto) 8.7 % (1.0-10.0) Eosinophils (%) (Auto) 2.8 % (0.0-3.0) Basophils (%) (Auto) 1.1 % (0.0-2.0) Sodium Level 138 MMOL/L (136-145) Potassium Level 3.7 MMOL/L (3.5-5.1) Chloride Level 103 MMOL/L (98-107) Carbon Dioxide Level 30 MMOL/L (21-32) Anion Gap 5 mmol/L (5-15) Blood Urea Nitrogen 20 mg/dL (7-18) H Creatinine 1.4 MG/DL (0.55-1.30) H Estimat Glomerular Filtration Rate 45.3 mL/min (>60) Glucose Level 103 MG/DL (74-106) Calcium Level 8.9 MG/DL (8.5-10.1) Phosphorus Level 3.4 MG/DL (2.5-4.9) Magnesium Level 2.0 MG/DL (1.8-2.4) Objective HEAD AND NECK: No JVD. LUNGS: Clear. CARDIOVASCULAR: Regular S1 and S2 with no gallop. ABDOMEN: Soft. EXTREMITIES: Bilateral lower extremity edema. Trino Gray MD Feb 05, 2020 11:04
[2020-02-05] MEDS ORDERED: PREDNISOLONE ACE5 ML OP (11:25)
[2020-02-05] MEDS ORDERED: ATROPINE SULFAT15 ML OP (11:25)
--- NOTE | 2020-02-05 11:53 | NUR ---
CASE MANAGEMENT:REVIEW 02/05/20 SI: CHEST PAIN. ACC HTN. CHF H/O CVA 96.8 79 20 179/90 96% on ra HGB-11.8 BUN+20 CR+1.4 IS:LOPRESSOR PO Q12 HYDRALAZINE PO Q8HRS COZAAR PO QD IV LASIX QD : TELEMETRY STATUS DCP; FROM [facility]
--- NOTE | 2020-02-05 12:00 | NUR ---
DISCHARGE PLANNING STRESS TEST WAS COMPLETED YESTERDAY STRESS RESULTS STILL PENDING CALLED CARDIOLOGY DEPARTMENT [id number] AND [id number] AND 52 ~ NO ANSWER
--- NOTE | 2020-02-05 12:43 | NUR ---
RD ASSESSMENT & RECOMMENDATIONS SEE CARE ACTIVITY FOR COMPLETE ASSESSMENT DAILY ESTIMATED NEEDS: Needs based on obesity, cardiac/ 79.5kg 20-25 kcals/kg 7288-3949 total kcals 1-1.5 g protein/kg 80-120 g total protein 20-22 mL/kg 3693-8684 total fluid mLs NUTRITION DIAGNOSIS: Decreased sodium and fat intake needs R/T cardiac dx, morbid obesity as evidenced by h/o CVA, CHF, HTN, pt on diuretics, BMI >40. CURRENT DIET:LOW NA PO DIET RECOMMENDATIONS: CARDIAC/ texture as tolerated or per DIRECT CASTING OPERATOR ADDITIONAL RECOMMENDATIONS: * Daily calibrated bedscale or standing wt * Monitor lytes w/ Lasix, replete as needed * Per pt: allergic to tomatoes/tomato sauce, walnuts and hazelnuts, shellfish. Gluten may not be a true allergy (pt reports has non-gluten desserts at times without any side effects) * Monitor tolerance to current texture, need for DIRECT CASTING OPERATOR eval: h/o CVA
--- NOTE | 2020-02-05 13:01 | Nephrology Progress Note ---
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 - strict I&Os - monitor weights - 2d echo noted - amlodipine 10mg daily - losartan 100mg daily - hold for cr continues to rise - hydralazine 25mg BID - clonidine 0.1 q6hr prn - s/p stress test Subjective ROS Limited/Unobtainable: No Constitutional: Reports: weakness HEENT: Denies: no symptoms, eye pain, blurred vision, tearing, double vision, ear pain, ear discharge, nose pain, nose congestion, throat pain, throat swelling, mouth pain, mouth swelling, other Genitourinary: Denies: no symptoms, burning, discharge, frequency, flank pain, hematuria, incontinence, pain, urgency, other Neurologic/Psychiatric: Denies: no symptoms, anxiety, depressed, emotional problems, headache, numbness, paresthesia, pre-existing deficit, seizure, tingling, tremors, weakness, other Subjective Cr downtrending s/p stress test Objective Objective Last 24 Hour Vital Signs Date Time Temp Pulse Resp B/P (MAP) Pulse Ox O2 Delivery O2 Flow Rate FiO2 02/05/20 12:00 98.8 68 18 129/76 (93) 97 02/05/20 12:00 85 02/05/20 09:40 142/70 02/05/20 09:30 152/51 02/05/20 09:20 146/90 02/05/20 09:00 Room Air 02/05/20 08:06 179/90 02/05/20 08:00 78 02/05/20 08:00 96.8 79 20 179/90 (119) 96 02/05/20 05:59 143/75 02/05/20 04:00 99.1 78 20 143/75 (97) 95 02/05/20 04:00 70 02/05/20 00:00 73 02/05/20 00:00 98.1 75 16 134/75 (94) 97 02/04/20 21:36 147/81 02/04/20 21:00 Room Air 02/04/20 20:00 97.7 72 20 147/81 (103) 97 02/04/20 16:00 97.9 72 18 163/93 (116) 99 02/04/20 16:00 68 10/20/20 13:24 165/98 Intake and Output 02/04/20 02/05/20 19:00 07:00 Intake Total 840 ml Output Total 900 ml 800 ml Balance -60 ml -800 ml Intake Oral 840 ml Output Urine Total 900 ml 800 ml # Voids 2 Laboratory Tests 02/05/20 06:14: White Blood Count 4.3L, Red Blood Count 4.00L, Hemoglobin 11.8L, Hematocrit 37.1, Mean Corpuscular Volume 93, Mean Corpuscular Hemoglobin 29.5, Mean Corpuscular Hemoglobin Concent 31.8L, Red Cell Distribution Width 13.7, Platelet Count 170, Mean Platelet Volume 11.5H, Neutrophils (%) (Auto) 45.9, Lymphocytes (%) (Auto) 41.5, Monocytes (%) (Auto) 8.7, Eosinophils (%) (Auto) 2.8, Basophils (%) (Auto) 1.1, Sodium Level 138, Potassium Level 3.7, Chloride Level 103, Carbon Dioxide Level 30, Anion Gap 5, Blood Urea Nitrogen 20H, Creatinine 1.4H, Estimat Glomerular Filtration Rate 45.3, Glucose Level 103, Calcium Level 8.9, Phosphorus Level 3.4, Magnesium Level 2.0 Height (Feet): 5 Height (Inches): 8.00 Weight (Pounds): 272 Saturnino Diaz M.D. Feb 05, 2020 13:01
[2020-02-05] MEDS: HydrALAZINE 25mg tab ORAL SCH ×2 (14:36→21:14)
--- NOTE | 2020-02-05 15:18 | NUR ---
HAND-OFF: Report given to Conor RN. Pt in bed alert and oriented. Complains of 5/10 chest pain, endorsed to RN's. last BP 140, 50mg hydralazine give. Pt waiting on results of lexiscan from yesterday. Endorsed to tell Dr. Gray once results are received.
--- NOTE | 2020-02-05 15:19 | NUR ---
NURSE NOTES: Received report from CATHLEEN Lopez. Patient in bed resting, no active s/s cardiac, respiratory distress noticed at this time. Patient AOx4, SR with HR 85, c/o chest pain since morning 06/24 now, MD aware, no new order received at this time. Patient lower extremities tender to touch, SCD off at this time, Dr. Kent made aware, awaiting for callback. Will continue to monitor.
--- NOTE | 2020-02-05 15:58 | Diagnostic Imaging Report ---
Indications: Chest pain Technique: See cardiology report for details of LexiScan stress testing. During LexiScan infusion, IV administration 30.5 mCi 99 M technetium Myoview. SPECT and planar images obtained. SPECT images gated to 8 phases of the cardiac cycle were also obtained, and reformatted into cine images for evaluation of ejection fraction. On the subsequent day, resting images obtained using IV administration 10 mCi 99 M technetium Myoview. Comparison: None Findings: Calculated ejection fraction of 62%. No definite focal fixed or reversible perfusion defect is appreciated. No discrete abnormality appreciated on the generated defect blackout maps. IMPRESSION: Nonischemic clinical response to pharmacologic stress, per cardiology report Nonischemic electrocardiographic response to pharmacologic stress, per cardiology report No imaging findings to suggest ischemia, at level of stress achieved. Calculated post stress ejection fraction 62%
--- NOTE | 2020-02-05 16:54 | NUR ---
NURSE NOTES: Dr. Kent notified regarding bilateral lower leg pain, tender to touch and Dr. Kent ordered 300mg gabapentin one time a day. Additionally, Dr. Kent stated that if stress test is normal then discharge will occur tomorrow.
--- NOTE | 2020-02-05 17:18 | NUR ---
NURSE NOTES: Dr. Gray made aware of result of Stress test, per MD, patient cleared from cardiology stand point. Order noted, entered, carried out. Dr. Kent made aware of result of stress test.
--- NOTE | 2020-02-05 19:20 | NUR ---
NURSE NOTES: Pt received from CATHLEEN Hayes and CATHLEEN Mckeon alert and oriented x4. On room air with no acute s/s of distress noted at the bedside. IV site asymptomatic and patent on R wrist 22g, saline lock. Bed in lowest position, bed alarm on. Call light and belongings within reach. engine monitor on - Sinus Rhythm (70s).
--- NOTE | 2020-02-05 19:20 | NUR ---
NURSE HAND-OFF REPORT: Important Events on Shift: Possible discharge tomorrow Patient Status: full code / stable condition Diet: low sodium Pending Orders: DVT Pending Results/Labs:[] Pending MD notification:[] Latest Vital Signs: Temperature 99.0 , Pulse 69 , B/P 130 /78 , Respiratory Rate 19 , O2 SAT 97 , Room Air, O2 Flow Rate . Vital Sign Comment: [] EKG Rhythm: Sinus Rhythm Rhythm change?: N MD Notified?: - MD Response: Latest Gutierrez Fall Score: 70 Fall Risk: High Risk Safety Measures: Call light Within Reach, Bed Alarm Zone 1, Side Rails Side Rails x2, Bed position Low and Locked. Fall Precautions: Yellow Socks Yellow Gown Door Sign Patient Fall Education Report given to Cachorro Burton RN.
--- NOTE | 2020-02-05 22:30 | NUR ---
NURSE NOTES: Pt's BP elevated at 1999 VS check - 174/97, RN administered scheduled Hydralazine 50 mg. Pt refused scheduled Metoprolol 25 mg. BP reassessed at 2230 - 162/85.
[2020-02-06] VITALS: BP 181/92
--- NOTE | 2020-02-06 01:34 | NUR ---
NURSE NOTES: Pt's BP elevated at 0000 VS check - 181/92, HR 72. Administered hydralazine 25 mg PRN at 0037, reassessed BP at 0132 - 164/87, HR 73.
[2020-02-06 01:36] VITALS: BP 164/87
[2020-02-06 04:00] VITALS: BP 160/99
[2020-02-06] MEDS: HydrALAZINE 25mg tab ORAL SCH (05:33)
--- NOTE | 2020-02-06 07:15 | NUR ---
NURSE HAND-OFF REPORT: Important Events on Shift: Pt was hypertensive at 1999 BP check and 0000 BP check, scheduled hydralazine given at 1999. Hydralazine PRN given at 0000. Pt denies chest pain. Patient Status: Stable Diet: Low Sodium Pending Orders: Venous Duplex to be done today Pending Results/Labs: n/a Pending MD notification: n/a Latest Vital Signs: Temperature 97.7 , Pulse 65 , B/P 160 /84 , Respiratory Rate 18 , O2 SAT 97 , Room Air, O2 Flow Rate . Vital Sign Comment: WNL EKG Rhythm: Sinus Rhythm Rhythm change?: N MD Notified?: - MD Response: Latest Gutierrez Fall Score: 70 Fall Risk: High Risk Safety Measures: Call light Within Reach, Bed Alarm Zone 1, Side Rails Side Rails x2, Bed position Low and Locked. Fall Precautions: Yes Yellow Socks Yellow Gown Door Sign Patient Fall Education Report given to CATHLEEN Jo.
[2020-02-06 07:42] LABS: CREATININE 1.5 MG/DL (0.55-1.30); POTASSIUM 3.4 MMOL/L (3.5-5.1)
[2020-02-06 07:52] LABS: BASOPHILS % (AUTO) 1.9 % (0.0-2.0); HEMATOCRIT 40.3 % (37.0-47.0); MEAN CORPUSCULAR VOLUME 91 FL (80-99); MONOCYTES % (AUTO) 10.2 % (1.0-10.0); NEUTROPHILS % (AUTO) 39.9 % (45.0-75.0); PLATELET COUNT 205 K/UL (150-450); RED BLOOD COUNT 4.42 M/UL (4.20-5.40); RED CELL DISTRIBUTION WIDTH 13.4 % (11.6-14.8); WHITE BLOOD COUNT 4.2 K/UL (4.8-10.8)
[2020-02-06 08:00] VITALS: BP 133/62
[2020-02-06] MEDS: Losartan 50mg tab ORAL SCH ×2 (08:43→08:59)
[2020-02-06] MEDS ORDERED: Furosemide 40mg tab ORAL SCH (09:00)
--- NOTE | 2020-02-06 09:01 | NUR ---
NURSE NOTES: Patient refused gabapentin, RN unable to undo in the emar due to MD discontinued medication. Emar will show administered but RN did not. Will notify pharmacy.
--- NOTE | 2020-02-06 09:57 | NUR ---
NURSE NOTES: Spoke to Dr Kent, said venous duplex will not be ordered. He will wait for results of foot and knee xray prior to discharge. He plans to discharge patient today.
[2020-02-06] MEDS ORDERED: COZAAR50 MG ORAL (10:06)
[2020-02-06] MEDS ORDERED: HYDRALAZINE HCL25 M1 ORAL (10:06)
[2020-02-06] MEDS ORDERED: GABAPENTIN100 MG ORAL (10:06)
--- NOTE | 2020-02-06 10:07 | Discharge Instructions ---
Discharge Instructions Discharge Instructions Diet: cardiac 2 GM Na, low fat, low fat, renal (80g protein, 2GM) Activity: up ad donna, light activity Follow Up Orders Please follow up with PCP in 1-2 weeks For Congestive Heart Failure Reminder Report to your physician any weight gain of 5 pounds or more in one week. Diogenes Kent D.O Feb 06, 2020 10:07
[2020-02-06] MEDS ORDERED: POTASSIUM CHLO20 ME1 ORAL (10:11)
[2020-02-06] MEDS ORDERED: FUROSEMIDE40 MG ORAL (10:11)
--- NOTE | 2020-02-06 10:30 | Nephrology Progress Note ---
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 - strict I&Os - monitor weights - 2d echo noted - amlodipine 10mg daily - losartan 100mg daily - hold for cr continues to rise - hydralazine 25mg BID - clonidine 0.1 q6hr prn - s/p stress test Subjective ROS Limited/Unobtainable: No Constitutional: Reports: weakness HEENT: Denies: no symptoms, eye pain, blurred vision, tearing, double vision, ear pain, ear discharge, nose pain, nose congestion, throat pain, throat swelling, mouth pain, mouth swelling, other Genitourinary: Denies: no symptoms, burning, discharge, frequency, flank pain, hematuria, incontinence, pain, urgency, other Neurologic/Psychiatric: Denies: no symptoms, anxiety, depressed, emotional problems, headache, numbness, paresthesia, pre-existing deficit, seizure, tingling, tremors, weakness, other Subjective Cr downtrending s/p stress test Objective Objective Last 24 Hour Vital Signs Date Time Temp Pulse Resp B/P (MAP) Pulse Ox O2 Delivery O2 Flow Rate FiO2 02/06/20 08:00 96.6 76 19 133/62 (85) 97 02/06/20 05:33 160/84 02/06/20 04:00 97.7 72 18 160/99 (119) 97 02/06/20 04:00 65 02/06/20 01:36 74 164/87 (112) 02/06/20 00:37 181/92 02/06/20 00:00 98.1 72 18 181/92 (121) 95 02/06/20 00:00 76 02/05/20 22:30 73 162/85 (110) 02/05/20 21:14 174/97 02/05/20 21:00 Room Air 02/05/20 20:00 78 02/05/20 20:00 98.1 75 20 174/97 (122) 95 02/05/20 16:00 72 02/05/20 16:00 99.0 69 19 130/78 (95) 97 02/05/20 14:36 140/76 02/05/20 12:00 98.8 68 18 129/76 (93) 97 02/05/20 12:00 85 Intake and Output 02/05/20 02/06/20 19:00 07:00 Intake Total 140 ml 250 ml Output Total 1200 ml 200 ml Balance -1060 ml 50 ml Intake Oral 140 ml 250 ml Output Urine Total 1200 ml 200 ml # Voids 3 3 Laboratory Tests 02/06/20 05:55: White Blood Count 4.2L, Red Blood Count 4.42, Hemoglobin 13.0, Hematocrit 40.3, Mean Corpuscular Volume 91, Mean Corpuscular Hemoglobin 29.5, Mean Corpuscular Hemoglobin Concent 32.3, Red Cell Distribution Width 13.4, Platelet Count 205, Mean Platelet Volume 9.9, Neutrophils (%) (Auto) 39.9L, Lymphocytes (%) (Auto) 45.0, Monocytes (%) (Auto) 10.2H, Eosinophils (%) (Auto) 3.0, Basophils (%) (Auto) 1.9, Sodium Level 138, Potassium Level 3.4L, Chloride Level 102, Carbon Dioxide Level 30, Anion Gap 6, Blood Urea Nitrogen 20H, Creatinine 1.5H, Estimat Glomerular Filtration Rate 41.8, Glucose Level 105, Calcium Level 9.0, Magnesium Level 2.0 Height (Feet): 5 Height (Inches): 8.00 Weight (Pounds): 272 Saturnino Diaz M.D. Feb 06, 2020 10:30
--- NOTE | 2020-02-06 10:32 | Nephrology Progress Note ---
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 - lasix 40mg PO daily - follow stress test results - strict I&Os - monitor weights - 2d echo noted - hold amlodipine given LE edema - losartan 100mg daily - hold for cr continues to rise - increase hydralazine 75mg TID - clonidine 0.1 q6hr prn - s/p stress test Subjective ROS Limited/Unobtainable: No Constitutional: Reports: weakness HEENT: Denies: no symptoms, eye pain, blurred vision, tearing, double vision, ear pain, ear discharge, nose pain, nose congestion, throat pain, throat swelling, mouth pain, mouth swelling, other Genitourinary: Denies: no symptoms, burning, discharge, frequency, flank pain, hematuria, incontinence, pain, urgency, other Neurologic/Psychiatric: Denies: no symptoms, anxiety, depressed, emotional problems, headache, numbness, paresthesia, pre-existing deficit, seizure, tingling, tremors, weakness, other Subjective BP elevated switched to hydralazine 75 TID holding amlodipine given le edema Cr stable at 1.5 switch to lasix 40- oral daily s/p stress test Objective Objective Last 24 Hour Vital Signs Date Time Temp Pulse Resp B/P (MAP) Pulse Ox O2 Delivery O2 Flow Rate FiO2 02/06/20 08:00 96.6 76 19 133/62 (85) 97 02/06/20 05:33 160/84 02/06/20 04:00 97.7 72 18 160/99 (119) 97 02/06/20 04:00 65 02/06/20 01:36 74 164/87 (112) 02/06/20 00:37 181/92 02/06/20 00:00 98.1 72 18 181/92 (121) 95 02/06/20 00:00 76 02/05/20 22:30 73 162/85 (110) 02/05/20 21:14 174/97 02/05/20 21:00 Room Air 02/05/20 20:00 78 02/05/20 20:00 98.1 75 20 174/97 (122) 95 02/05/20 16:00 72 02/05/20 16:00 99.0 69 19 130/78 (95) 97 02/05/20 14:36 140/76 02/05/20 12:00 98.8 68 18 129/76 (93) 97 02/05/20 12:00 85 Intake and Output 02/05/20 02/06/20 19:00 07:00 Intake Total 140 ml 250 ml Output Total 1200 ml 200 ml Balance -1060 ml 50 ml Intake Oral 140 ml 250 ml Output Urine Total 1200 ml 200 ml # Voids 3 3 Laboratory Tests 02/06/20 05:55: White Blood Count 4.2L, Red Blood Count 4.42, Hemoglobin 13.0, Hematocrit 40.3, Mean Corpuscular Volume 91, Mean Corpuscular Hemoglobin 29.5, Mean Corpuscular Hemoglobin Concent 32.3, Red Cell Distribution Width 13.4, Platelet Count 205, Mean Platelet Volume 9.9, Neutrophils (%) (Auto) 39.9L, Lymphocytes (%) (Auto) 45.0, Monocytes (%) (Auto) 10.2H, Eosinophils (%) (Auto) 3.0, Basophils (%) (Auto) 1.9, Sodium Level 138, Potassium Level 3.4L, Chloride Level 102, Carbon Dioxide Level 30, Anion Gap 6, Blood Urea Nitrogen 20H, Creatinine 1.5H, Estimat Glomerular Filtration Rate 41.8, Glucose Level 105, Calcium Level 9.0, Magnesium Level 2.0 Height (Feet): 5 Height (Inches): 8.00 Weight (Pounds): 272 General Appearance: no apparent distress, alert EENT: PERRL/EOMI, normal ENT inspection Neck: non-tender, normal alignment Cardiovascular: normal peripheral pulses, normal rate, regular rhythm Respiratory/Chest: chest wall non-tender, lungs clear Abdomen: non tender, soft Saturnino Diaz M.D. Feb 06, 2020 10:32
--- NOTE | 2020-02-06 10:46 | NUR ---
RADIOLOGY DEPT., CHEST X-RAY DONE.-P.DYE
--- NOTE | 2020-02-06 10:47 | Cardiac Electrophysiology PN ---
Assessment/Plan Assessment/Plan 1. Chest pain. The patient was ruled out for myocardial infarction with serial cardiac enzymes. Echocardiogram Nl EF 60%. Stress test showed no ischemia 2. Accelerated hypertension. Refusing amlodipine for leg edema. On hydralazine 50 q 8hr,Lopressor 25 bid and Cozaar 100 daily The patient also on p.r.n. clonidine as p.r.n. hydralazine as well. 3. Nonsustained VT 11 beats. No syncope or prior PA. Stress test nonischemic and EF normal. Continue Lopressor 25 bid 4. History of congestive heart failure. Echo ejection fraction of 60%. EKG shows sinus rhythm with LVH. 5. History of CVA with left-sided hemiparesis. 6. Left ankle pain and hx of Fx .XR pending result RODRIGO RN Subjective Subjective No CP. Nuclear stress test was nonischemic and no more VT . Had Left foot X ray for pain. Objective Last 24 Hour Vital Signs Date Time Temp Pulse Resp B/P (MAP) Pulse Ox O2 Delivery O2 Flow Rate FiO2 02/06/20 09:00 Room Air 02/06/20 08:00 96.6 76 19 133/62 (85) 97 02/06/20 08:00 79 02/06/20 05:33 160/84 02/06/20 04:00 97.7 72 18 160/99 (119) 97 02/06/20 04:00 65 02/06/20 01:36 74 164/87 (112) 02/06/20 00:37 181/92 02/06/20 00:00 98.1 72 18 181/92 (121) 95 02/06/20 00:00 76 02/05/20 22:30 73 162/85 (110) 02/05/20 21:14 174/97 02/05/20 21:00 Room Air 02/05/20 20:00 78 02/05/20 20:00 98.1 75 20 174/97 (122) 95 02/05/20 16:00 72 02/05/20 16:00 99.0 69 19 130/78 (95) 97 02/05/20 14:36 140/76 02/05/20 12:00 98.8 68 18 129/76 (93) 97 02/05/20 12:00 85 Intake and Output 02/05/20 02/06/20 19:00 07:00 Intake Total 140 ml 250 ml Output Total 1200 ml 200 ml Balance -1060 ml 50 ml Intake Oral 140 ml 250 ml Output Urine Total 1200 ml 200 ml # Voids 3 3 Laboratory Tests Test 02/06/20 05:55 White Blood Count 4.2 K/UL (4.8-10.8) L Red Blood Count 4.42 M/UL (4.20-5.40) Hemoglobin 13.0 G/DL (12.0-16.0) Hematocrit 40.3 % (37.0-47.0) Mean Corpuscular Volume 91 FL (80-99) Mean Corpuscular Hemoglobin 29.5 PG (27.0-31.0) Mean Corpuscular Hemoglobin Concent 32.3 G/DL (32.0-36.0) Red Cell Distribution Width 13.4 % (11.6-14.8) Platelet Count 205 K/UL (150-450) Mean Platelet Volume 9.9 FL (6.5-10.1) Neutrophils (%) (Auto) 39.9 % (45.0-75.0) L Lymphocytes (%) (Auto) 45.0 % (20.0-45.0) Monocytes (%) (Auto) 10.2 % (1.0-10.0) H Eosinophils (%) (Auto) 3.0 % (0.0-3.0) Basophils (%) (Auto) 1.9 % (0.0-2.0) Sodium Level 138 MMOL/L (136-145) Potassium Level 3.4 MMOL/L (3.5-5.1) L Chloride Level 102 MMOL/L (98-107) Carbon Dioxide Level 30 MMOL/L (21-32) Anion Gap 6 mmol/L (5-15) Blood Urea Nitrogen 20 mg/dL (7-18) H Creatinine 1.5 MG/DL (0.55-1.30) H Estimat Glomerular Filtration Rate 41.8 mL/min (>60) Glucose Level 105 MG/DL (74-106) Calcium Level 9.0 MG/DL (8.5-10.1) Magnesium Level 2.0 MG/DL (1.8-2.4) Objective HEAD AND NECK: No JVD. LUNGS: Clear. CARDIOVASCULAR: Regular S1 and S2 with no gallop. ABDOMEN: Soft. EXTREMITIES: Bilateral lower extremity edema. Trino Gray MD Feb 06, 2020 10:47
[2020-02-06] MEDS: Enoxaparin 40mg Inj SUBQ SCH (11:00)
--- NOTE | 2020-02-06 11:57 | NUR ---
CASE MANAGEMENT: NOTE DC ORDER NOTED. ADDRESS CONFIRMED WITH PT. PT WOULD LIKE A RELEASE OF INFORMATION. NURSING MADE AWARE. NURSING TO PROVIDE FORM
[2020-02-06 12:00] VITALS: BP 139/96
--- NOTE | 2020-02-06 12:02 | NUR ---
INSURANCE DC INSTRUCTIONS AND PROGRESS NOTES FAXED TO [facility] PH#[phone] FAX#[phone] REVIEWS/CLINICALS
--- NOTE | 2020-02-06 12:07 | Discharge Summary ---
Discharge Summary Hospital Course Date of Admission Feb 02, 2020 at 06:37 Date of Discharge Admitting Diagnosis bilateral leg weakness, chest pain HPI Renee Krian is a 70 year old female who was admitted on Feb 02, 2020 at 06:37 for Bilateral Leg Weakness, Chest Pain Hospital Course Mrs. Cortes is a 70-year-old female with past medical history of bilateral lower extremity neuropathy, bilateral lower extremity edema, hypertension, CKD, history of CVA who initially presented for bilateral lower extremity weakness and numbness and tingling. Upon admission her blood pressure was over 200 with mild KACIE at 1.5. Patient reports difficulty with controlling her blood pressure especially in times when she has an exacerbation of her back pain. She is adamant in not taking a beta-tariq as told by her previous industrial robotics mechanic and she does not not take Norvasc because it causes lower extremity swelling. Losartan was continued during her admission and she was started on hydralazine uptitrated to 75 mg TID. Throughout her admission her blood pressure would fluctuate during the day depending on how much pain she was in. As for her LE symptoms, it is chronic in nature and CT of the spine showed no acute abnormalities. Also during her admission she was complaining of bilateral lower extremity swelling along with an episode of chest pain. Trops neg, and Lexiscan completed per cardiology Recs which did not show any ischemic or reversible ischemic changes. She was given IV Lasix for lower extremity edema which improv ed. She notes her left ankle and knee has been sore for over a year since a fall; XRAY negative for acute fx. US bilateral LE neg for DVT. Patient otherwise remained hemodynamically stable without any acute respiratory compromise. After discussion with cardiology Dr. Segura patient has been deemed stable and cleared for discharge back to her assisted living. #chest pain, ACS ruled out 2d echo- reviewed ef 60% f/u stress test completed, no reversible ischemic changes will continue 20mg lasix for 7 more days and Potassium supplement # BL LE weakness - likley deconditioning - CT lumbar spine showed no acute or chronic changes - trial of gabapentin 100 mg daily for neuropathy #Hypertensive emergency- possible end organ damage (KACIE) -Hold home HCTZ due to KACIE - continue losartan 100 mg daily - continue hydralazine 75 mg TID - patient refused Amlodipine 10- as it causes swelling - patient refuses all beta blockade #KACIE- vs KACIE on CKD - stable - avoid nephrotoxins; NSAIDs #History of CVA continue statin she is allergic to ASA #Hypokalemia replace prn #Obesity counselled to lose weight, life style modifications offered Follow up with PCP in 1-2 weeks for continue re-evaluation I spent 31 minutes on this encounter. 21 minutes spent on counselling and care coordination Time may of note may not reflect time patient was seen. Discharge Discharge Vital Signs Last Vital Signs Date Time Temp Pulse Resp B/P (MAP) Pulse Ox O2 Delivery O2 Flow Rate FiO2 02/06/20 09:00 Room Air 02/06/20 08:00 96.6 76 19 133/62 (85) 97 Discharge Disposition Patient was discharged to Discharge Instructions Discharge Instructions Activity: up ad donna, light activity Diogenes Kent D.O Feb 06, 2020 12:07
--- NOTE | 2020-02-06 12:53 | Diagnostic Imaging Report ---
INDICATION: Knee pain TECHNIQUE: XRAY Knee 3v LT frontal, oblique, and lateral views of the left knee COMPARISON: None FINDINGS: There is no acute fracture or dislocation. There is mild tricompartmental knee joint osteoarthrosis. No significant knee joint effusion. No acute soft tissue abnormality. IMPRESSION: No acute fracture or dislocation.
--- NOTE | 2020-02-06 13:40 | NUR ---
PT NOTE Patient with MD order for venous duplex LLE to R/O DVT. Will wait for results of scan prior to seeing patient for PT treatment. Deysi RN notified, will follow.
[2020-02-06] MEDS ORDERED: HydrALAZINE 25mg tab ORAL SCH (14:00)
--- NOTE | 2020-02-06 14:51 | Diagnostic Imaging Report ---
INDICATION: Foot pain TECHNIQUE: XRAY Foot 2v L frontal and lateral views of the left foot COMPARISON: None FINDINGS: Evaluation is limited due to toes being held in flexion. There is no definite acute fracture or dislocation. Mild to moderate hallux valgus deformity. No acute soft tissue abnormality. IMPRESSION: Limited examination due to patient positioning. No definite acute fracture or dislocation.
[2020-02-06 16:00] VITALS: BP 136/83
--- NOTE | 2020-02-06 16:20 | NUR ---
NURSE NOTES: Received patient in bed awake. No SOB or acute distress. IV line intact. Purewick in place. HOB elevated. Bed locked in low position. Call light within reach. Will continue plan of care.
--- NOTE | 2020-02-06 16:23 | NUR ---
NURSE NOTES: Patient for discharge but said she will leave at 6pm after dinner. Transportation using taxi voucher arranged. Charge nurse made aware.
--- NOTE | 2020-02-06 18:15 | NUR ---
NURSE NOTES: Patient discharged to recuperative care via taxi voucher. No new skin issues noted. IV line removed. ID band removed. lunchroom monitor removed. Discharge instructions given, verbalized understanding. Wheeled to lobby by nurse in stable condition.
== END 2020-02-06 18:45 | disposition home or self-care (01) | DRG 194 ==
LOC: EDBD 01:40 → EMR 02:11 → 2E 06:37 → EDBEDREQ 07:13
DX: I13.0 Hypertensive heart and chronic kidney disease with heart failure and stage 1 through stage 4 chronic kidney disease, or unspecified chronic kidney disease (principal); N17.9 Acute kidney failure, unspecified; I50.33 Acute on chronic diastolic (congestive) heart failure; I47.2 Ventricular tachycardia; I69.954 Hemiplegia and hemiparesis following unspecified cerebrovascular disease affecting left non-dominant side; Z68.41 Body mass index [BMI] 40.0-44.9, adult; G62.9 Polyneuropathy, unspecified; I69.998 Other sequelae following unspecified cerebrovascular disease; J44.9 Chronic obstructive pulmonary disease, unspecified; E87.6 Hypokalemia; I16.1 Hypertensive emergency; N18.9 Chronic kidney disease, unspecified; M79.7 Fibromyalgia; E66.9 Obesity, unspecified; M25.572 Pain in left ankle and joints of left foot; M25.562 Pain in left knee; R07.9 Chest pain, unspecified; M54.5 Low back pain; M19.90 Unspecified osteoarthritis, unspecified site; R32 Unspecified urinary incontinence; Z85.038 Personal history of other malignant neoplasm of large intestine
CPT/HCPCS: 36415; 70450; 71045; 72131; 78452; 80048; 80053; 80061; 81003; 83690; 83735; 83880; 84100; 84484; 85025; 85379; 85610; 85730; 86850; 86900; 86901; 93005; 93017; 93306; 93970; 96365; 96375; 99285; J2785; J8499